=== PATIENT | female | born 1950 | race Caucasian/White ===

== ENCOUNTER → 2018-06-11 12:23 | Outpatient (CLI) | payer MEDICARE, OTHER, SELFPAY ==
[2018-06-11 11:09] VITALS: BMI 29.2
--- NOTE | 2018-06-11 12:46 | RAD_ITS ---
STUDY: X-RAY CHEST REASON FOR EXAM: Female, 68 years old. Shortness breath with cough and lightheadedness TECHNIQUE: PA and lateral views of the chest. COMPARISON: None. FINDINGS: There are interstitial fibrotic changes of the lungs. No airspace consolidation or pleural effusion. There is no demonstrated pleural abnormality. Normal size heart. Normal mediastinum and alison. Normal visualized pulmonary arteries. There is atherosclerotic calcification of the aortic arch with tortuosity. There is demineralization of the osseous structures. Normal visualized ribs, clavicles, and shoulders. There is no demonstrated abnormality of the visualized soft tissue structures of the upper abdomen. RAD/Chest PA and Lateral IMPRESSION: 1. No airspace consolidation or pleural effusion. Electronically Signed: Feliz Borges MD at 13:10 EST , Service support ,
== END ==
PROVIDERS: Family Provider Preventive Medicine Occupational Medicine; PCP Preventive Medicine Occupational Medicine; Visit Provider Physician Assistant Medical
DX: R06.02 Shortness of breath (principal); R05 Cough
CPT/HCPCS: 71046

== ENCOUNTER → 2021-02-25 | Outpatient (CLI) | payer MEDICARE, OTHER, SELFPAY ==
[2021-02-25 17:57] LABS: Bacteria 0 SEEN /hpf (None Seen); Mucous, Urine 0 SEEN /hpf (<or=2+); Red Blood Cells-Urine 0 SEEN /hpf (0-5)
[2021-02-25 18:03] LABS: Color, Urine Yellow (Yellow); Glucose, Dipstick Normal (Normal); Ketone-Dipstick 5 mg/dl (Negative); Leukocyte Esterase-Dipstick 25 /ul (Negative); Nitrite-Dipstick Negative (Negative); Occult Blood-Urine Negative /ul (Negative); Protein-Dipstick Negative (Negative); Specific Gravity, Urine 1.025 (1.002-1.030); Urine Bilirubin Dipstick Negative (Negative); Urine Clarity Clear (Clear); Urine Urobilinogen 1 mg/dl (Normal)
[2021-02-25 18:11] LABS: Squamous Epithelial Cells - UA 0-5 SEEN /hpf (5-10); White Blood Cells 0-5 SEEN /hpf (0-5)
== END | disposition home or self-care (01) ==
LOC: LABSPEC 16:44
PROVIDERS: PCP Preventive Medicine Occupational Medicine; Visit Provider Physician Assistant Surgical
DX: N39.0 Urinary tract infection, site not specified (principal)
CPT/HCPCS: 81001; 87086; 87088

== ENCOUNTER 2023-03-20 10:44 | Emergency (ER) | payer MEDICARE, OTHER, SELFPAY ==
[2023-03-20 10:45] VITALS: BP 222/103; PULSE 87; RESP 16; TEMP 36.3; O2SAT 98; BMI 30.9
--- NOTE | 2023-03-20 11:08 | VDLE_ITS ---
Reason For Study: Swelling BLE RIGHT LEFT GSV is normal. GSV is normal. CFV is compressible, spontaneous, phasic, CFV is compressible, spontaneous, phasic, competent and demonstrates normal competent, and demonstrates normal augmentation. augmentation. FV is compressible, spontaneous, phasic, FV is compressible, spontaneous, phasic, competent and demonstrates normal competent and demonstrates normal augmentation. augmentation. POP V is compressible, spontaneous, phasic, POP V is compressible, spontaneous, phasic, competent and demonstrates normal competent and demonstrates normal augmentation. augmentation. T/P Trunk is compressible. T/P Trunk is compressible. PTV is compressible. PTV is compressible. RT PerV is compressible. LT PerV is compressible. Difficult to visualize calf veins due to Patient unable to tolerate compressions at edema. distal thigh; relied on color doppler Procedure Difficult to visualize calf veins due to This is a venous duplex using B-mode, color edema. flow and spectral Doppler. Exam performed portable in ED. A preliminary report was called and/or faxed to Dr. Roque. VL/Venous Duplex US - Yovany Extrem Interpretation Summary Deep veins of the bilateral lower extremities are patent and compressible segme ntally. There is no evidence of bilateral lower extremity deep vein thrombosis. The bilateral great saphenous veins appear patent and compressible segmentally. Ordering Physician: María Roque Referring Physician: Edwin Vitale Performed By: Rody Jiang, FRANCESCA, RVT
--- NOTE | 2023-03-20 11:09 | EX.ED.DYSGE1 ---
HPI History of Present Illness Chief Complaint: Hypertension Detail of Chief Complaint: High blood pressure Informant: patient and spouse/S.O. Narrative Narrative: Patient presents the emergency department from [facility] for elevated blood pressure. Patient states that she went there because she has been having swelling and pain in both legs. Patient forgot to take one of her blood pressure medicines that she takes for the last several days. She was told she might be on the verge of a stroke and referred to the ER. Patient denies any chest pain or shortness of breath out of the ordinary. She denies recent travel or surgery. No history of PE or DVT. He has a mild headache. Patient not anticoagulated. [facility] Medical History Anemia Arthritis Diarrhea Fatigue Frequent headaches Hemorrhoids Hypertension Knee pain Shoulder pain stomach ulcers Home Medications celecoxib 200 mg capsule (Celebrex) 200 mg PO QDAY 08/08/17 [History Last Taken Unknown] conjugated estrogens 0.3 mg tablet (Premarin) PO 08/08/17 [History Last Taken Unknown] doxazosin 4 mg tablet 4 mg PO QDAY 08/08/17 [History Last Taken Unknown] lactobacillus combination no.8 3 billion cell capsule (Adult Probiotic) 3,000 mmu cells PO QDAY 08/08/17 [History Last Taken Unknown] omeprazole magnesium 2.5 mg oral suspension,delayed release (Prilosec) 10 mg PO QDAY 08/08/17 [History Last Taken Unknown] fluticasone propionate 50 mcg/actuation nasal spray,suspension (Flonase Allergy Relief) 2 spray intranasal DAILY #9.9 grams 01/09/18 [Rx Last Taken Unknown] phenazopyridine 200 mg tablet (Pyridium) 200 mg PO TID PRN urinary pain #10 tabs 07/26/22 [Rx Last Taken Unknown] furosemide 20 mg tablet (Lasix) 20 mg PO BID #10 tabs 03/20/23 [Rx Last Taken Unknown] Allergy/AdvReac Type Severity Reaction Status Date / Time Penicillins Allergy Intermediate Hives Verified 03/20/23 10:47 Sulfa (Sulfonamide Allergy Intermediate hives Verified 03/20/23 10:47 Antibiotics) adhesive tape Allergy Mild unknown Verified 03/20/23 10:47 Social History Smoking Status: Never smoker alcohol intake: never ROS ROS ED Review of Systems ROS Unobtainable: other Constitutional Constitutional ED: Reports lethargy; Denies chills, fever(s), sweats or weight loss Eyes Eyes: Denies blurry vision, change in vision or diplopia ENT ENT ED: Denies rhinorrhea or sore throat Cardiovascular Cardiovascular: Reports chest pain and racing heartbeat; Denies orthopnea Respiratory/Chest Respiratory/Chest: Denies cough, dyspnea, dyspnea on exertion, orthopnea or sputum Gastrointestinal Gastrointestinal: Denies abdominal pain, diarrhea, nausea or vomiting Genitourinary Genitourinary ED: Denies dysuria, hematuria or urinary frequency Musculoskeletal Musculoskeletal: Reports other Details: Bilateral leg pain and swelling ; Denies arthralgias, back pain, myalgias or neck pain Integumentary Denies abscess, Abrasions or rash Neurologic Neurologic: Denies headache(s) or weakness Psychiatric Psychiatric: Denies anxiety, depression or suicidal thoughts Endocrine Endocrinology: Denies polydipsia, polyphagia or polyuria Hematologic/Lymphatic Hematologic/Lymphatic: Denies easy bleeding, easy bruising or lymphadenopathy Allergic/Immunologic Allergic/Immunologic ED: Denies mouth swelling, tongue swelling or urticaria EXAM Physical Exam Const Vital Signs: 03/20/23 10:45 03/20/23 11:18 03/20/23 11:48 Temperature 97.4 F L Temperature Source Temporal Pulse Rate 87 Respiratory Rate 16 Respiratory Effort Normal Non-Labored Respiratory Pattern Normal Blood Pressure 222/103 H 237/81 H Blood Pressure Mean 142 133 Pulse Ox 98 Oxygen Delivery Method Room Air 03/20/23 12:18 03/20/23 13:10 03/20/23 13:39 Temperature Temperature Source Pulse Rate 81 Respiratory Rate 17 Respiratory Effort Respiratory Pattern Blood Pressure 191/85 H 182/67 H 170/77 H Blood Pressure Mean 120 105 108 Pulse Ox 98 Oxygen Delivery Method Room Air Positive well nourished and well developed General Appearance ED: well developed and NAD HEENT Reports TM's clear and moist mucous membranes normocephalic and atraumatic; Negative for trauma or tenderness Tympanic Membrane ED: Yes TM's clear Eyes PERRL and EOMs intact bilaterally General Eye ED: Negative for pale conjunctiva or scleral icterus Neck no lymphadenopathy, supple and no JVD General: Negative for tenderness Chest Wall inspection of chest normal and palpation of chest normal Chest: Negative for tenderness Resp normal respiratory effort and clear to auscultation bilaterally Effort and Inspection: Negative for respiratory distress or pain with movement Auscultation: Negative for rhonchi, wheezes or diminished lung sounds Cardio regular rate, regular rhythm, S1 normal heart sound, S2 normal heart sound and no murmurs Peripheral Pulses: pulses 2+ throughout GI normal to inspection, nondistended, normoactive bowel sounds, soft to palpation, non-tender, non-distended and no masses Back/Spine no CVA tenderness and no thoracic nor lumbar tenderness Extremity Extremity Narrative: Patient with +3 edema both lower extremities. No ropes or cords palpated. Neurovascular intact. General Extremety ED: Negative for edema General Extremity: Negative for edema Neuro oriented x3, CN's II-XII intact bilaterally, no sensory deficits noted and gait normal Sensorium / Orientation: awake, alert, oriented to person, oriented to place and oriented to time Motor Exam: strength 5/5 throughout and strength abnormal Psych mental status grossly normal Skin no rashes or lesions noted and no wounds MDM MDM MDM Narrative Medical decision making narrative: Patient presents with elevated blood pressure from urgent care. She was being seen for swelling in her legs. Patient has not been taking one of her blood pressure medications that she does not know the name of. IV line established. EKG obtained arrival showed sinus rhythm with a rate of 66 bpm with no acute ST segment changes noted. CBC with differential showed a white count of 4.9 with hemoglobin 8.5 and platelet count of 151. Chemistries unremarkable. BNP was slightly elevated at 101.3. Troponin normal at 7. Urinalysis without signs of infection. I did give patient hydralazine 5 mg and her blood pressure now 170s over 70s. I attempted to contact her primary care physician unsuccessfully to discuss further treatment. I recommended she go back on her second blood pressure medicine which she has at home she believes. I also will start her on Lasix for 5 days. And advised her to follow-up with her primary care physician within next 3 to 5 days. Also recommended that she monitor her blood pressure at home until she follows up with them and has a record of her blood pressures so that proper adjustments can be made. Patient also had venous Dopplers while here to rule out DVT and was negative for DVT. Lab Data Attestation: I reviewed the patient's lab results. Labs: Laboratory Results - last 24 hr 03/20/23 03/20/23 11:28 13:06 WBC 4.9 RBC 4.03 L Hgb 8.5 L Hct 29.4 L MCV 73.0 L MCH 21.1 L MCHC 28.9 L RDW Std Deviation 51.4 H RDW Coeff of Daphney 19.5 H Plt Count 151 MPV 11.2 Immature Gran % (Auto) 0.000 Neut % (Auto) 60.9 Lymph % (Auto) 30.8 [place] % (Auto) 6.9 Eos % (Auto) 0.8 Baso % (Auto) 0.6 Absolute Neuts (auto) 3.0 Absolute Lymphs (auto) 1.52 Nucleated RBC % 0 Sodium 141 Potassium 4.1 Chloride 110 H Carbon Dioxide 28.0 Anion Gap 3 L BUN 16 Creatinine 0.60 Estim Creat Clear Calc 40.21 Est GFR (MDRD) Af Amer 125 Est GFR (MDRD) Non-Af 103 BUN/Creatinine Ratio 26.5 H Glucose 95 Calcium 9.4 Troponin I High Sens 7 B-Natriuretic Peptide 101.3 H Urine Color Yellow Urine Clarity Sl. Cloudy Urine pH 6.5 Ur Specific [place] 1.010 Urine Protein Negative Urine Glucose (UA) Normal Urine Ketones 15 H Urine Occult Blood Negative Urine Nitrite Negative Urine Bilirubin Negative Urine Urobilinogen 1 H Ur Leukocyte Esterase 100 H Urine RBC 0 SEEN Urine WBC 10-25 SEEN Ur Squamous Epith Cells 0-5 SEEN Urine Bacteria 0 SEEN Urine Mucus 0 SEEN EKG Initial EKG: Attestation: I personally reviewed and interpreted this EKG as follows: Comments: Sinus rhythm with a rate of 66 bpm with no acute ST segment changes noted. Discharge Plan Triage Chief Complaint: Hypertension ED Provider: María Roque Dx/Rx/DC Orders Clinical Impression: Leg edema, Hypertension Instructions: ED Peripheral Edema, Bilateral, ED Hypertension, Established Prescriptions: New furosemide [Lasix] 20 mg tablet 20 mg PO BID Qty: 10 0RF No Action celecoxib [Celebrex] 200 mg capsule 200 mg PO QDAY omeprazole magnesium [Prilosec] 2.5 mg susp,delayed release for recon 10 mg PO QDAY lactobacillus combination no.8 [Adult Probiotic] 3 billion cell capsule 3,000 mmu cells PO QDAY doxazosin 4 mg tablet 4 mg PO QDAY conjugated estrogens [Premarin] 0.3 mg tablet PO fluticasone propionate [Flonase Allergy Relief] 50 mcg/actuation spray,suspension 2 spray INTRANASAL DAILY Qty: 9.9 0RF Rx Instructions: administer into each nostril phenazopyridine [Pyridium] 200 mg tablet 200 mg PO TID PRN (Reason: urinary pain) Qty: 10 0RF Primary Care Provider: Edwin Vitale Referrals: Edwin Vitale DO [Primary Care Provider] - 3-5 Days Disposition Disposition: Home, Self Care
--- NOTE | 2023-03-20 11:11 | EKG12_ITS ---
Test Reason : HTN Blood Pressure : / mmHG Vent. Rate : 066 BPM Atrial Rate : 066 BPM P-R Int : 222 ms QRS Dur : 090 ms QT Int : 410 ms P-R-T Axes : 052 -18 006 degrees QTc Int : 429 ms Sinus rhythm with 1st degree A-V block RSR' or QR pattern in V1 suggests right ventricular conduction delay Inferior infarct , age undetermined Abnormal ECG Confirmed by UMANG WEN, CHANEL ([id number]), supervising editor trailer SMITA JACKSON ([id number]) on 03/22/2023 9:46:08 AM Referred By: María Roque Confirmed By:CHANEL HECK MD
[2023-03-20 11:48] VITALS: BP 237/81
[2023-03-20 11:49] LABS: Absolute Lymphocyte Count 1.52 X10^3/uL (0.83-4.51); Basophil# 0.03 X10^3/uL; Basophil% 0.6 % (0-1); Eosinophil# 0.04 X10^3/uL; Eosinophils% 0.8 % (0-5); Hematocrit 29.4 % (37-47); Hemoglobin 8.5 g/dL (12.0-15.0); Lymphocyte # 1.52 X10^3/ul (0.83-4.51); Lymphocyte % 30.8 % (19-41); Mean Corp Hgb Conc 28.9 g/dL (32-36); Mean Corpuscular Hgb 21.1 pg (27.0-32.0); Mean Platelet Vol. 11.2 fl (6.2-12.0); Monocyte# 0.34 X10^3/uL; Monocyte% 6.9 % (0-10); NRBC Flagged by Analyzer 0 % (0-5); Neutrophil % 60.9 % (47-70); Platelet Count 151 K/mm3 (150-450); RBC Distribution Width CV 19.5 % (11.6-14.6); RBC Distribution Width SD 51.4 fl (35.1-43.9); Red Blood Count 4.03 M/mm3 (4.2-5.4); White Blood Count 4.9 K/mm3 (4.4-11.0)
[2023-03-20] MEDS: hydrALAZINE 20 MG/ML Vial 10 MG IV (11:52)
[2023-03-20 12:14] LABS: BNP,B-Type NATRIURETIC PEPTIDE 101.3 pg/mL (0-100)
[2023-03-20 12:18] VITALS: BP 191/85
[2023-03-20 12:50] LABS: Anion Gap 3 (5-15); BUN 16 mg/dL (7-18); BUN/Creat Ratio 26.5 RATIO (10-20); Calcium,Total 9.4 mg/dL (8.5-10.1); Chloride 110 mmol/L (98-107); EST Glomerular Filtration Rate 103 mL/min (>60); Est Glom Filt Rate - Afr Amer 125 mL/min (>60); Estimated Creatinine Clearance 40.21 ml/min; Glucose 95 mg/dL (74-106); Potassium 4.1 mmol/L (3.5-5.1); Sodium Level 141 mmol/L (136-145); Troponin-I HS 7 pg/mL (3.0-54.0)
[2023-03-20 13:10] VITALS: BP 182/67
[2023-03-20 13:29] LABS: Bacteria 0 SEEN /hpf (None Seen); Mucous, Urine 0 SEEN /hpf (<or=2+); Red Blood Cells-Urine 0 SEEN /hpf (0-5)
[2023-03-20 13:32] LABS: Color, Urine Yellow (Yellow); Glucose, Dipstick Normal (Normal); Ketone-Dipstick 15 mg/dl (Negative); Leukocyte Esterase-Dipstick 100 /ul (Negative); Nitrite-Dipstick Negative (Negative); Occult Blood-Urine Negative /ul (Negative); Protein-Dipstick Negative (Negative); Urine Bilirubin Dipstick Negative (Negative); Urine Clarity Sl. Cloudy (Clear); Urine Urobilinogen 1 mg/dl (Normal); Urine pH 6.5 (5.0 - 8.0)
[2023-03-20 13:39] VITALS: BP 170/77; PULSE 81; RESP 17; O2SAT 98
[2023-03-20 13:48] LABS: Squamous Epithelial Cells - UA 0-5 SEEN /hpf (5-10); White Blood Cells 10-25 SEEN /hpf (0-5)
[2023-03-20] MEDS: Furosemide 40 MG/4 ML Vial IV (14:09)
== END 2023-03-20 14:16 | disposition home or self-care (01) ==
PROVIDERS: Emergency Provider Emergency Medicine; PCP Preventive Medicine Occupational Medicine; Referring Provider Emergency Medicine; Visit Provider Emergency Medicine
DX: R60.0 Localized edema (principal); I10 Essential (primary) hypertension
CPT/HCPCS: 80048; 81001; 83880; 84484; 85025; 93005; 93970; 96374; 96375; 99284; A4216; J1940

== ENCOUNTER → 2023-04-14 | Outpatient (CLI) | payer MEDICARE, OTHER, SELFPAY ==
--- NOTE | 2023-04-14 11:05 | RAD_ITS ---
INDICATION: cough -- PATIENT IS IN ROOM 1 FOR WHEN THEY RETURN EXAMINATION/TECHNIQUE: X-RAY - XR Chest 2 Views COMPARISON: Prior study dated: 06/11/2018. FINDINGS: LINES/DEVICES: None. LUNGS: Mild stranding/scarring in the left lower lung. No focal infiltrate is seen. No evidence of pleural effusions. MEDIASTINUM AND CARDIOVASCULAR STRUCTURES: The cardiac silhouette is within normal limits. Atherosclerotic calcifications and tortuosity of the thoracic aorta. BONES AND SOFT TISSUES: Mild degenerative changes of the thoracic spine. RAD/Chest PA and Lateral IMPRESSION: No radiographic evidence of acute cardiopulmonary disease. Electronically Signed: Parveen Louise MD at 11:22 [facility] ,
== END | disposition home or self-care (01) ==
LOC: MTRAD 11:02
PROVIDERS: PCP Preventive Medicine Occupational Medicine; Referring Provider Physician Assistant Surgical; Visit Provider Physician Assistant Surgical
DX: R05.9 Cough, unspecified (principal)
CPT/HCPCS: 71046

== ENCOUNTER 2025-04-12 13:46 | Inpatient (IN) | payer MEDICARE, OTHER, SELFPAY ==
[2025-04-12] VITALS (45 sets, daily range): BP systolic 107–239; BP diastolic 56–119; PULSE 53–190; RESP 13–27; TEMP 36.4–36.6; O2SAT 96–100; BMI 31.8
--- NOTE | 2025-04-12 14:34 | ED.VIS.STROK ---
HPI History of Present Illness Chief Complaint: Dizziness Detail of Chief Complaint: Dizziness and acute bilateral headache Informant: patient and family Onset/Context/Timing Onset: Today and Hours Context: Sudden Onset Timing: Continuous Quality and Location: Positive for - (Dizziness which patient defined as floaters) Onset: 30 minutes prior to arrival Current Severity: Moderate Maximum Severity: Severe Worsened by: Nothing Relieved by: Nothing Associated Symptoms Associated Symptoms: Positive for Headache and Nausea; Negative for Vomiting or Chest Pain Narrative Narrative: Patient is a 75-year-old woman. She is not assertive with her answers. She will respond I believe so. After speaking with daughters who arrived after she was seen in triage they have noticed that she is not definitive with answering questions for approximately 3+ months. Daughter informing that she had just finished eating when she developed acute bilateral headache and dizziness . She was asked specifically if dizziness meant she was spinning, the room was spinning or she was lightheaded. Her response was I see black dots that are dancing in my vision. She denies loss of vision partial or complete, blurred vision or difficulty seeing objects or reading. She denies trouble with speech or swallowing. She denies chest pain, pressure, tightness or heaviness. She denies pain in her back. She does have a history of hypertension. She does not know what her baseline blood pressure is. She does endorse nausea without vomiting. She denies abdominal pain. She denies dysuria, frequency, urgency or hematuria. She denies numbness or tingling in her arms or legs. She denies trouble with her balance or walking. Prior similar symptoms: No Recent Illness/Hospitalization: No PFSH [facility] Medical History (Updated 04/12/25 @ 16:[address] Clemencia Yun MD) GERD (gastroesophageal reflux disease) History of gastric ulcer Frequent headaches Anemia Hemorrhoids Arthritis Hypertension Home Medications ?Medication ?Instructions ?Recorded ?Last Taken ?Type doxazosin 4 mg tablet 4 mg PO QDAY 08/08/17 Unknown History lactobacillus combination no.8 3 3,000 mmu cells PO QDAY 08/08/17 Unknown History billion cell capsule (Adult Probiotic) fluticasone propionate 50 2 spray intranasal DAILY #9.9 grams 01/09/18 Unknown Rx mcg/actuation nasal spray,suspension (Flonase Allergy Relief) atenolol 25 mg tablet 25 mg PO DAILY 04/12/25 Unknown History clobetasol 0.05 % topical cream 1 applic topical BID PRN yeast 04/12/25 Unknown History infection conjugated estrogens 0.625 mg 0.625 mg PO DAILY 04/12/25 Unknown History tablet (Premarin) ferrous gluconate 240 mg (27 mg 240 mg PO BID 04/12/25 Unknown History iron) tablet furosemide 20 mg tablet (Lasix) 20 mg PO DAILY 04/12/25 Unknown History omeprazole 20 mg capsule,delayed 20 mg PO DAILY 04/12/25 Unknown History release Allergy/AdvReac Type Severity Reaction Status Date / Time Penicillins Allergy Intermediate Hives Verified 04/12/25 13:49 Sulfa (Sulfonamide Allergy Intermediate hives Verified 04/12/25 13:49 Antibiotics) adhesive tape Allergy Mild unknown Verified 04/12/25 13:49 Family History no significant family his Social History (Updated 04/12/25 @ 16:[address] Clemencia Yun MD) household members: spouse Smoking Status: Former smoker alcohol intake: never substance use type: does not use ROS ROS ED Constitutional Constitutional ED: Denies chills, fever(s), subjective, sweats or weakness Eyes Eyes: Reports other Details: Per HPI narrative ; Denies blurry vision, change in vision or diplopia ENT ENT ED: Denies ear pain, rhinorrhea or sore throat Cardiovascular Cardiovascular: Denies chest pain, palpitations, paroxysmal nocturnal dyspnea or racing heartbeat Respiratory/Chest Respiratory/Chest: Denies cough, dyspnea, dyspnea on exertion or paroxysmal nocturnal dyspnea Gastrointestinal Gastrointestinal: Reports nausea; Denies abdominal pain, diarrhea, melena or vomiting Genitourinary Genitourinary ED: Denies dysuria, hematuria or urinary frequency Musculoskeletal Musculoskeletal: Reports neck pain; Denies arthralgias, back pain or myalgias Integumentary Denies abscess, Abrasions or rash Neurologic Neurologic: Reports headache(s); Denies paresthesias or weakness Psychiatric Psychiatric: Denies anxiety or depression Endocrine Endocrinology: Denies polydipsia, polyphagia or polyuria Hematologic/Lymphatic Hematologic/Lymphatic: Denies easy bleeding or easy bruising EXAM Physical Exam Const Vital Signs: 04/12/25 13:48 04/12/25 14:00 04/12/25 14:12 Temperature 98 F Temperature Source Temporal Pulse Rate 125 H 64 Respiratory Rate 16 18 Blood Pressure 189/94 H 239/99 H Blood Pressure Mean 125 145 Pulse Ox 99 98 97 Oxygen Delivery Method Room Air Room Air Room Air 04/12/25 14:13 04/12/25 14:15 04/12/25 14:15 Temperature Temperature Source Pulse Rate 118 H 119 H 120 H Respiratory Rate 19 H 17 23 H Blood Pressure 171/99 H 171/99 H Blood Pressure Mean 123 117 Pulse Ox 97 96 97 Oxygen Delivery Method Room Air 04/12/25 14:20 04/12/25 14:25 04/12/25 14:30 Temperature Temperature Source Pulse Rate 70 77 70 Respiratory Rate 22 H 18 16 Blood Pressure 202/72 H 209/113 H 187/109 H Blood Pressure Mean 106 132 135 Pulse Ox 99 98 98 Oxygen Delivery Method Room Air 04/12/25 14:30 04/12/25 14:35 04/12/25 14:40 Temperature Temperature Source Pulse Rate 125 H 53 L 59 L Respiratory Rate 18 18 20 H Blood Pressure 187/109 H 191/77 H 203/77 H Blood Pressure Mean 133 109 114 Pulse Ox 97 97 98 Oxygen Delivery Method 04/12/25 14:45 04/12/25 14:50 04/12/25 14:55 Temperature Temperature Source Pulse Rate 71 70 Respiratory Rate 13 16 Blood Pressure 170/116 H 195/72 H 158/96 H Blood Pressure Mean 132 106 111 Pulse Ox 98 97 Oxygen Delivery Method 04/12/25 15:00 04/12/25 15:00 04/12/25 15:05 Temperature Temperature Source Pulse Rate 155 H 190 H Respiratory Rate 24 H 23 H Blood Pressure 107/77 107/77 120/69 Blood Pressure Mean 88 88 83 Pulse Ox 99 Oxygen Delivery Method 04/12/25 15:10 04/12/25 15:15 04/12/25 15:20 Temperature Temperature Source Pulse Rate 87 84 70 Respiratory Rate 18 27 H 13 Blood Pressure 126/86 H 185/92 H 187/92 H Blood Pressure Mean 100 113 117 Pulse Ox 99 100 100 Oxygen Delivery Method 04/12/25 15:25 04/12/25 15:30 04/12/25 15:31 Temperature Temperature Source Pulse Rate 71 68 Respiratory Rate 22 H 16 Blood Pressure 192/94 H 190/87 H Blood Pressure Mean 116 111 Pulse Ox 96 100 Oxygen Delivery Method 04/12/25 15:35 04/12/25 15:40 04/12/25 15:45 Temperature Temperature Source Pulse Rate 75 76 115 H Respiratory Rate 18 19 H 16 Blood Pressure 197/99 H 204/90 H 176/107 H Blood Pressure Mean 125 121 129 Pulse Ox 99 99 98 Oxygen Delivery Method 04/12/25 15:50 04/12/25 15:55 04/12/25 16:00 Temperature Temperature Source Pulse Rate 115 H 77 77 Respiratory Rate 17 21 H 14 Blood Pressure 194/108 H 192/87 H 193/91 H Blood Pressure Mean 131 117 120 Pulse Ox 100 99 Oxygen Delivery Method 04/12/25 16:05 04/12/25 16:10 Temperature Temperature Source Pulse Rate 78 80 Respiratory Rate 20 H 15 Blood Pressure 200/79 H 185/81 H Blood Pressure Mean 112 109 Pulse Ox 99 99 Oxygen Delivery Method Positive well nourished and well developed General Appearance ED: well developed and NAD HEENT Reports moist mucous membranes atraumatic Eyes PERRL and EOMs intact bilaterally Eyes Narrative: There is no nystagmus. There is no visual field cut. There is no photophobia. There is no APD. She has miosis and unable to see fundi. Will not dilate until after CAT scan has been performed. General Eye ED: Negative for pale conjunctiva or scleral icterus Neck no lymphadenopathy, supple and no JVD Neck Narrative: There is no meningeal findings. Chest Wall inspection of chest normal and palpation of chest normal Resp normal respiratory effort and clear to auscultation bilaterally Cardio Rate: bradycardia Rhythm: regular rhythm Heart Sounds: S1 normal and S2 normal GI normal to inspection, nondistended, normoactive bowel sounds, soft to palpation, non-tender, non-distended and no masses Back/Spine no CVA tenderness Extremity normal to inspection Extremity Narrative: Minimal discoloration due to venous stasis dermatitis. General Extremety ED: Yes edema General Extremity: edema Neuro oriented x3, CN's II-XII intact bilaterally and no sensory deficits noted Neuro Narrative: There is no clonus Babinski sign noted right or left. Mariajose Coma Scale: document GCS findings Spontaneous Obeys Commands Oriented 15 Sensorium / Orientation: alert Speech: speech normal Motor Exam: strength 5/5 throughout Psych mental status grossly normal Skin no wounds Lesions: no lesions Rashes: no rashes MDM MDM MDM Narrative Medical decision making narrative: With abrupt onset of headache need to evaluate for tension headache versus vascular headache versus subarachnoid hemorrhage versus hypertensive bleed versus giant cell arteritis since she has pain over the temporal area bilaterally. This would be unusual, however. Stroke order set was initiated. I was unaware that the stroke order set for hemorrhage did not include a CAT scan so there was a delay in ordering the CAT scan. Patient was bradycardic with a blood pressure of 205 systolic. Apresoline was ordered. Patient received the Apresoline. She was then sent to radiology suite for CAT scan. iv technician called because of a heart rate of 190. Patient was brought back because of significant drop in her pressure. She was noted to have a narrow complex tachycardia. Regular and consistent with PSVT on the monitor. EKG was obtained and confirms paroxysmal supraventricular tachycardic. She has ST segment abnormality in aVR, V1 with elevation and depression in 1, 2, V2, V3 4, 5 and 6. There was no EKG obtained prior to this. Patient was treated with 6 mg of adenosine. Her rhythm broke and what appeared to be a sinus rhythm. EKG was obtained and reveals a rate of 84 in my opinion sinus. Computer is reading as atrial fibrillation. There is premature complex noted as it was a ventricular premature beat nonapparent beat. QRS duration is 84 ms. QT duration 3 to 34 ms. Morrison is normal. Because of the computer reading A-fib I obtained a rhythm strip and in my opinion patient is in a sinus rhythm at this point with a rate that is varying. Nursing staff informing that her pressure is elevated again. I informed them to give the 5 mg of metoprolol. Her heart rates in the 70 to 80s at this point. She is now having a regular rhythm will obtain EKG to determine if there is any ischemic changes that is present especially since her rate is now normal. 30 EKG reveals normal sinus rhythm rate of 73. There is no ischemic changes. There is no ST elevation in aVR or V1. The inverted T waves are noted in lead II, 3 and the 2 through V6 are probably rate dependent. She was symptomatic when she was in PSVT. Need to consider coronary artery disease especially in a patient of 75 years of age. For this reason serial troponins were ordered. History & Record Review Additional record(s) reviewed:: Prior outpatient record (Seen March 20 for acute pharyngitis, note authored by Kwaku Mak. Seen February at urgent care and note authored by Shankar Huynh for sinusitis. Seen May 2024 for otitis media) and Prior labs (ER visit March 20, 2023 for hypertension. Note authored by Dr. Greenfield. She was seen in the urgent care prior to ER visit. She was discharged from the ER.) Lab Data Attestation: I reviewed the patient's lab results. Lab results narrative: CBC is unremarkable. Lactate is normal at 1.9. Comprehensive metabolic panel is remarkable for slightly elevated chloride at 107 and glucose of 127. CO2 and anion gap are normal. Hepatic profile is normal. First troponin is slightly elevated. Labs: Laboratory Results - last 24 hr 04/12/25 04/12/25 14:02 15:16 WBC 6.6 RBC 4.37 Hgb 13.5 Hct 42.0 MCV 96.1 MCH 30.9 MCHC 32.1 RDW Std Deviation 48.8 H RDW Coeff of Daphney 13.6 Plt Count 144 L MPV 12.4 H Immature Gran % (Auto) 0.300 Neut % (Auto) 71.4 H Lymph % (Auto) 20.8 [place] % (Auto) 6.0 Eos % (Auto) 1.2 Baso % (Auto) 0.3 Absolute Neuts (auto) 4.7 Absolute Lymphs (auto) 1.38 Nucleated RBC % 0 ESR 1 PT 13.3 INR 1.0 APTT 26.1 Sodium 145 Potassium 3.9 Chloride 107 H Carbon Dioxide 24.7 Anion Gap 13 BUN 15 Creatinine 0.70 Estim Creat Clear Calc 59.54 Est GFR (MDRD) Non-Af 89 BUN/Creatinine Ratio 20.9 H Glucose 127 H Lactic Acid 1.9 Calcium 10.5 Total Bilirubin 0.50 AST 16 ALT 10 Alkaline Phosphatase 81 Troponin T High Sens 20 H Total Protein 6.3 Albumin 4.0 Globulin 2.3 Albumin/Globulin Ratio 1.8 Radiography Diagnostic Testing: Clinical Impression(s) from Imaging Studies Brain CT 04/12/25 15:31 IMPRESSION: No acute intracranial abnormalities. Reading Location: [facility] Management Discussion w/another healthcare provider: Hospitalist (Spoke to the hospitalist, Dr. Clemencia Yun, who will admit patient and consult cardiology.) Treatment and Re-Evaluation Narrative: Patient up initially had some complaints of numbness on the right side. When she complained of numbness she was noted to have a low blood pressure according to the granddaughter who is in the medical field. When she arrived here her pressure was elevated and she no longer had the numbness in her arm. My initial concern was because of abrupt headache a subarachnoid hemorrhage. Since the headache started less than 6 hours prior to presentation and she has a normal CAT scan subarachnoid hemorrhage has been ruled out. While she was in the emergency prior she has had multiple occasions where she has had a narrow complex tachycardia up to 200. She has dropped her pressure during these episodes. I presume when she was hypotensive she had a rapid heart rate since every time she has a rapid heart rate here she drops her pressure. She did receive metoprolol which has somewhat controlled her heart rate to the 110-120 area. Her pressure is elevated again. Since she is tachycardic with elevated blood pressure 10 mg of labetalol was ordered IV push. Will janki hospitalist for admission. Critical Care Time Critical Care Time: Yes Critical care time (excluding procedures): 30-74 minutes (34), Including time spent: (History, physical, documentation, review of prior records, discussion with granddaughter and daughter. Independent interpretation of laboratory results and EKG), Discussing w/Patient &/or Family/Exercise Equipment Specialist, Discussing w/Consultants and Arranging Admission or Transfer Discharge Plan Dx/Rx/DC Orders Clinical Impression: Symptomatic tachycardia, Paroxysmal supraventricular tachycardia, Accelerated hypertension, Dependent lymphedema Disposition Disposition: Acute Care Hospital [facility] NIHSS NIHSS 1a. Level of Consciousness: 0 - Alert; keenly responsive 1b. LOC Questions: 0 - Answers BOTH questions correctly 1c. LOC Commands: 0 - Performs BOTH tasks correctly 2. Best Gaze: 0 - Normal 3. Visual: 0 - No visual loss 4. Facial Palsy: 0 - Normal symmetrical movements 5a. Left Arm: 0 - No drift; arm holds 90 (or 45) degrees for full 10 seconds 5b. Right Arm: 0 - No drift; arm holds 90 (or 45) degrees for full 10 seconds 6a. Left Le - No drift; leg holds 30-degree position for full 5 seconds 6b. Right Le - No drift; leg holds 30-degree position for full 5 seconds 7. Limb Ataxia: 0 - Absent 8. Sensory: 0 - Normal; no sensory loss 9. Best Language: 0 - No aphasia; normal 10. Dysarthria: 0 - Normal 11. Extinction and Inattention: 0 - No abnormality Total: 0 Stroke Questions Stroke Team Activated: No Reviewed Inclusion/Exclusion criteria: Yes
--- OUTSIDE RECORDS SUMMARY | 2025-04-12 14:37 | XMS RPT_ITS | CCD ---
Author Organization [facility] Care Team Providers Care Utilization Review Coordinator Name Role Phone Pcp, No Primary Care Provider Unavailabl e MAKSIM VITALE DO Primary Care Physician Dr. Maksim Vitale Primary Care Provider Dr. Maksim Vitale Referring Provider [phone] LOC Freed Attending Provider Dr. Jo Ann Leroy Attending Provider [phone] María Roque Referring Provider [phone] MAKSIM VITALE DO Attending Unavailable MAKSIM VITALE DO Primary Care Unavailable MAKSIM VITALE DO Attending Unavailable MAKSIM VITALE DO Primary Care Unavailable MAKSIM VITALE DO Attending Unavailable MAKSIM VITALE DO Primary Care Unavailable Jas Freed Attending Unavailable Maksim Vitale Referring Unavailable Maksim Vitale Primary Care Unavailable Brittney Cross Attending Unavailable Maksim Vitale Referring Unavailable Maksim Vitale Primary Care Unavailable CHANDLER LOFTON Primary Care Physician MAKSIM VITALE DO Attending Unavailable MAKSIM VITALE DO Primary Care Unavailable CHANDLER LOFTON Primary Care LISA Tyler MD Attending Unavailable MAKSIM VITALE DO Primary Care Unavailable LISA ENGEL MD Attending Unavailable Allergies Allergy Classification Reported Allergen(s) Allergy Type Date of Onset Reaction(s) Facility (4 sources) Acetaminophen / oxyCODONE; Translations: [acetaminophen-ox ycodone] Drug Allergy Hallucinations [facility] (4 sources) Adhesive Tape Allergy to substance [facility] (3 sources) Penicillin; Translations: [penicillins] Drug Allergy [facility] (1 source) Sulfonamides (Antibiotic); Translations: [sulfa drugs] Drug allergy [facility] (2 sources) Adhesive Tape; Translations: [adhesive tape] Allergy to substance 3 unknown [facility] (1 source) Penicillins Allergy to substance 3 [facility] (1 source) Sulfonamides (Antibiotic) Allergy to substance 3 [facility] (3 sources) Sulfonamide; Translations: [sulfa drugs] Drug allergy [facility] (1 source) Penicillins Drug allergy (disorder) 5 [facility] (1 source) Sulfonamides (Antibiotic) Drug allergy (disorder) 5 [facility] (1 source) Penicillin; Translations: [penicillins] Drug Allergy [facility] Medications Current Medications Medication Drug Class(es) Dates Sig (Normalized) Sig (Original) atenolol 25 mg oral tablet (5 sources) beta-Adrenergic Cindi Start: 11-24-2024 atenolol 25 mg oral tablet Dose : 25 mg = 1 tab(s), Oral, qDay, IN LIEU OF PCP, # 30 tab(s), 0 Refill(s), Pharmacy: [facility]/pharmacy #[id number], HTN (hypertension), 153, cm, 08/24/24 11:25:00 EDT, Height, kg, 08/24/24 11:25:00 EDT, Dosing Weight Start Date: 11/24/24 Status: Ordered Medication Dispense Status: Completed Quantity: 30.0 Unit: tab(s) Total Allowed Fills: 1 Fills Dispensed: 0 Indications: Essential (primary) hypertension; Start: 12-16-2023 atenolol 25 mg oral tablet Dose : 25 mg = 1 tab(s), Oral, qDay, # 90 tab(s), 3 Refill(s), Pharmacy: [facility]/pharmacy #[id number], HTN (hypertension), 150.5, cm, 12/16/23 13:27:00 EDT, Height, kg, 12/16/23 13:27:00 EDT, Dosing Weight Start Date: 12/16/23 Status: Ordered Start: 12-04-2023 atenolol 50 mg oral tablet Dose : 50 mg = 1 tab(s), Oral, qDay, # 90 tab(s), 3 Refill(s), [facility]: [facility] #[id number], 156, cm, 10/19/22 15:33:00 EDT, Height, kg, 10/19/22 15:33:00 EDT, Dosing Weight Start Date: 03/22/23 Status: Ordered Start: 10-19-2022 atenolol 50 mg oral tablet Dose : 50 mg = 1 tab(s), Oral, qDay, # 90 tab(s), 3 Refill(s), [facility]: [facility] #[id number], 156, cm, 10/19/22 15:33:00 EDT, Height, kg, 10/19/22 15:33:00 EDT, Dosing Weight Start Date: 10/19/22 Status: Ordered Start: 08-08-2017 End: 07-26-2022 take 50 mg by mouth once daily Atenolol Discontinued 50 MG PO daily August 07, 2017 11:00pm July 26, 2022 10:30am celecoxib 200 mg oral capsule (1 source) Nonsteroidal Anti-inflammatory Drug Start: 08-08-2017 take 1 capsule by mouth once daily Celecoxib (Celebrex) 200 mg capsule Active 200 MG PO daily August 07, 2017 11:00pm doxazosin 4 mg oral tablet (5 sources) alpha-Adrenergic Cindi Start: 12-16-2023 End: 12-10-2024 doxazosin 4 mg oral tablet Dose : 4 mg = 1 tab(s), Oral, qDay, IN LIEU OF PCP, # 30 tab(s), 0 Refill(s), Pharmacy: [facility]/pharmacy #[id number], 153, cm, 08/24/24 11:25:00 EDT, Height, kg, 08/24/24 11:25:00 EDT, Dosing Weight Start Date: 11/24/24 Status: Ordered Medication Dispense Status: Completed Quantity: 30.0 Unit: tab(s) Total Allowed Fills: 1 Fills Dispensed: 0 Start: 08-08-2017 doxazosin 4 mg oral tablet Dose : 4 mg = 1 tab(s), Oral, qDay, # 90 tab(s), 3 Refill(s), Pharmacy: [facility] #[id number], 156, cm, 10/19/22 15:33:00 EDT, Height, kg, 10/19/22 15:33:00 EDT, Dosing Weight Start Date: 10/19/22 Status: Ordered estrogens, conjugated (mcc) 0.625 mg oral tablet (5 sources) Estrogen Start: 11-24-2024 Premarin 0.625 mg oral tablet Dose : 0.625 mg = 1 tab(s), Oral, qDay, IN LIEU OF PCP, # 30 tab(s), 0 Refill(s), Pharmacy: [facility]/pharmacy #[id number], 153, cm, 08/24/24 11:25:00 EDT, Height, kg, 08/24/24 11:25:00 EDT, Dosing Weight Start Date: 11/24/24 Status: Ordered Medication Dispense Status: Completed Quantity: 30.0 Unit: tab(s) Total Allowed Fills: 1 Fills Dispensed: 0 Start: 12-16-2023 Premarin 0.625 mg oral tablet Dose : 0.625 mg = 1 tab(s), Oral, qDay, # 90 tab(s), 3 Refill(s), Pharmacy: [facility]/pharmacy #[id number], 150.5, cm, 12/16/23 13:27:00 EDT, Height, kg, 12/16/23 13:27:00 EDT, Dosing Weight Start Date: 12/16/23 Status: Ordered Start: 10-19-2022 Premarin 0.625 mg oral tablet Dose : 0.625 mg = 1 tab(s), Oral, qDay, # 90 tab(s), 3 Refill(s), Pharmacy: [facility] #[id number], 156, cm, 10/19/22 15:33:00 EDT, Height, kg, 10/19/22 15:33:00 EDT, Dosing Weight Start Date: 10/19/22 Status: Ordered Start: 08-08-2017 Conjugated Est rogens (Premarin) 0.3 mg tablet Active PO August 07, 2017 11:00pm ferrous gluconate 240 mg oral tablet (2 sources) Start: 12-16-2023 End: 12-10-2024 ferrous gluconate 240 mg (27 mg elemental iron) oral tablet Dose : 240 mg = 1 tab(s), Oral, BID, Take with food. IN LIEU OF PCP, # 60 tab(s), 0 Refill(s), Pharmacy: [facility]/pharmacy #[id number], Iron deficiency anemia, 153, cm, 08/24/24 11:25:00 EDT, Height, kg, 08/24/24 11:25:00 EDT, Dosing Weight Start Date: 11/24/24 Status: Ordered Medication Dispense Status: Completed Quantity: 60.0 Unit: tab(s) Total Allowed Fills: 1 Fills Dispensed: 0 Indications: Other iron deficiency anemias; fluconazole 100 mg oral tablet (2 sources) Azole Antifungal Start: 08-21-2024 fluconazole 1 00 mg oral tablet Dose : 100 mg = 1 tab(s), Oral, qDay, # 90 tab(s), 0 Refill(s), Pharmacy: [facility]/pharmacy #[id number], 153.4, cm, 07/10/24 13:02:00 EDT, Height, 83.4, kg, 07/10/24 13:02:00 EDT, Dosing Weight Start Date: 08/21/24 Status: Ordered Medication Dispense Status: Completed Quantity: 90.0 Unit: tab(s) Total Allowed Fills: 1 Fills Dispensed: 0 Start: 12-16-2023 fluconazole 10 0 mg oral tablet See Instructions, take 2 tablets by mouth on day 1 then 1 tablet daily ON DAYS 2 THROUGH 10, # 33 tab(s), 2 Refill(s), [id number], 150.5, cm, 12/16/23 13:27:00 EDT, Height, 81.2, kg, 12/16/23 13:27:00 EDT, Dosing Weight Start Date: 12/16/23 Status: Ordered fluticasone propionate 0.05 mg/actuat metered dose nasal spray (2 sources) Corticosteroid Start: 01-09-2018 take 1 spray(s) nasal route once daily Fluticasone Propionate (Flonase Allergy Relief) 50 mcg/actuation spray,suspension Active 2 SPRAY INTRANASAL DAILY 9.9 January 08, 2018 11:00pm administer into each nostril Start: 08-08-2017 End: 08-15-2017 take 1 spray(s) nasal route once daily Fluticasone Propionate (Flonase Allergy Relief) 50 mcg/actuation spray,suspension Discontinued 2 SPRAY INTRANASAL daily 9.9 August 07, 2017 11:00pm August 15, 2017 9:24am administer into each nostril furosemide 20 mg oral tablet (4 sources) Loop Diuretic Start: 12-16-2023 End: 12-10-2024 furosemide 20 mg oral tablet Dose : 20 mg = 1 tab(s), Oral, qDay, PRN Swelling, IN LIEU OF PCP, # 30 tab(s), 0 Refill(s), Pharmacy: [facility]/pharmacy #[id number], Edema leg, 153, cm, 08/24/24 11:25:00 EDT, Height, kg, 08/24/24 11:25:00 EDT, Dosing Weight Start Date: 11/24/24 Status: Ordered Medication Dispense Status: Completed Quantity: 30.0 Unit: tab(s) Total Allowed Fills: 1 Fills Dispensed: 0 Indications: Localized edema; Start: 03-20-2023 furosemide 20 mg oral tablet Dose : 20 mg = 1 tab(s), Oral, qDay, PRN Swelling, # 30 tab(s), 2 Refill(s), Pharmacy: [facility] #[id number], Localized swelling of left lower leg, 155, cm, 04/15/23 15:18:00 EST, Height, kg, 04/15/23 15:18:00 EST, Dosing Weight Start Date: 04/15/23 Status: Ordered ipratropium bromide 0.021 mg/actuat metered dose nasal spray (1 source) Anticholinergic Start: 08-21-2024 End: 02-17-2025 ipratropium 21 mcg/inh (0.03%) nasal spray 42 mcg Dose = 2 spray(s), Nasal, TID, PRN as needed for allergy symptoms, # 3 EA, 1 Refill(s), Pharmacy: [facility]/pharmacy #[id number], 153.4, cm, 07/10/24 13:02:00 EDT, Height, kg, 07/10/24 13:02:00 EDT, Dosing Weight Start Date: 08/21/24 Stop Date: 02/17/25 Status: Ordered Medication Dispense Status: Completed Quantity: 3.0 Unit: EA Total Allowed Fills: 2 Fills Dispensed: 0 Lactobacillus Combination No.8 (Adult Probiotic) 3 billion cell capsule (1 source) Start: 08-08-2017 take 3 capsules by mouth once daily Lactobacillus Combination No.8 (Adult Probiotic) 3 billion cell capsule Active 3000 MMU CELLS PO daily August 07, 2017 11:00pm omeprazole 20 mg delayed release oral capsule (5 sources) Proton Pump Inhibitor Start: 11-24-2024 omeprazole 20 mg oral delayed release capsule Dose : 20 mg = 1 cap(s), Oral, qDay, IN LIEU OF PCP, # 30 cap(s), 0 Refill(s), Pharmacy: [facility]/pharmacy #[id number], GERD without esophagitis, 153, cm, 08/24/24 11:25:00 EDT, Height, kg, 08/24/24 11:25:00 EDT, Dosing Weight Start Date: 11/24/24 Status: Ordered Medication Dispense Status: Completed Quantity: 30.0 Unit: cap(s) Total Allowed Fills: 1 Fills Dispensed: 0 Indications: Gastro-esophageal reflux disease without esophagitis; Start: 10-19-2022 omeprazole 20 mg oral delayed release capsule Dose : 20 mg = 1 cap(s), Oral, qDay, # 90 cap(s), 3 Refill(s), Pharmacy: [facility] #[id number], 156, cm, 10/19/22 15:33:00 EDT, Height Start Date: 10/19/22 Status: Ordered Start: 08-08-2017 take 10 mg by mouth once daily Omeprazole Magnesium (Prilosec) 2.5 mg susp,delayed release for recon Active 10 MG PO daily August 07, 2017 11:00pm phenazopyridine hydrochloride 200 mg oral tablet (2 sources) Start: 07-26-2022 take 1 tablet by mouth three times daily Phenazopyridine (Pyridium) 200 mg tablet Active 200 MG PO THREE TIMES A DAY July 25, 2022 11:00pm Start: 02-25-2021 End: 07-26-2022 take 1 tablet by mouth three times daily at mealtime Phenazopyridine (Pyridium) 100 mg tablet Discontinued 100 MG PO THREE TIMES A DAY February 25, 2021 12:00am July 26, 2022 10:30am administer with a full glass of water after each meal Helios (4 sources) Start: 06-06-2016 take 1 capsule by mouth once daily Helios Dose = 1 cap(s), Oral, qDay Start Date: 06/06/16 Status: Ordered Medication Dispense Status: Completed Total Allowed Fills: 1 Fills Dispensed: 0 Start: 06-06-2016 take 1 capsule by mo ut once daily [facility] Dose = 1 cap(s), Oral, qDay Start Date: 06/06/16 Status: Ordered vitamin B12 (4 sources) Vitamin B12 Start: 06-06-2016 take 1 dose under the tongue once daily Vitamin B12 Dose : 3,000 mcg =, Sublingual, qDay Start Date: 06/06/16 Status: Ordered Medication Dispense Status: Completed Total Allowed Fills: 1 Fills Dispensed: 0 Start: 06-06-2016 take 1 dose under th e tongue once daily Vitamin B12 Dose : 3,000 mcg =, Sublingual, qDay Start Date: 06/06/16 Status: Ordered Vitamin D with Minerals oral tablet (4 sources) Start: 06-06-2016 take 1 tablet by mouth once daily Vitamin D with Minerals oral tablet Dose = 1 tab(s), Oral, qDay Start Date: 06/06/16 Status: Ordered Medication Dispense Status: Completed Total Allowed Fills: 1 Fills Dispensed: 0 Start: 06-06-2016 take 1 tablet by mouth once da talia Vitamin D with Minerals oral tablet Dose = 1 tab(s), Oral, qDay Start Date: 06/06/16 Status: Ordered Completed/Discontinued Medications Medication Drug Class(es) Dates Sig (Normalized) Sig (Original) ALPRAZolam 0.5 mg oral tablet (2 sources) Benzodiazepine Start: 06-22-2024 End: 07-07-2024 ALPRAZolam 0.5 mg oral tablet Dose : 0.5 mg = 1 tab(s), Oral, BID, PRN as needed for anxiety, # 30 tab(s), 0 Refill(s), Pharmacy: [facility]/pharmacy #[id number], Anxiety, 153.4, cm, 06/22/24 13:05:00 EST, Height, 82.3, kg, 06/22/24 13:05:00 EST, Dosing Weight Start Date: 06/22/24 Stop Date: 07/07/24 Status: Ordered Medication Dispense Status: Completed Quantity: 30.0 Unit: tab(s) Total Allowed Fills: 1 Fills Dispensed: 0 Indications: Anxiety disorder, unspecified; Start: 12-16-2023 End: 12-31-2023 ALPRAZolam 0.5 mg oral table t Dose : 0.5 mg = 1 tab(s), Oral, BID, PRN as needed for anxiety, # 30 tab(s), 0 Refill(s), Pharmacy: [facility]/pharmacy #[id number], Anxiety, 150.5, cm, 12/16/23 13:27:00 EDT, Height, 81.2, kg, 12/16/23 13:27:00 EDT, Dosing Weight Start Date: 12/16/23 Stop Date: 12/31/23 Status: Ordered azithromycin 250 mg oral tablet (3 sources) Macrolide Antimicrobial Start: 01-09-2018 End: 02-25-2021 Azithromycin Discontinued 0 PO .COMPLEX January 23, 2018 11:00pm February 25, 2021 11:36am take 500 mg today (day 1), then 250 mg for 4 days (days 2-5) PO Start: 08-08-2017 End: 08-15-2017 take 2-5 tablets by mouth once daily Azithromycin (Zithromax Z-Ming) 250 mg tablet Discontinued 0 PO .COMPLEX 6 August 07, 2017 11:00pm August 15, 2017 9:24am take 500 mg today (day 1), then 250 mg for 4 days (days 2-5) PO Clobetasol (1 source) Corticosteroid Start: 12-16-2023 End: 02-10-2024 Clobetasol (Eqv-Temovate) 0.05% topical cream Dose = 1 mimi, Topical, BID, PRN Rash, X 14 day(s), # 45 gram(s), 3 Refill(s), Pharmacy: [facility]/pharmacy #[id number], 150.5, cm, 12/16/23 13:27:00 EDT, Height, kg, 12/16/23 13:27:00 EDT, Dosing Weight Start Date: 12/16/23 Stop Date: 02/10/24 Status: Ordered doxycycline hyclate 100 mg oral capsule (5 sources) Tetracycline-class Drug Start: 04-14-2023 End: 04-25-2023 doxycycline hyclate 100 mg oral capsule Dose : 100 mg = 1 cap(s), Oral, BID, # 20 cap(s), 0 Refill(s), 77.8 Start Date: 04/15/23 Stop Date: 04/25/23 Status: Ordered Start: 07-26-2022 End: 08-05-2022 take 100 mg by mouth twice daily Doxycycline Hyclate Discontinued 100 MG PO TWICE A DAY 05 02July 25, 2022 11:00pm August 04, 2022 11:05pm Start: 02-25-2021 End: 03-07-2021 take 100 mg by mouth twice daily Doxycycline Hyclate Discontinued 100 MG PO TWICE A DAY 05 02February 25, 2021 12:00am March 07, 2021 12:01am Start: 08-15-2017 End: 08-25-2017 take 100 mg by mouth every twelve hours Doxycycline Monohydrate Discontinued 100 MG PO Q12H 05 02August 14, 2017 11:00pm August 24, 2017 11:05pm losartan potassium 50 mg oral tablet (1 source) Angiotensin 2 Receptor Cindi Start: 08-08-2017 End: 07-26-2022 take 50 mg by mouth once daily Losartan Discontinued 50 MG PO daily August 07, 2017 11:00pm July 26, 2022 10:30am methylPREDNISolone 4 mg oral tablet (1 source) Corticosteroid Start: 01-24-2018 End: 01-29-2018 take 1 tablet by mouth once Methylprednisolone (Medrol (Ming)) 4 mg tablets,dose pack Discontinued 4 MG PO per package directions 06 09January 23, 2018 11:00pm January 28, 2018 11:11pm mupirocin 20 mg/ml topical cream (1 source) RNA Synthetase Inhibitor Antibacterial Start: 08-21-2024 End: 09-10-2024 mupirocin 2% topical cream Apply 1 mimi, Topical, TID, APPLY TOPICALLY TWICE A DAY, # 30 gram(s), 1 Refill(s), Pharmacy: [facility]/pharmacy #[id number], Cream, 153.4, cm, 07/10/24 13:02:00 EDT, Height, 83.4, kg, 07/10/24 13:02:00 EDT, Dosing Weight Start Date: 08/21/24 Stop Date: 09/10/24 Status: Ordered Medication Dispense Status: Completed Quantity: 30.0 Unit: g Total Allowed Fills: 2 Fills Dispensed: 0 predniSONE 20 mg oral tablet (1 source) Start: 08-08-2017 End: 08-15-2017 Prednisone Discontinued 20 MG PO .COMPLEX 11 August 07, 2017 11:00pm August 15, 2017 9:24am take 2 pills for the next 4 days then one pill for 3 days; administer with food or milk Problems Active Problems Problem Classification Problem Date Documented Da te Episodic/Chronic Acute bronchitis (2 sources) Acute bronchitis; Translations: [Acute bronchitis, unspecified] 04-14-2023 Episodic Allergic reactions (4 sources) Chronic eczema 08-24-2022 Episodic Anxiety disorders (4 sources) Anxiety disorder 07-02-2020 Chronic Coagulation and hemorrhagic disorders (1 source) Thrombocytopenic disorder 07-11-2024 Chronic Deficiency and other anemia (2 sources) Anemia; Translations: [Anemia, unspecified] Episodic Deficiency and other anemia (2 sources) Iron deficiency anemia 05-12-2023 Episodic Esophageal disorders (4 sources) Gastroesophageal reflux disease without esophagitis 10-19-2022 Chronic Essential hypertension (6 sources) Hypertensive disorder; Translations: [Essential (primary) hypertension] 11-08-2015 Chronic Hypertension with complications and secondary hypertension (2 sources) Hypertensive urgency ; Translations: [Hypertensive urgency] 03-20-2023 Chronic Menopausal disorders (4 sources) Menopausal symptom 08-02-2019 Chronic Mycoses (6 sources) Chronic atrophic candidiasis; Translations: [Candidiasis] 05-09-2019 Episodic Nonmalignant breast conditions (4 sources) Fibrocystic disease of breast 05-09-2019 Chronic Nutritional deficiencies (4 sources) Vitamin D deficiency 05-09-2019 Chronic Nutritional deficiencies (4 sources) Cobalamin deficiency 05-09-2019 Episodic Other eye disorders (4 sources) Tear film insufficiency 07-02-2020 Episodic Other gastrointestinal disorders (2 sources) Drug-induced constipation 06-10-2023 Episodic Other upper respiratory disease (1 source) Seasonal allergy 08-24-2024 Chronic Other upper respiratory infections (2 sources) Acute sinusitis; Translations: [Acute sinusitis, unspecified] 01-24-2018 Episodic Otitis media and related conditions (1 source) Otitis media 08-24-2024 Episodic Residual codes; unclassified (4 sources) Edema of lower extremity; Translations: [Localized edema] 03-28-2023 Episodic Residual codes; unclassified (1 source) Localized edema; Translations: [Localized edema] Episodic Spondylosis; intervertebral disc disorders; other back problems (4 sources) Degeneration of lumbar intervertebral disc 01-01-2020 Chronic Urinary tract infections (1 source) Urinary tract infectious disease; Translations: [Urinary tract infection, site not specified] 02-25-2021 Episodic Past or Other Problems Problem Classification Problem Date Documented Da te Episodic/Chronic Unclassified (1 source) stomach ulcers 11-13-2021 Results Test Name Value Interpretation Reference Range Facility Urgent Care Visit Reporton 0 08-11-2024 Urgent Care Visit Report [facility] [address], [address] [place] [address] OFFICE VISIT Date of Service: 08/11/24 MR#: [id number] Acct: [id number] Name: IVAN MARTINES Rep #: [id number] : 1950 Provider: LOC Abel Age/Sex: 74/F [place] [facility] Status: Signed Intake Vital Signs 06/03/24 09:39 08/11/24 08:49 Height 5 ft 3 in BP 166/78 H Blood Pressure Location Lt brachial Position Sitting Respiration 17 Pulse 80 Pulse Source NIBP Temp 97.9 F Temp Source Oral Pulse Oximetry (%) 97 Oxygen Delivery Method room air Intake Visit Reasons: R EAR ACHE Chief Complaint: bilat ears Jailkeeper Required: No Is patient in pain?: Yes Allergies Penicillins Allergy (Intermediate, Verified 08/11/24 08:50) Hives Sulfa (Sulfonamide Antibiotics) Allergy (Intermediate, Verified 08/11/24 08:50) hives adhesive tape Allergy (Mild, Verified 08/11/24 08:50) unknown Is last menstrual period known: No Post menopausal: Yes Patient : No Have you fallen in the past year?: No Nurse's Note: bilateral ears plugged, right ear pain x 2 weeks. seen here for same in May, given Azithromycin x 3 tabs. pt states s/s did not go away and are worse now. denies fever, cough, congestion PFSH Medical History Anemia Arthritis Diarrhea Fatigue Frequent headaches Hemorrhoids Hypertension Knee pain Shoulder pain stomach ulcers Social History Smoking Status: Never smoker alcohol intake: never HPI HPI Chief Complaint: bilat ears Details: IVAN MARTINES, is a 74 F who presents to the office today for complaint of congestion to both ears. Patient states that her right ear is more painful and believes that she has small bumps in her right ear canal. She denies otorrhea however has had some hearing loss stating that it feels like she is underwater. She has had no fever, chills or sweats. No other associated symptoms or alleviating/aggrava ting factors. ROS Const Constitutional: Positive for other (ROS negative x6 except what was placed in HPI) Exam Const General: cooperative and well developed HENMT Head: normal to inspection and atraumatic Ears: hearing grossly normal bilaterally and TM abnormal bulging bilaterally and with fluid behind the TM bilaterally Nose: nasal discharge clear Face and sinus: normal facial exam Mouth: oral mucosae normal Resp Effort Inspection: normal respiratory effort Cardio Rate: regular rate Neuro General: patient alert Psych Appearance: grossly normal Mental Status: mental status grossly normal Coding Level of Care Code Off vis,est,level 3 Diagnoses Dysfunction of both eustachian tubes H69.93 Acute otitis media, unspecified otitis media type H66.90 Otitis media type: unspecified Chronicity: acute Assessment and Plan Assessment and Plan (1) Dysfunction of both eustachian tubes: Status: Acute (2) Otitis media: Status: Acute Qualifiers: Otitis media type: unspecified Chronicity: acute Qualified Code(s): H66.90 - Otitis media, unspecified, unspecified ear Medications: New ipratropium bromide administer into each nostril 2 sprays intranasal BID-TID PRN 30 mL 0RF postnasal drainage cetirizine (Zyrtec) 10 mg PO QDAY PRN 30 tabs 3RF allergy symptoms cephalexin 500 mg PO Q12H 10 days 20 caps 0RF mupirocin calcium 2% 1 applic topical BID 15 grams 0RF Plan Atrovent, Zyrtec, Keflex and mupirocin as prescribed today. Encouraged to get plenty of rest, drink lots of clear liquids, and use Tylenol or Ibuprofen (unless contraindicated) for fever and comfort. Patient also educated on other symptomatic management techniques. To be seen in 7-10 days if no improvement; sooner if worsening of symptoms. Patient advised of potential red flags and when appropriate to report to the ED. Patient verbalized understanding and agreement with all the above. Clinical Quality Measures Falls Risk Screening/Assistive Devices Have you fallen in the past year?: No 08/11/24 1144 Date Jas Lennoner Signature: Date (if applicable) CC: Normal [facility] .Auto Diffon 07-10-2024 Basophil, Absolute 0.0 10 3/mcL Normal 0.0-0.2 [facility] Comment on above: Performed By: #### A HELADIO, VIDH, ADIFF, CMP, CBC, GFR, FERR, FE #### [address] [address] #### B12 #### [address] [address] Basophils/100 WBC (Bld) 0.3 % Normal 0.0-2.5 [facility] Comment on above: Performed By: #### A HELADIO, VIDH, ADIFF, CMP, CBC, GFR, FERR, FE #### [address] [address] #### B12 #### [address] [address] Eosinophil, Absolute 0.1 10 3/mcL Normal 0.0-0.7 [facility] Comment on above: Performed By: #### A HELADIO, VIDH, ADIFF, CMP, CBC, GFR, FERR, FE #### [address] [address] #### B12 #### [address] [address] Eosinophils/100 WBC (Bld) 1.1 % Normal 0.0-7.0 [facility] Comment on above: Performed By: #### A HELADIO, VIDH, ADIFF, CMP, CBC, GFR, FERR, FE #### [place] [address] #### B12 #### [address] [address] Lymphocyte, Absolute 2.0 10 3/mcL Normal 0.9-4.3 [facility] Comment on above: Performed By: #### A HELADIO, VIDH, ADIFF, CMP, CBC, GFR, FERR, FE #### [place] [address] #### B12 #### [address] [address] Lymphocytes/100 WBC (Bld) 37.1 % Normal 20.0-40.0 [facility] Comment on above: Performed By: #### A HELADIO, VIDH, ADIFF, CMP, CBC, GFR, FERR, FE #### [place] [address] #### B12 #### [address] [address] Monocyte, Absolute 0.3 10 3/mcL Normal 0.1-1.4 [facility] Comment on above: Performed By: #### A HELADIO, VIDH, ADIFF, CMP, CBC, GFR, FERR, FE #### [place] [address] #### B12 #### [address] [address] Monocytes/100 WBC (Bld) 5.6 % Normal 2.0-13.0 [facility] Comment on above: Performed By: #### A HELADIO, VIDH, ADIFF, CMP, CBC, GFR, FERR, FE #### [place] [address] #### B12 #### [address] [address] Neutrophils/100 WBC (Bld) 55.9 % Normal 50.0-75.0 [facility] Comment on above: Performed By: #### A HELADIO, VIDH, ADIFF, CMP, CBC, GFR, FERR, FE #### [address] [address] #### B12 #### [address] [address] .GFRon 07-10-2024 Estimated Glomerular Filtration Rate 87 ml/min/1.73sqm Normal [facility] Comment on above: Result Comment: Stages of Chronic Kidney Disease (CKD) Stage Description eGFR(ml/min/1.73 sq.m.) CKD 1 Normal kidney function or >=90 normal kindney function with possible kidney damage (ex. Proteinuria) CKD 2 Kidney damage with mild loss 60-89 of kidney function CKD 3a Mild to moderate loss of kidney 45-59 function CKD 3b Moderate to severe loss of 30-44 of kindey function CKD 4 Severe loss of kidney function 15-29 CKD 5 Kidney failure <15 Note: (go live 2024) the eGFR calculation was updated to the 2020 CKD-EPI creatinine equation without a race factor to calculate the eGFR results. Performed By: #### A HELADIO, VIDH, ADIFF, CMP, CBC, GFR, FERR, FE #### [place] [id number] #### B12 #### [address] [address] .NEUABSon 07-10-2024 Neutrophil, Absolute 2.9 10 3/mcL Normal 2.3-8.1 [facility] Comment on above: Performed By: #### A HELADIO, VIDH, ADIFF, CMP, CBC, GFR, FERR, FE #### [address] [address] #### B12 #### [address] [address] B12on 07-10-2024 Cobalamin (Vitamin B12) [Mass/Vol] 1645 pg/mL High 211-911 [facility] Comment on above: Performed By: #### A HELADIO, VIDH, ADIFF, CMP, CBC, GFR, FERR, FE #### [place] [id number] #### B12 #### [address] [address] CBCon 07-10-2024 Erythrocyte distribution width (RBC) [Ratio] 14.6 % Normal 11.5-15.5 [facility] Comment on above: Performed By: #### A HELADIO, VIDH, ADIFF, CMP, CBC, GFR, FERR, FE #### [place] [address] #### B12 #### [place] [address] Hematocrit (Bld) [Volume fraction] 40.6 % Normal 34.0-46.0 [facility] Comment on above: Performed By: #### A HELADIO, VIDH, ADIFF, CMP, CBC, GFR, FERR, FE #### [place] [address] #### B12 #### [place] [address] Hgb 13.4 G/dL Normal 12.0-16.0 [facility] Comment on above: Performed By: #### A HELADIO, VIDH, ADIFF, CMP, CBC, GFR, FERR, FE #### [place] [address] #### B12 #### [place] [address] MCH (RBC) [Entitic mass] 30.8 pg Normal 27.0-33.0 [facility] Comment on above: Performed By: #### A HELADIO, VIDH, ADIFF, CMP, CBC, GFR, FERR, FE #### [place] [address] #### B12 #### [place] [address] MCHC 33.0 G/dL Normal 32.0-36.0 [facility] Comment on above: Performed By: #### A HELADIO, VIDH, ADIFF, CMP, CBC, GFR, FERR, FE #### [place] [address] #### B12 #### [place] [address] MCV (RBC) [Entitic vol] 93.3 fL Normal 80.0-99.0 [facility] Comment on above: Performed By: #### A HELADIO, VIDH, ADIFF, CMP, CBC, GFR, FERR, FE #### [place] [address] #### B12 #### [place] [address] Platelet 144 10 3/mcL Low 150-450 [facility] Comment on above: Performed By: #### A HELADIO, VIDH, ADIFF, CMP, CBC, GFR, FERR, FE #### [place] [address] #### B12 #### [place] [address] Platelet mean volume (Bld) [Entitic vol] 10.2 fL Normal 6.6-10.5 [facility] Comment on above: Performed By: #### A HELADIO, VIDH, ADIFF, CMP, CBC, GFR, FERR, FE #### [place] [address] #### B12 #### [place] [address] RBC 4.35 10 6/mcL Normal 4.10-5.30 [facility] Comment on above: Performed By: #### A HELADIO, VIDH, ADIFF, CMP, CBC, GFR, FERR, FE #### [place] [address] #### B12 #### [place] [address] WBC 5.3 10 3/mcL Normal 4.5-10.8 [facility] Comment on above: Performed By: #### A HELADIO, VIDH, ADIFF, CMP, CBC, GFR, FERR, FE #### [place] [address] #### B12 #### [address] [address] CMPon 07-10-2024 Albumin Level 3.3 G/dL Low 3.4-4.8 [facility] Comment on above: Performed By: #### A HELADIO, VIDH, ADIFF, CMP, CBC, GFR, FERR, FE #### [address] [address] #### B12 #### [place] [address] Albumin/Globulin [Mass ratio] 1.2 {ratio} Normal 1.1-2.5 [facility] Comment on above: Performed By: #### A HELADIO, VIDH, ADIFF, CMP, CBC, GFR, FERR, FE #### [address] [address] #### B12 #### [place] [address] ALP [Catalytic activity/Vol] 93 U/L Normal 40-135 [facility] Comment on above: Performed By: #### A HELADIO, VIDH, ADIFF, CMP, CBC, GFR, FERR, FE #### [place] [address] #### B12 #### [address] [address] ALT [Catalytic activity/Vol] 18 U/L Normal 14-59 [facility] Comment on above: Performed By: #### A HELADIO, VIDH, ADIFF, CMP, CBC, GFR, FERR, FE #### [address] [address] #### B12 #### [place] [id number] AST [Catalytic activity/Vol] 17 U/L Normal 10-40 [facility] Comment on above: Performed By: #### A HELADIO, VIDH, ADIFF, CMP, CBC, GFR, FERR, FE #### [place] [address] #### B12 #### [address] [address] Bili Total 0.6 mg/dL Normal 0.2-1.0 [facility] Comment on above: Result Comment: Use of this assay is not recommended for patients undergoing treatment with eltrombopag due to the potential for falsely elevated results. Performed By: #### A HELADIO, VIDH, ADIFF, CMP, CBC, GFR, FERR, FE #### [place] [address] #### B12 #### [address] [address] BUN/Creatinine Ratio 18 ratio Normal 7-27 [facility] Comment on above: Performed By: #### A HELADIO, VIDH, ADIFF, CMP, CBC, GFR, FERR, FE #### [place] [address] #### B12 #### [address] [address] Calcium [Mass/Vol] 9.9 mg/dL Normal 8.4-10.2 [facility] Comment on above: Performed By: #### A HELADIO, VIDH, ADIFF, CMP, CBC, GFR, FERR, FE #### [place] [address] #### B12 #### [address] [address] Chloride [Moles/Vol] 108 mmol/L High 98-107 [facility] Comment on above: Performed By: #### A HELADIO, VIDH, ADIFF, CMP, CBC, GFR, FERR, FE #### [place] [address] #### B12 #### [address] [address] CO2 [Moles/Vol] 27 mmol/L Normal 23-31 [facility] Comment on above: Performed By: #### A HELADIO, VIDH, ADIFF, CMP, CBC, GFR, FERR, FE #### [place] [address] #### B12 #### [place] [address] Creatinine [Mass/Vol] 0.72 mg/dL Normal 0.55-1.02 [facility] Comment on above: Result Comment: Test ing performed on Siemens Dimension EXL analyzer using a modified kinetic Ino technique. Performed By: #### A HELADIO, VIDH, ADIFF, CMP, CBC, GFR, FERR, FE #### [place] [address] #### B12 #### [place] [address] Electrolyte Balance 8.0 mEq/L Normal 4.0-15.0 [facility] Comment on above: Performed By: #### A HELADIO, VIDH, ADIFF, CMP, CBC, GFR, FERR, FE #### [place] [address] #### B12 #### [place] [address] Globulin 2.7 G/dL Normal 1.5-3.8 [facility] Comment on above: Performed By: #### A HELADIO, VIDH, ADIFF, CMP, CBC, GFR, FERR, FE #### [place] [address] #### B12 #### [place] [address] Glucose [Mass/Vol] 176 mg/dL High 83-110 [facility] Comment on above: Performed By: #### A HELADIO, VIDH, ADIFF, CMP, CBC, GFR, FERR, FE #### [place] [address] #### B12 #### [place] [address] Potassium [Moles/Vol] 4.4 mmol/L Normal 3.5-5.1 [facility] Comment on above: Performed By: #### A HELADIO, VIDH, ADIFF, CMP, CBC, GFR, FERR, FE #### [place] [address] #### B12 #### [address] [address] Sodium [Moles/Vol] 143 mmol/L Normal 136-145 [facility] Comment on above: Performed By: #### A HELADIO, VIDH, ADIFF, CMP, CBC, GFR, FERR, FE #### [place] [address] #### B12 #### [place] [address] Total Protein 6.0 G/dL Low 6.4-8.2 [facility] Comment on above: Performed By: #### A HELADIO, VIDH, ADIFF, CMP, CBC, GFR, FERR, FE #### [place] [address] #### B12 #### [place] [address] Urea nitrogen [Mass/Vol] 13 mg/dL Normal 7-18 [facility] Comment on above: Performed By: #### A HELADIO, VIDH, ADIFF, CMP, CBC, GFR, FERR, FE #### [place] [address] #### B12 #### [place] [address] FEon 07-10-2024 Iron [Mass/Vol] 70 ug/dL Normal 50-170 [facility] Comment on above: Performed By: #### A HELADIO, VIDH, ADIFF, CMP, CBC, GFR, FERR, FE #### [place] [address] #### B12 #### [place] [address] Travis 07-10-2024 Ferritin [Mass/Vol] 52.0 ng/mL Normal 8.0-252.0 [facility] Comment on above: Performed By: #### A HELADIO, VIDH, ADIFF, CMP, CBC, GFR, FERR, FE #### [place] [address] #### B12 #### [address] [address] VIDHon 07-10-2024 Vit. D 25-Hydroxy 69.5 ng/mL Normal [facility] Comment on above: Result Comment: Inte rpretive Values Based on Total 25(OH) Vitamin D: Deficient <20 ng/mL Insufficient 20 - <30 ng/mL Sufficient 30-100 ng/mL Performed By: #### A HELADIO, VIDH, ADIFF, CMP, CBC, GFR, FERR, FE #### [facility] [address] [place], [place] [address] #### B12 #### [address] [address] Urgent Care Visit Reporton 0 06-03-2024 Urgent Care Visit Report [facility] [address], [address] [place] [address] OFFICE VISIT Date of Service: 06/03/24 MR#: [id number] Acct: [id number] Name: IVAN MARTINES Rep #: [id number] : 1950 Provider: JAMES Cross Age/Sex: 74/F Location: [facility] Status: Signed Intake Vital Signs 03/20/23 10:45 06/03/24 09:39 06/03/24 09:55 Height 5 ft 3 in 5 ft 3 in BP 128/76 H Blood Pressure Location Lt brachial Position Sitting Respiration 12 Pulse 71 Pulse Source NIBP Temp 97.4 F L Temp Source Oral Pulse Oximetry (%) 94 Oxygen Delivery Method room air Intake Visit Reasons: BUMPS INSIDE EAR/DIZZY Allergies Penicillins Allergy (Intermediate, Verified 06/03/24 10:02) Hives Sulfa (Sulfonamide Antibiotics) Allergy (Intermediate, Verified 06/03/24 10:02) hives adhesive tape Allergy (Mild, Verified 06/03/24 10:02) unknown Medications ???Medication ???Instructions ???Recorded ???Confirmed ???Type celecoxib 200 mg capsule (Celebrex) 200 mg PO QDAY 08/08/1703/20/ 3 History conjugated estrogens 0.3 mg tablet PO 08/08/17 03/20/23 History (Premarin) doxazosin 4 mg tablet 4 mg PO QDAY 08/08/17 03/20/23 His tory lactobacillus combination no.8 3 3,000 mmu cells PO QDAY 08/08/17 1 05/21/22 History billion cell capsule (Adult Probiotic) omeprazole magnesium 2.5 mg oral 10 mg PO QDAY 08/08/17 03/20/23 Hi story suspension,delayed release (Prilosec) fluticasone propionate 50 2 spray intranasal DAILY #9.9 gram s 01/09/18 03/20/23 Rx mcg/actuation nasal spray,suspension (Flonase Allergy Relief) furosemide 20 mg tablet (Lasix) 20 mg PO BID #10 tabs 03/20/23 Rx azithromycin 500 mg tablet 500 mg PO QDAY 3 days #3 tabs 05/2006/03/24 Rx Have you fallen in the past year?: No PFSH Medical History Anemia Arthritis Diarrhea Fatigue Frequent headaches Hemorrhoids Hypertension Knee pain Shoulder pain stomach ulcers Social History Smoking Status: Never smoker alcohol intake: never HPI HPI Details: IVAN MARTINES, is a 74 F who presents to the office today for bumps in right ear and dizziness for 2 weeks. -present for 2 wks or long -states there are 3 pimple like lesions in her ear -no drainage -right ear- no ear pain -no recent air travel or swimming, no fever or chills -feels a little dizzy- comes and goes- chronic problem but more so now with the ear sx- denies she is spinning or room spining- feels off balance -not enough fluids -no recent uri- states 2wks ago was fighting something off -denies cp, palpitation or sob -denies any loss or change in hearing ROS Const Constitutional: Positive for other (ROS negative x6 except what was placed in HPI) Exam Const General: cooperative, comfortable and no acute distress Orientation: alert, awake and oriented x3 HENMT Head: normal to inspection and normocephalic Ears: hearing grossly normal bilaterally, external ears normal, TM normal on the left and TM abnormal bulging on the right Nose: external nose normal, nares normal, nasal mucous membranes and turbinates normal and other (+ congestion and rhinorr) Face and sinus: normal facial exam, sinuses nontender and face symmetric Mouth: oral mucosae normal, lip normal, tongue normal, oropharynx normal and moist mucous membranes Throat: posterior oropharynx normal, tonsils normal and uvula midline Other: -right at the entrance to the internal canal two small flesh colored pin point bumps- no redness, swelling or drainage Neck Neck: normal visual inspection, full ROM and no lymphadenopathy Resp Effort Inspection: normal respiratory effort, able to speak in complete sentences and symmetric chest movement Auscultation: Bilateral: Clear to Auscultation, Left: Clear to Auscultation and Right: Clear to Auscultation Cardio Rate: regular rate Rhythm: regular rhythm Heart Sounds: S1 normal and S2 normal GI Auscultation: normal bowel sounds Palpation: soft Skin General: no rashes or lesions noted and turgor normal Neuro General: patient alert, patient awake and patient oriented x3 Cognition: normal cognition Speech: speech normal Psych Appearance: grossly normal Mental Status: mental status grossly normal Attitude: cooperative Thought Process: normal Thought Content: normal Coding Level of Care Code Off vis,est,level 3 Diagnoses Acute otitis media, unspecified otitis media type H66.90 Otitis media type: unspecified Chronicity: acute Assessment and Plan Assessment and Plan (1) Otitis media: Status: Acute Qualifiers: Otitis media type: unspecified Chronicity: acute Qualified Code(s): H66.90 - Otitis m (more content not included)... Normal [facility] .Auto Diffon 12-18-2023 Basophil, Absolute 0.0 10 3/mcL Normal 0.0-0.2 [facility] ([place]) Comment on above: Performed By: #### C FRANK ELAM, ANEU, FERR, FE #### [place] [id number] [place], [place] [address] Basophils/100 WBC (Bld) 0.4 % Normal 0.0-2.5 [facility] ([place]) Comment on above: Performed By: #### C FRANK ELAM, ANEU, FERR, FE #### [place] [id number] [place], [place] [address] Eosinophil, Absolute 0.1 10 3/mcL Normal 0.0-0.4 [facility] ([place]) Comment on above: Performed By: #### C BC, ADIFF, ANEU, FERR, FE #### [address] [address] Eosinophils/100 WBC (Bld) 1.4 % Normal 0.0-7.0 [facility] ([place]) Comment on above: Performed By: #### C BC, ADIFF, ANEU, FERR, FE #### [address] [address] Lymphocyte, Absolute 2.2 10 3/mcL Normal 0.8-3.9 [facility] ([place]) Comment on above: Performed By: #### C BC, ADIFF, ANEU, FERR, FE #### [address] [address] Lymphocytes/100 WBC (Bld) 34.2 % Normal 10.0-50.0 [facility] ([place]) Comment on above: Performed By: #### C BC, ADIFF, ANEU, FERR, FE #### [address] [address] Monocyte, Absolute 0.4 10 3/mcL Normal 0.2-1.0 [facility] ([place] Comment on above: Performed By: #### C BC, ADIFF, ANEU, FERR, FE #### [address] [address] Monocytes/100 WBC (Bld) 6.8 % Normal 1.7-13.0 [facility] ([place]) Comment on above: Performed By: #### C BC, ADIFF, ANEU, FERR, FE #### [address] [address] Neutrophils/100 WBC (Bld) 57.2 % Normal 37.0-80.0 [facility] ([place]) Comment on above: Performed By: #### C BC, ADIFF, ANEU, FERR, FE #### [address] [address] .NEUABSon 12-18-2023 Neutrophil, Absolute 3.7 10 3/mcL Normal 2.9-6.2 [facility] ([place]) Comment on above: Performed By: #### C BC ADIFF, ANEU, FERR, FE #### [address] [address] CBCon 12-18-2023 Erythrocyte distribution width (RBC) [Ratio] 14.7 % High 11.5-14.5 [facility] ([place]) Comment on above: Performed By: #### C BC, ADIFF, ANEU, FERR, FE #### [place] [address] Hematocrit (Bld) [Volume fraction] 40.9 % Normal 37.0-47.0 [facility] ([place]) Comment on above: Performed By: #### C BC ADIFF, ANEU, FERR, FE #### [place] [address] Hgb 13.5 G/dL Normal 12.0-16.0 [facility] ([place]) Comment on above: Performed By: #### C BC ADIFF, ANEU, FERR, FE #### [place] [address] MCH (RBC) [Entitic mass] 31.0 pg Normal 27.0-31.2 [facility] ([place]) Comment on above: Performed By: #### C BC, ADIFF, ANEU, FERR, FE #### [place] [address] MCHC 33.0 G/dL Normal 33.0-37.0 [facility] ([place]) Comment on above: Performed By: #### C BC, ADIFF, ANEU, FERR, FE #### [place] [id number] MCV (RBC) [Entitic vol] 94.1 fL High 80.0-94.0 [facility] ([place]) Comment on above: Performed By: #### C BC, ADIFF, ANEU, FERR, FE #### [place] [address] Platelet 137 10 3/mcL Normal 130-400 [facility] ([place]) Comment on above: Performed By: #### C BC, ADIFF, ANEU, FERR, FE #### [place] [address] Platelet mean volume (Bld) [Entitic vol] 9.8 fL Normal 7.4-10.4 [facility] ([place]) Comment on above: Performed By: #### C BC, ADIFF, ANEU, FERR, FE #### [place] [address] RBC 4.34 10 6/mcL Normal 4.20-5.40 [facility] ([place]) Comment on above: Performed By: #### C BC, ADIFF, ANEU, FERR, FE #### [place] [address] WBC 6.5 10 3/mcL Normal 4.6-10.8 [facility] ([place]) Comment on above: Performed By: #### C BC, ADIFF, ANEU, FERR, FE #### [place] [address] FEon 12-18-2023 Iron [Mass/Vol] 93 ug/dL Normal 50-170 [facility] ([place]) Comment on above: Performed By: #### C BC, ADIFF, ANEU, FERR, FE #### [place] [address] Travis 12-18-2023 Ferritin [Mass/Vol] 25.0 ng/mL Normal 8.0-252.0 [facility] ([place]) Comment on above: Performed By: #### C BC, ADIFF, ANEU, FERR, FE #### [place] [address] LABORATORYOrdered By: SYSTEM SYSTEM on 12-18-2023 Basophil, Absolute 0.0 103/mcL Normal 0.0 - 0.2 10^3/mcL AO Workflow SS Basophils/100 WBC (Bld) 0.4 % Normal 0.0 - 2.5 % AO Workflow SS Eosinophil, Absolute 0.1 103/mcL Normal 0.0 - 0 .4 10^3/mcL AO Workflow SS Eosinophils/100 WBC (Bld) 1.4 % Normal 0.0 - 7.0 % AO Workflow SS Erythrocyte distribution width (RBC) [Ratio] 14.7 % High 11.5 - 14.5 % AO Workflow SS Ferritin [Mass/Vol] 25.0 ng/mL Normal 8.0 - 25 2.0 ng/mL AO ADM SS Hematocrit (Bld) [Volume fraction] 40.9 % Normal 37.0 - 47.0 % AO Workflow SS Hemoglobin (Bld) [Mass/Vol] 13.5 G/dL Normal 12.0 - 16.0 G/dL AO Workflow SS Iron [Mass/Vol] 93 ug/dL Normal 50 - 170 mcg/dL AO ADM SS Lymphocyte, Absolute 2.2 103/mcL Normal 0.8 - 3 .9 10^3/mcL AO Workflow SS Lymphocytes/100 WBC (Bld) 34.2 % Normal 10.0 - 50.0 % AO Workflow SS MCH (RBC) [Entitic mass] 31.0 pg Normal 27. 0 - 31.2 pg AO Workflow SS MCHC 33.0 G/dL Normal 33.0 - 37.0 G/dL AO Workflow SS MCV (RBC) [Entitic vol] 94.1 fL High 80.0 - 94.0 fL AO Workflow SS Monocyte, Absolute 0.4 103/mcL Normal 0.2 - 1.0 10^3/mcL AO Workflow SS Monocytes/100 WBC (Bld) 6.8 % Normal 1.7 - 13.0 % AO Workflow SS Neutrophil, Absolute 3.7 103/mcL Normal 2.9 - 6 .2 10^3/mcL AO Workflow SS Neutrophils/100 WBC (Bld) 57.2 % Normal 37.0 - 80.0 % AO Workflow SS Platelet mean volume (Bld) [Entitic vol] 9.8 fL Normal 7.4 - 10.4 fL AO Workflow SS Platelets (Bld) [#/Vol] 137 103/mcL Normal 130 - 400 10^3/mcL AO Workflow SS RBC (Bld) [#/Vol] 4.34 106/mcL Normal 4.20 - 5.4 0 10^6/mcL AO Workflow SS WBC (Bld) [#/Vol] 6.5 103/mcL Normal 4.6 - 10.8 10^3/mcL AO Workflow SS .Auto Diffon 06-10-2023 Basophil, Absolute 0.0 10 3/mcL Normal 0.0-0.2 [facility] ([place]) Comment on above: Performed By: #### F ERR, FE, MORPH, CBC, ADIFF, ANEU #### [address] [address] Basophils/100 WBC (Bld) 0.6 % Normal 0.0-2.5 [facility] ([place]) Comment on above: Performed By: #### F ERR, FE, MORPH, CBC, ADIFF, ANEU #### [address] [address] Eosinophil, Absolute 0.0 10 3/mcL Normal 0.0-0.4 [facility] ([place]) Comment on above: Performed By: #### F ERR, FE, MORPH, CBC, ADIFF, ANEU #### [address] [address] Eosinophils/100 WBC (Bld) 0.7 % Normal 0.0-7.0 [facility] ([place]) Comment on above: Performed By: #### F ERR, FE, MORPH, CBC, ADIFF, ANEU #### [address] [address] Lymphocyte, Absolute 1.7 10 3/mcL Normal 0.8-3.9 [facility] ([place]) Comment on above: Performed By: #### F ERR, FE, MORPH, CBC, ADIFF, ANEU #### [address] [address] Lymphocytes/100 WBC (Bld) 32.3 % Normal 10.0-50.0 [facility] ([place]) Comment on above: Performed By: #### F ERR, FE, MORPH, CBC, ADIFF, ANEU #### [address] [address] Monocyte, Absolute 0.4 10 3/mcL Normal 0.2-1.0 [facility] ([place]) Comment on above: Performed By: #### F ERR, FE, MORPH, CBC, ADIFF, ANEU #### [address] [address] Monocytes/100 WBC (Bld) 7.3 % Normal 1.7-13.0 [facility] ([place]) Comment on above: Performed By: #### F ERR, FE, MORPH, CBC, ADIFF, ANEU #### [address] [address] Neutrophils/100 WBC (Bld) 59.1 % Normal 37.0-80.0 [facility] ([place]) Comment on above: Performed By: #### F ERR, FE, MORPH, CBC, ADIFF, ANEU #### [address] [address] .Morphon 06-10-2023 Anisocytosis Ql (Bld) 1+ Normal [facility] ([place]) Comment on above: Performed By: #### F ERR, FE, MORPH, CBC, ADIFF, ANEU #### [place] [address] Platelet Estimate Normal Normal [facility] ([place]) Comment on above: Performed By: #### F ERR, FE, MORPH, CBC, ADIFF, ANEU #### [address] [address] Rouleaux 1+ Normal [facility] ([place]) Comment on above: Performed By: #### F ERR, FE, MORPH, CBC, ADIFF, ANEU #### [place] [address] .NEUABSon 06-10-2023 Neutrophil, Absolute 3.2 10 3/mcL Normal 2.9-6.2 [facility] ([place]) Comment on above: Performed By: #### C BC, ADIFF, ANEU, FERR, FE #### [place] [address] CBCon 06-10-2023 Erythrocyte distribution width (RBC) [Ratio] 25.0 % High 11.5-14.5 [facility] ([place]) Comment on above: Performed By: #### F ERR, FE, MORPH, CBC, ADIFF, ANEU #### [address] [address] Hematocrit (Bld) [Volume fraction] 32.0 % Low 37.0-47.0 [facility] ([place]) Comment on above: Performed By: #### F ERR, FE, MORPH, CBC, ADIFF, ANEU #### [address] [address] Hgb 10.1 G/dL Low 12.0-16.0 [facility] ([place]) Comment on above: Performed By: #### F ERR, FE, MORPH, CBC, ADIFF, ANEU #### [address] [address] MCH (RBC) [Entitic mass] 23.8 pg Low 27.0-31.2 [facility] ([place]) Comment on above: Performed By: #### F ERR, FE, MORPH, CBC, ADIFF, ANEU #### [place] [address] MCHC 31.6 G/dL Low 33.0-37.0 [facility] ([place]) Comment on above: Performed By: #### F ERR, FE, MORPH, CBC, ADIFF, ANEU #### [place] [address] MCV (RBC) [Entitic vol] 75.5 fL Low 80.0-94.0 [facility] ([place]) Comment on above: Performed By: #### F ERR, FE, MORPH, CBC, ADIFF, ANEU #### [address] [address] Platelet 175 10 3/mcL Normal 130-400 Formerly [facility] ([place]) Comment on above: Performed By: #### F ERR, FE, MORPH, CBC, ADIFF, ANEU #### [address] [address] Platelet mean volume (Bld) [Entitic vol] 10.0 fL Normal 7.4-10.4 [facility] ([place]) Comment on above: Performed By: #### F ERR, FE, MORPH, CBC, ADIFF, ANEU #### [address] [address] RBC 4.24 10 6/mcL Normal 4.20-5.40 [facility] ([place]) Comment on above: Performed By: #### F ERR, FE, MORPH, CBC, ADIFF, ANEU #### [address] [address] WBC 5.3 10 3/mcL Normal 4.6-10.8 [facility] ([place] Comment on above: Performed By: #### F ERR, FE, MORPH, CBC, ADIFF, ANEU #### [address] [address] FEon 06-10-2023 Iron [Mass/Vol] 26 ug/dL Low 50-170 [facility] ([place]) Comment on above: Performed By: #### F ERR, FE, MORPH, CBC, ADIFF, ANEU #### [address] [address] Travis 06-10-2023 Ferritin [Mass/Vol] 9.0 ng/mL Normal 8.0-252.0 [facility] ([place]) Comment on above: Performed By: #### F ERR, FE, MORPH, CBC, ADIFF, ANEU #### [address] [address] .Auto Diffon 05-10-2023 Basophil, Absolute 0.0 10 3/mcL Normal 0.0-0.2 [facility]ly [facility], later [facility] ([place] Comment on above: Performed By: #### C BC, ADIFF, ANEU, FERR, FE #### [address] [address] Basophils/100 WBC (Bld) 0.8 % Normal 0.0-2.5 [facility] ([place]) Comment on above: Performed By: #### C BC, ADIFF, ANEU, FERR, FE #### [address] [address] Eosinophil, Absolute 0.1 10 3/mcL Normal 0.0-0.4 [facility]ly [facility] ([place]) Comment on above: Performed By: #### C BC, ADIFF, ANEU, FERR, FE #### [address] [address] Eosinophils/100 WBC (Bld) 1.3 % Normal 0.0-7.0 [facility] ([place] Comment on above: Performed By: #### C BC, ADIFF, ANEU, FERR, FE #### [address] [address] Lymphocyte, Absolute 2.3 10 3/mcL Normal 0.8-3.9 [facility] ([place] Comment on above: Performed By: #### C BC, ADIFF, ANEU, FERR, FE #### [address] [address] Lymphocytes/100 WBC (Bld) 38.7 % Normal 10.0-50.0 [facility] ([place] Comment on above: Performed By: #### C BC, ADIFF, ANEU, FERR, FE #### [address] [address] Monocyte, Absolute 0.4 10 3/mcL Normal 0.2-1.0 [facility] ([place] Comment on above: Performed By: #### C BC, ADIFF, ANEU, FERR, FE #### [address] [address] Monocytes/100 WBC (Bld) 6.6 % Normal 1.7-13.0 [facility] ([place]) Comment on above: Performed By: #### C BC, ADIFF, ANEU, FERR, FE #### [address] [address] Neutrophils/100 WBC (Bld) 52.6 % Normal 37.0-80.0 [facility] ([place]) Comment on above: Performed By: #### C BC, ADIFF, ANEU, FERR, FE #### [address] [address] .GFRon 05-10-2023 GFR 97 ml/min/1.73sqm Normal [facility] ([place]) Comment on above: Result Comment: GFR Population mean for , Non- Americans Ages 20-29 = 116 mL/min/1.73 sq.m. Ages 30-39 = 107 mL/min/1.73 sq.m. Ages 40-49 = 99 mL/min/1.73 sq.m. Ages 50-59 = 93 mL/min/1.73 sq.m. Ages 60-69 = 85 mL/min/1.73 sq.m. Ages 70+ = 75 mL/min/1.73 sq.m. Chronic Kidney Disease: Less than 60 mL/min/1.73 square meters End Stage Renal Disease: Less than 15 mL/min/1.73 square meters Performed By: #### C FRANK ELAM ANEU, FERR, FE #### [address] [address] GFR Non- 80 ml/min/1.73sqm Normal [facility] ([place]) Comment on above: Result Comment: GFR Population mean for , Non- Americans Ages 20-29 = 116 mL/min/1.73 sq.m. Ages 30-39 = 107 mL/min/1.73 sq.m. Ages 40-49 = 99 mL/min/1.73 sq.m. Ages 50-59 = 93 mL/min/1.73 sq.m. Ages 60-69 = 85 mL/min/1.73 sq.m. Ages 70+ = 75 mL/min/1.73 sq.m. Chronic Kidney Disease: Less than 60 mL/min/1.73 square meters End Stage Renal Disease: Less than 15 mL/min/1.73 square meters Performed By: #### C FRANK ELAM ANEU, FERR, FE #### [address] [address] .Morphon 05-10-2023 Platelet Estimate Normal Normal [facility] ([place]) Comment on above: Performed By: #### C FRANK ELAM ANEU, FERR, FE #### [address] [address] .NEUABSon 05-10-2023 Neutrophil, Absolute 3.1 10 3/mcL Normal 2.9-6.2 [facility] ([place]) Comment on above: Performed By: #### C BC, ADIFF, ANEU, FERR, FE #### [address] [address] BMPon 05-10-2023 BUN/Creatinine Ratio 14 ratio Normal 7-27 [facility] ([place] Comment on above: Performed By: #### C BC, ADIFF, ANEU, FERR, FE #### [place] [address] Calcium [Mass/Vol] 10.3 mg/dL High 8.4-10.2 [facility] ([place]) Comment on above: Performed By: #### C BC, ADIFF, ANEU, FERR, FE #### [place] [address] Chloride [Moles/Vol] 109 mmol/L High 98-107 [facility] ([place] Comment on above: Performed By: #### C BC, ADIFF, ANEU, FERR, FE #### [place] [address] CO2 [Moles/Vol] 27 mmol/L Normal 23-31 [facility] ([place]) Comment on above: Performed By: #### C BC, ADIFF, ANEU, FERR, FE #### [place] [address] Creatinine [Mass/Vol] 0.71 mg/dL Normal 0.55-1.02 [facility] ([place]) Comment on above: Performed By: #### C BC, ADIFF, ANEU, FERR, FE #### [place] [id number] Electrolyte Balance 9.0 mEq/L Normal 4.0-15.0 [facility] ([place]) Comment on above: Performed By: #### C BC, ADIFF, ANEU, FERR, FE #### [place] [address] Glucose [Mass/Vol] 107 mg/dL Normal 83-110 [facility] ([place]) Comment on above: Performed By: #### C BC, ADIFF, ANEU, FERR, FE #### [address] [address] Potassium [Moles/Vol] 4.5 mmol/L Normal 3.5-5.1 [facility] ([place]) Comment on above: Performed By: #### C BC, ADIFF, ANEU, FERR, FE #### [address] [address] Sodium [Moles/Vol] 145 mmol/L Normal 136-145 [facility] ([place]) Comment on above: Performed By: #### C BC, ADIFF, ANEU, FERR, FE #### [place] [address] Urea nitrogen [Mass/Vol] 10 mg/dL Normal 7-18 [facility] ([place]) Comment on above: Performed By: #### C BC, ADIFF, ANEU, FERR, FE #### [address] [address] CBCon 05-10-2023 Erythrocyte distribution width (RBC) [Ratio] 20.1 % High 11.5-14.5 [facility] ([place]) Comment on above: Performed By: #### C BC, ADIFF, ANEU, FERR, FE #### [place] [address] Hematocrit (Bld) [Volume fraction] 28.2 % Low 37.0-47.0 [facility] ([place]) Comment on above: Performed By: #### C BC, ADIFF, ANEU, FERR, FE #### [place] [address] Hgb 8.8 G/dL Low 12.0-16.0 [facility] ([place]) Comment on above: Performed By: #### C BC, ADIFF, ANEU, FERR, FE #### [place] [address] MCH (RBC) [Entitic mass] 21.7 pg Low 27.0-31.2 [facility] ([place]) Comment on above: Performed By: #### C BC, ADIFF, ANEU, FERR, FE #### [address] [address] MCHC 31.0 G/dL Low 33.0-37.0 [facility] ([place]) Comment on above: Performed By: #### C BC, ADIFF, ANEU, FERR, FE #### [address] [address] MCV (RBC) [Entitic vol] 69.9 fL Low 80.0-94.0 [facility] ([place]) Comment on above: Performed By: #### C BC, ADIFF, ANEU, FERR, FE #### [address] [address] Platelet 183 10 3/mcL Normal 130-400 [facility] ([place]) Comment on above: Performed By: #### C BC, ADIFF, ANEU, FERR, FE #### [address] [address] Platelet mean volume (Bld) [Entitic vol] 9.2 fL Normal 7.4-10.4 [facility] ([place]) Comment on above: Performed By: #### C BC, ADIFF, ANEU, FERR, FE #### [address] [address] RBC 4.04 10 6/mcL Low 4.20-5.40 [facility] ([place]) Comment on above: Performed By: #### C BC, ADIFF, ANEU, FERR, FE #### [address] [address] WBC 5.9 10 3/mcL Normal 4.6-10.8 [facility] ([place]) Comment on above: Performed By: #### C BC, ADIFF, ANEU, FERR, FE #### [address] [address] FEon 05-10-2023 Iron [Mass/Vol] 14 ug/dL Low 50-170 [facility] ([place]) Comment on above: Performed By: #### C BC, ADIFF, ANEU, FERR, FE #### [address] [address] Travis 05-10-2023 Ferritin [Mass/Vol] 6.0 ng/mL Low 8.0-252.0 [facility] ([place]) Comment on above: Performed By: #### C FRANK ELAM ANEU, FERR, FE #### [place] [id number] LABORATORYOrdered By: SYSTEM SYSTEM on 05-10-2023 Immature reticulocytes/Total reticulocytes (Bld) 0.33 IRF Normal 0.20 - 0.46 IRF AO Workflow SS Reticulocytes, Auto 1.0 % Normal 0.2 - 2.3 % AO W orkflow SS Basophil, Absolute 0.0 103/mcL Normal 0.0 - 0.2 10^3/mcL AO Workflow SS Basophils/100 WBC (Bld) 0.8 % Normal 0.0 - 2.5 % AO Workflow SS Calcium [Mass/Vol] 10.3 mg/dL High 8.4 - 10. 2 mg/dL AO ADM SS Chloride [Moles/Vol] 109 mmol/L High 98 - 10 7 mmol/L AO ADM SS CO2 [Moles/Vol] 27 mmol/L Normal 23 - 31 mmol/L AO ADM SS Creatinine [Mass/Vol] 0.71 mg/dL Normal 0.55 - 1.02 mg/dL AO ADM SS Electrolyte Balance 9.0 mEq/L Normal 4.0 - 15 .0 mEq/L AO ADM SS Eosinophil, Absolute 0.1 103/mcL Normal 0.0 - 0 .4 10^3/mcL AO Workflow SS Eosinophils/100 WBC (Bld) 1.3 % Normal 0.0 - 7.0 % AO Workflow SS Erythrocyte distribution width (RBC) [Ratio] 20.1 % High 11.5 - 14.5 % AO Workflow SS Ferritin [Mass/Vol] 6.0 ng/mL Low 8.0 - 25 2.0 ng/mL AO ADM SS GFR/1.73 sq M.predicted among blacks MDRD (S/P/Bld) [Vol rate/Area] 97 ml/min/1.73sqm Invalid Interpretation Code AO Chemistry S Comment on above: Interpretive Data: GFR Population mean for , Non- Americans Ages 20-29 = 116 mL/min/1.73 sq.m. Ages 30-39 = 107 mL/min/1.73 sq.m. Ages 40-49 = 99 mL/min/1.73 sq.m. Ages 50-59 = 93 mL/min/1.73 sq.m. Ages 60-69 = 85 mL/min/1.73 sq.m. Ages 70+ = 75 mL/min/1.73 sq.m. Chronic Kidney Disease: Less than 60 mL/min/1.73 square meters End Stage Renal Disease: Less than 15 mL/min/1.73 square meters GFR/1.73 sq M.predicted among non-blacks MDRD (S/P/Bld) [Vol rate/Area] 80 ml/min/1.73sqm Invalid Interpretation Code AO Chemistry S Comment on above: Interpretive Data: GFR Population mean for , Non- Americans Ages 20-29 = 116 mL/min/1.73 sq.m. Ages 30-39 = 107 mL/min/1.73 sq.m. Ages 40-49 = 99 mL/min/1.73 sq.m. Ages 50-59 = 93 mL/min/1.73 sq.m. Ages 60-69 = 85 mL/min/1.73 sq.m. Ages 70+ = 75 mL/min/1.73 sq.m. Chronic Kidney Disease: Less than 60 mL/min/1.73 square meters End Stage Renal Disease: Less than 15 mL/min/1.73 square meters Glucose [Mass/Vol] 107 mg/dL Normal 83 - 110 mg/dL AO ADM SS Hematocrit (Bld) [Volume fraction] 28.2 % Low 37.0 - 47.0 % AO Workflow SS Hemoglobin (Bld) [Mass/Vol] 8.8 G/dL Low 12.0 - 16.0 G/dL AO Workflow SS Iron [Mass/Vol] 14 ug/dL Low 50 - 170 mcg/dL AO ADM SS Lymphocyte, Absolute 2.3 103/mcL Normal 0.8 - 3 .9 10^3/mcL AO Workflow SS Lymphocytes/100 WBC (Bld) 38.7 % Normal 10.0 - 50.0 % AO Workflow SS MCH (RBC) [Entitic mass] 21.7 pg Low 27. 0 - 31.2 pg AO Workflow SS MCHC 31.0 G/dL Low 33.0 - 37.0 G/dL AO Workflow SS MCV (RBC) [Entitic vol] 69.9 fL Low 80.0 - 94.0 fL AO Workflow SS Monocyte, Absolute 0.4 103/mcL Normal 0.2 - 1.0 10^3/mcL AO Workflow SS Monocytes/100 WBC (Bld) 6.6 % Normal 1.7 - 13.0 % AO Workflow SS Neutrophil, Absolute 3.1 103/mcL Normal 2.9 - 6 .2 10^3/mcL AO Workflow SS Neutrophils/100 WBC (Bld) 52.6 % Normal 37.0 - 80.0 % AO Workflow SS Platelet mean volume (Bld) [Entitic vol] 9.2 fL Normal 7.4 - 10.4 fL AO Workflow SS Platelets (Bld) [#/Vol] 183 103/mcL Normal 130 - 400 10^3/mcL AO Workflow SS Potassium [Moles/Vol] 4.5 mmol/L Normal 3.5 - 5.1 mmol/L AO ADM SS RBC (Bld) [#/Vol] 4.04 106/mcL Low 4.20 - 5.4 0 10^6/mcL AO Workflow SS Sodium [Moles/Vol] 145 mmol/L Normal 136 - 145 mmol/L AO ADM SS TSH Qn 2.13 m[IU]/L Normal 0.36 - 3.74 mcIU/mL AO ADM SS Urea nitrogen [Mass/Vol] 10 mg/dL Normal 7 - 18 mg/d L AO ADM SS Urea nitrogen/Creatinine [Mass ratio] 14 ratio Normal 7 - 27 ratio AO ADM SS WBC (Bld) [#/Vol] 5.9 103/mcL Normal 4.6 - 10.8 10^3/mcL AO Workflow SS LABORATORYOrdered By: Sobeida Barnett on 05-10-2023 Platelet Estimate Normal (05/10/23 4:02 PM) Normal AO Hematology S RETO (AO)on 05-10-2023 Immature Retic Fraction 0.33 IRF Normal 0.20-0.46 [facility] ([place]) Comment on above: Performed By: #### C FRANK ELAM ANEU, FERR, FE #### [place] [id number] [place], [place] [address] Reticulocytes, Auto 1.0 % Normal 0.2-2.3 [facility] ([place]) Comment on above: Performed By: #### C BC, ADIFF, ANEU, FERR, FE #### [facility] [address] [place], [place] [address] TSHon 05-10-2023 TSH Qn 2.13 m[IU]/L Normal 0.36-3.74 [facility] ([place]) Comment on above: Performed By: #### C MARAILUISA, FRANK, ANEU, FERR, FE #### [facility] [address] [place], [place] [address] Absolute lymphocyte countOrd ered By: María Roque on 03-20-2023 Lymphocytes Auto (Unsp spec) [#/Vol] 1.52 10*3/uL 0.83-4.51 [facility] Basophil percentageOrdered B y: María Roque on 03-20-2023 Basophil percentage 10-25 SEEN /hpf 0-5 [facility] Basophils/100 WBC (Bld) 0.6 % 0-[address] [facility] Chloride [Moles/Vol] 110 mmol/L 98-107 [facility] Eosinophils/100 WBC (Bld) 0.8 % 0-5 [facility] Glucose [Mass/Vol] 95 mg/dL 74-106 [facility] Neutrophils (Bld) [#/Vol] 3.0 10*3/uL 2.0-7.7 [facility] Neutrophils/100 WBC (Bld) 60.9 % 47-70 [facility] Potassium [Moles/Vol] 4.1 mmol/L 3.5-5.1 [facility] Comment on above: Moderate Hemolysis, Result may be falsely increased. Sodium [Moles/Vol] 141 mmol/L 136-145 [facility] WBC (Bld) [#/Vol] 4.9 10*3/uL 4.4-11.0 [facility] Bilirubin Test strip Ql (U)O rdered By: María Roque on 03-20-2023 Bilirubin Ql (U) Negative Negative [facility] Blood erythrocytes count (nu mber/volume)Ordered By: María Roque on 03-20-2023 RBC (Bld) [#/Vol] 4.03 10*6/uL 4.2-5.4 [facility] Blood hemoglobin measurement (mass/volume)Ordered By: María Roque on 03-20-2023 Hemoglobin (Bld) [Mass/Vol] 8.5 g/dL 12.0-15.0 [facility] Blood lymphocytes/100 leukoc ytesOrdered By: María Roque on 03-20-2023 Lymphocytes/100 WBC (Bld) 30.8 % 19-41 [facility] Blood monocytes/100 leukocyt esOrdered By: María Roque on 03-20-2023 Monocytes/100 WBC (Bld) 6.9 % 0-[address] [facility] Blood platelet mean volumeOr dered By: María Roque on 03-20-2023 Platelet mean volume (Bld) [Entitic vol] 11.2 fL 6.2-12.0 [facility] Determination of erythrocyte mean corpuscular volume (MCV)Ordered By: María Roque on 03-20-2023 MCV (RBC) [Entitic vol] 73.0 fL 81-[address] [facility] Hematocrit Auto (Bld) [Volum e fraction]Ordered By: María Roque on 03-20-2023 Hematocrit (Bld) [Volume fraction] 29.4 % 37-47 [facility] Ketones Test strip Ql (U)Ord ered By: María Roque on 03-20-2023 Ketones Ql (U) 15 mg/dl Negative [facility] Laboratory - Chemistry and C hemistry - challengeOrdered By: María Roque on 03-20-2023 CO2 [Moles/Vol] 28.0 mmol/L 21.0-32.0 [facility] Natriuretic peptide B (Bld) [Mass/Vol] 101.3 pg/mL 0-100 [facility] Urea nitrogen/Creatinine [Mass ratio] 26.5 mg/mg 10-20 [facility] Laboratory - Hematology and Cell countsOrdered By: María Roque on 03-20-2023 Erythrocyte distribution width (RBC) [Entitic vol] 51.4 fL 35.1-43.9 [facility] Erythrocyte distribution width (RBC) [Ratio] 19.5 % 11.6-14.6 [facility] Immature granulocytes/100 WBC (Bld) 0.000 % 0.0-0.9 [facility] Comment on above: IG% - Immature Granu locytes (promyelocytes, myelocytes and metamyelocytes) > 1% indicates that a LEFT SHIFT is Present. MCH (RBC) [Entitic mass] 21.1 pg 27.0-32.0 [facility] Nucleated RBC/100 WBC (Bld) [Ratio] 0 % 0-5 [facility] MCHC Auto (RBC) [Mass/Vol]Or dered By: María Roque on 03-20-2023 MCHC (RBC) [Mass/Vol] 28.9 g/dL 32-36 [facility] Mucus LM Ql (Urine sed)Order ed By: María Roque on 03-20-2023 Mucus Ql (Urine sed) 0 SEEN /hpf [facility] Nitrite Test strip Ql (U)Ord ered By: María Roque on 03-20-2023 Nitrite Ql (U) Negative Negative [facility] No Panel InformationOrdered By: María Roque on 03-20-2023 Estimated Creatinine Clearance Calc 40.21 ml/min [facility] Estimated GFR (MDRD) Amer 125 mL/min >60 [facility] Comment on above: GFR Calc Estimated GFR (MDRD) Non-Af Amer 103 mL/min >60 [facility] Comment on above: Non- GFR Calc Troponin I High Sensitivity 7 pg/mL 3.0-54.0 [facility] Comment on above: Please Note: New Liliane t Units and Gender Specific Reference Ranges. For more information see Policy Stat Procedure [place] High Sensitivity Troponin (TNIH) and attachments. Platelets bldOrdered By: Emma Roque on 03-20-2023 Platelets (Bld) [#/Vol] 151 10*3/uL 150-450 [facility] Protein Test strip Ql (U)Ord ered By: María Mya on 03-20-2023 Protein Ql (U) Negative Negative [facility] Serum or plasma calcium crystal urement (mass/volume)Ordered By: María Roque on 03-20-2023 Calcium [Mass/Vol] 9.4 mg/dL 8.5-10.1 [facility] Serum or plasma creatinine m easurement (mass/volume)Ordered By: María Roque on 03-20-2023 Creatinine [Mass/Vol] 0.60 mg/dL 0.55-1.02 [facility] Comment on above: The validity of the calculated GFR & GFRAA in patients over 70 years has not been determined. Clinical correlation is essential. Serum or plasma urea nitroge n measurement (mass/volume)Ordered By: María Roque on 03-20-2023 Urea nitrogen [Mass/Vol] 16 mg/dL 7-18 [facility] Squamous epithelial cells de tection in urine sediment by light microscopyOrdered By: María Roque on 03-20-2023 Epithelial cells.squamous LM Ql (Urine sed) 0-5 SEEN /hpf 5-10 [facility] Thin prep Papanicolaou smear with manual screeningOrdered By: María Roque on 03-20-2023 Thin prep Papanicolaou smear with manual screening 3 5-15 [facility] Urine blood detectionOrdered By: María Roque on 03-20-2023 RBC Ql (U) Negative Negative [facility] RBC Ql (U) 0 SEEN /hpf 0-5 [facility] Urine clarityOrdered By: Emma Roque on 03-20-2023 Clarity (U) Sl. Cloudy Clear [facility] Urine color determinationOrd ered By: María Roque on 03-20-2023 Color (U) Yellow Yellow [facility] Urine glucose detectionOrder ed By: Maraí Roque on 03-20-2023 Glucose Ql (U) Normal mg/dl Normal [facility] Urine leukocyte esterase det ection by dipstickOrdered By: María Roque on 03-20-2023 Leukocyte esterase Test strip Ql (U) 100 /ul Negative [facility] Urine pHOrdered By: María Un gur on 03-20-2023 pH (U) 6.5 [pH] 5.0 - 8.0 [facility] Urine sediment bacteria coun t by microscopy (number/high power field)Ordered By: María Roque on 03-20-2023 Bacteria LM.HPF (Urine sed) [#/Area] 0 /[HPF] None Seen [facility] Urine specific gravity measu rementOrdered By: María Roque on 03-20-2023 Specific gravity (U) [Rel density] 1.010 1.002-1.030 [facility] Urobilinogen Auto test strip Ql (U)Ordered By: María Roque on 03-20-2023 Urobilinogen Ql (U) 1 mg/dl Normal [facility] LABORATORYOrdered By: Jesus Anderson on 10-19-2022 Albumin DL <= 20 mg/L (U) [Mass/Vol] 1349 mcg/dL Invalid Interpretation Code AO ADM SS Albumin/Creatinine DL <= 20 mg/L (U) [Mass ratio] 9 mcg/mg Invalid Interpretation Code 0 - 30 mcg/mg AO ADM SS Creatinine (U) [Mass/Vol] 157.2 mg/dL Invalid Interpretation Code 28.0 - 117.0 mg/dL AO ADM SS LABORATORYOrdered By: [email or web address] on 10-19-2022 25-hydroxyvitamin D3 [Mass/Vol] 65.9 ng/mL Invalid Interpretation Code AO ADM SS Albumin BCP dye [Mass/Vol] 3.5 G/dL Invalid Interpretation Code 3.4 - 4.8 G/dL AO ADM SS Albumin/Globulin [Mass ratio] 1.3 {ratio} Invalid Interpretation Code 1.1 - 2.5 ratio AO ADM SS ALP [Catalytic activity/Vol] 99 U/L Invalid Interpretation Code 40 - 135 U/L AO ADM SS ALT With P-5'-P [Catalytic activity/Vol] 17 U/L Invalid Interpretation Code 14 - 59 U/L AO ADM SS AST With P-5'-P [Catalytic activity/Vol] 13 U/L Invalid Interpretation Code 10 - 40 U/L AO ADM SS Bilirubin [Mass/Vol] 0.8 mg/dL Invalid Interpretation Code 0.2 - 1.0 mg/dL AO ADM SS Calcium [Mass/Vol] 10.1 mg/dL Invalid Interpretation Code 8.4 - 10.2 mg/dL AO ADM SS Chloride [Moles/Vol] 106 mmol/L Invalid Interpretation Code 98 - 107 mmol/L AO ADM SS CO2 [Moles/Vol] 28 mmol/L Invalid Interpretation Code 23 - 31 mmol/L AO ADM SS Creatinine [Mass/Vol] 0.64 mg/dL Invalid Interpretation Code 0.55 - 1.02 mg/dL AO ADM SS Electrolyte Balance 8.0 mEq/L Invalid Interpretation Code 4.0 - 15.0 mEq/L AO ADM SS GFR/1.73 sq M.predicted among blacks MDRD (S/P/Bld) [Vol rate/Area] 110 ml/min/1.73sqm Invalid Interpretation Code AO Chemistry S GFR/1.73 sq M.predicted among non-blacks MDRD (S/P/Bld) [Vol rate/Area] 91 ml/min/1.73sqm Invalid Interpretation Code AO Chemistry S Globulin 2.6 G/dL Invalid Interpretation Code AO ADM SS Glucose [Mass/Vol] 99 mg/dL Invalid Interpretation Code 83 - 110 mg/dL AO ADM SS Potassium [Moles/Vol] 4.2 mmol/L Invalid Interpretation Code 3.5 - 5.1 mmol/L AO ADM SS Protein [Mass/Vol] 6.1 G/dL Invalid Interpretation Code 6.4 - 8.2 G/dL AO ADM SS Sodium [Moles/Vol] 142 mmol/L Invalid Interpretation Code 136 - 145 mmol/L AO ADM SS Urea nitrogen [Mass/Vol] 15 mg/dL Invalid Interpretation Code 7 - 18 mg/dL AO ADM SS Urea nitrogen/Creatinine [Mass ratio] 23 ratio Invalid Interpretation Code 7 - 27 ratio AO ADM SS Otheron 09-06-2008 CONVERTED CLINICAL HISTORY OPERATIVE PROCEDURE: Laparoscopic Tj-en-Y gastric bypass, intraop EGD CLINICAL INFORMATION: Morbid obesity [facility] CONVERTED ELECTRONIC SIGNATURE JO ANN BERRY M.D., PATHOLOGIST (Electronic signature on file) Final Signed Out: 09/06/2008 16:00 [facility] CONVERTED FINAL DIAGNOSIS FINAL DIAGNOSIS: GASTRIC AND BOWEL SEGMENTS, EXCISION - SEGMENTS OF UNREMARKABLE GASTRIC AND SMALL INTESTINAL TISSUES. SPECIMEN: GASTRIC [facility] CONVERTED GROSS DESCRIPTION GROSS DESCRIPTION: Gastric & bowel fragments Received in formalin labeled gastric and bowel fragments are multiple irregular fragments of gastric and intestinal tissues with stapled excision margins. The specimen in aggregate measures 6.5 x 4 x 2 cm. Sectioning reveals grossly unremarkable mucosa. Senior Staff Consultant sections of the tissue are submitted in three cassettes. EDS/gpl MICROSCOPIC DESCRIPTION: Slides reviewed. EDS/lrs [facility] CONVERTED ORDERING PROVIDER Ordering Provider: SYLVIA ROMERO [facility] Otheron 08-21-2008 CONVERTED CLINICAL HISTORY OPERATIVE PROCEDURE: Esophagogastroduode noscopy; colonoscopy CLINICAL INFORMATION: Screening; GERD [facility] CONVERTED ELECTRONIC SIGNATURE HALLIE CHURCH M.D. (Electronic signature on file) Final Signed Out: 08/21/2008 15:12 [facility] CONVERTED FINAL DIAGNOSIS FINAL DIAGNOSIS: A) GASTRIC BIOPSY (ANTRUM) - BENIGN GASTRIC MUCOSA WITH NO INFLAMMATORY PROCESS OR OTHER DIAGNOSTIC ABNORMALITY IDENTIFIED. B) BIOPSY OF GASTROESOPHAGEAL JUNCTION - CHRONICALLY INFLAMED SQUAMOUS AND GASTRIC-TYPE MUCOSA. COMMENT: No intestinal metaplasia is identified on the Alcian blue/PAS stain. SPECIMEN: (A) GASTRIC BIOPSY (B) G-E JUNCTION BIOPSY [facility] CONVERTED ORDERING PROVIDER Ordering Provider: SYLVIA ROMERO [facility] Vital Signs Date Time Vital Sign Value Performing Clinician Faci justin 04-14-2023 11:03-0500 Body temperature 97.7 [degF] Dr. Maksim Vitale Work Phone: [facility] 04-14-2023 11:03-0500 Diastolic blood pressure 82 mm[Hg] Dr. Maksim Vitale Work Phone: [facility] 04-14-2023 11:03-0500 Heart rate 58 /min Dr. Maksim Vitale Work Phone: [facility] 04-14-2023 11:03-0500 Respiratory rate 16 /min Dr. Maksim Vitale Work Phone: [facility] 04-14-2023 11:03-0500 SaO2% (BldA) [Mass fraction] 98 % Dr. Maksim Vitale Work Phone: [facility] 04-14-2023 11:03-0500 Systolic blood pressure 138 mm[Hg] Dr. Maksim Vitale Work Phone: [facility] 03-20-2023 13:39-0500 Diastolic blood pressure 77 mm[Hg] Dr. Maksim Vitale Work Phone: [facility] 03-20-2023 13:39-0500 Heart rate 81 /min Dr. Maksim Vitale Work Phone: [facility] 03-20-2023 13:39-0500 Respiratory rate 17 /min Dr. Maksim Vitale Work Phone: [facility] 03-20-2023 13:39-0500 SaO2% (BldA) [Mass fraction] 98 % Dr. Maksim Vitale Work Phone: [facility] 03-20-2023 13:39-0500 Systolic blood pressure 170 mm[Hg] Dr. Maksim Vitale Work Phone: [facility] 03-20-2023 10:45-0500 Body height 160.[address] Maksim Vitale Work Phone: [facility] 03-20-2023 10:45-0500 Body mass index (BMI) [Ratio] 30.9 kg/m2 Dr. Maksim Vitale Work Phone: [facility] 03-20-2023 10:45-0500 Body temperature 97.4 [degF] Dr. Maksim Vitale Work Phone: [facility] 03-20-2023 10:45-0500 Body weight 79.[address] Maksim Vitale Work Phone: [facility] 03-20-2023 10:33-0500 Diastolic blood pressure 96 mm[Hg] Dr. Maksim Vitale Work Phone: [facility] 03-20-2023 10:33-0500 Systolic blood pressure 222 mm[Hg] Dr. Maksim Vitale Work Phone: [facility] 03-20-2023 10:18-0500 Body mass index (BMI) [Ratio] 30.9 kg/m2 Dr. Maksim Vitale Work Phone: [facility] 03-20-2023 10:18-0500 Body temperature 97.7 [degF] Dr. Maksim Vitale Work Phone: [facility] 03-20-2023 10:18-0500 Body weight 79.[address] Maksim Vitale Work Phone: [facility] 03-20-2023 10:18-0500 Heart rate 77 /min Dr. Maksim Vitale Work Phone: [facility] 03-20-2023 10:18-0500 Respiratory rate 16 /min Dr. Maksim Vitale Work Phone: [facility] 03-20-2023 10:18-0500 SaO2% (BldA) [Mass fraction] 93 % Dr. Maksim Vitale Work Phone: [facility] 08-21-2008 15:120400 Body mass index (BMI) [Ratio] Sylvia Romero [facility] Encounters Encounter Date Encounter Type Care Provider Facility Start: 11-30-2024 End: 11-30-2024 ambulatory CHANDLER CADY SPEEDER WORKER-[employer]TER FILLER Facility:[facility] Start: 11-30-2024 End: 11-30-2024 Patient encounter procedure LISA ENGEL MD [facility] Start: 09-21-2024 ambulatory MAKSIM VITALE DO Facil ity:[facility] Start: 08-11-2024 End: 08-11-2024 ambulatory Jas MONTERROSO Facility:[facility] Start: 07-10-2024 End: 07-10-2024 ambulatory MAKSIM VITALE DO Facility:[facility] Start: 06-03-2024 End: 06-03-2024 ambulatory Brittney Cross Facility:[facility] Start: 12-18-2023 End: 12-18-2023 ambulatory MAKSIM VITALE DO Facility:[facility] Start: 12-18-2023 End: 12-18-2023 Patient encounter procedure MAKSIM VITALE DO [facility] Start: 06-10-2023 End: 06-10-2023 ambulatory MAKSIM VITALE DO Facility:[facility] Start: 05-10-2023 End: 05-10-2023 ambulatory MAKSIM VITALE DO Facility:[facility] Start: 05-10-2023 End: 05-10-2023 Patient encounter procedure MAKSIM VITALE DO [facility] Start: 04-14-2023 End: 04-14-[address] Maksim Vitale Work Phone: [facility] Work Phone: Start: 04-14-2023 End: 04-14-[address] Maksim Vitale Work Phone: [facility] Work Phone: Start: 03-20-2023 Non-patient / Non-visit Dr. Naida Vitale Work Phone: [facility] Start: 03-20-2023 End: 03-20-2023 Emergency department patient visit Dr. Maksim Vitale Work Phone: [facility] Work Phone: Start: 03-20-2023 End: 03-20-[address] Maksim Vitale Work Phone: [facility] Work Phone: Start: 10-19-2022 End: 10-19-2022 Patient encounter procedure MAKSIM VTIALE DO [facility] Start: 08-17-2008 End: 08-17-2008 Patient encounter procedure Sylvia Romero Work Phone: [facility] Start: 08-17-2008 Results Only Sylvia Armstrong Cesilia arriola Work Phone: [facility] Procedures Date Procedure Procedure Detail Performing Clinician Start: 04-14-2023 Plain chest X-ray Dr. Maksim Vitale Work Phone: Start: 09-05-2008 CONVERTED SURGICAL PATHOLOGY Sylvia Romero Work Phone: Start: 08-17-2008 CONVERTED SURGICAL PATHOLOGY Sylvia Romero Work Phone: Appendectomy MAKSIM VITALE DO Bypass of stomach MAKSIM GARCIA DO Excision of breast tissue MAKSIM VITALE DO H/O: surgery S/P gastric surgery MAKSIM SCHWARZ DO History of bilateral mastectomy History of bilateral mastectomy MAKSIM VITALE DO History of mastectomy S/P mastectomy CARLIEE RT JAVI DO History of total hysterectomy History of hysterectomy including cervix MAKSIM JAVI DO Hysterectomy MAKSIM VITALE DO Plan of Treatment Date Care Activity Detail Author Start: 03-20-2023 [facility] Start: 12-19-2019 Influenza vaccination INFLUENZA (#1) [facility] Start: 11-21-2018 DIABETES SCREEN DIABETES SCREEN [facility] Start: 2013 ADVANCE DIRECTIVE DISCUSSION ADVANCE DIRECTIVE DISCUSSION [facility] Start: 2013 BONE DENSITY BONE DENSITY [facility] Start: 2013 PNEUMOVAX AGE 65 AND OVER WITH 5YR LOOKBACK (#1) PNEUMOVAX AGE 65 AND OVER WITH 5YR LOOKBACK (#1) [facility] Start: 1998 SHINGRIX VACCINE (1 of 2) SHINGRIX VACCINE (1 of 2) [facility] Start: 1998 Tuberculosis screening COLOREC GAYATRI CANCER SCREENING,SEE MODIFIER [facility] Start: 1993 LIPID SCREEN LIPID SCREEN [facility] Start: 1988 Mammography MAMMOGRAM [facility] Start: 1967 Urine microalbumin profile DTAP,TDAP,TD (1 - Tdap) [facility] Start: 1966 HEPATITIS C SCREENING HEPATITIS C SC [facility] Patient Education ED Peripheral Edema, Bilateral ED Hypertension, Established [facility] Work Phone: Patient referral [facility] Work Phone: Immunizations Immunization Date Immunization Notes Care Provider Jennifer lima 03-21-2023 RSV vaccine preF3, recombinant MAKSIM VITALE DO [facility] 01-22-2023 SARS-CoV-2 (COVID-19 ) [id number] MAKSIM VITALE DO [facility] 01-11-2023 influenza virus vacc ine, unspecified formulation MAKSIM VITALE DO [facility] 02-12-2022 influenza virus vacc ine, unspecified formulation MAKSIM VITALE DO [facility] 01-20-2022 SARS-CoV-2 (CV19)mRNA-1273 bivalent vac MAKSIM SIEGELY DO [facility] 07-27-2021 SARS-CoV-2 (COVID-19 ) mRNA-1273 vaccine MAKSIM VITALE DO [facility] 02-08-2021 SARS-CoV-2 (COVID-19 ) mRNA-1273 vaccine MAKSIM VITALE DO [facility] Comment on above: Result Comment: 2023: [id number] 07-01-2020 SARS-CoV-2 (COVID-19 ) mRNA-1273 vaccine MAKSIM VITALE DO [facility] 06-04-2020 SARS-CoV-2 (COVID-19 ) mRNA-1273 vaccine MAKSIM VITALE DO [facility] 02-15-2020 zoster vaccine recombinant MAKSIM AQUINOSAY DO [facility] 11-05-2019 zoster vaccine recombinant MAKSIM VITALE DO [facility] 05-29-2019 pneumococcal polysaccharide vaccine, 23 valent MAKSIM AQUINOSAY DO [facility] 05-27-2018 tetanus toxoid, redu diana diphtheria toxoid, and acellular pertussis vaccine, adsorbed MAKSIM AQUINOSAY DO [facility] 05-27-2017 pneumococcal conjuga te vaccine, 13 valent MAKSIM JAVI DO [facility] Payers Date Payer Category Payer Private Health Insurance [id number] 2024 Medicare [id number] 2024 Self-pay [id number] 2023 Medicare [id number] 2023 Private Health Insurance [id number] 2019 Medicare [id number] 1948 Unknown [id number] 1948 Unknown [id number] 1948 Unknown [id number] 1948 Unknown [id number] 1948 Unknown [id number] 1948 Unknown [id number] Private Health Insurance [id number] Unknown [facility] [id number] Unknown [id number] Unknown [id number] Social History Date Type Detail [facility] Sex Assigned At Not on file [facility] Start: 05-09-2019 End: 07-10-2024 Tobacco smoking status Never smoked tobacco (finding) [facility] Start: 1950 Sex Assigned At Female [facility] Start: 04-14-2023 Tobacco smoking stat [facility] Unknown if ever smoked [facility] Sexual Orientation [facility] Start: 10-12-2018 Sex Female (finding) [facility] Mental Status Date Assessment Result Facility 03-20-2023 Cognitive function Level Of Cons ciousness Awake;Alert;Appropriate;Follow s Commands [facility] Work Phone: Evaluation + Plan note Note Date & Type Note Facility Evaluation + Plan note Future Appointments Appointment Date:04/15/2023 03:30:00 PM Scheduled Provider:MAKSIM VITALE DO Location:[facility] Appointment Type:PC OV Diagnostic Tests PendingVitamin B12 Level 10/19/22 [facility] Evaluation + Plan note Note Date & Type Note Facility Evaluation + Plan note Future Appointments Appointment Date:06/10/2023 11:00:00 AM Scheduled Provider:MAKSIM VITALE DO Location:[facility] Appointment Type:PC OV [facility] Evaluation + Plan note Note Date & Type Note Facility Evaluation + Plan note Future Appointments Appointment Date:06/22/2024 01:00:00 PM Scheduled Provider:MAKSIM VITALE DO Location:[facility] Appointment Type:PC OV [facility] Evaluation + Plan note Laboratory Note Date & Type Note Facility Evaluation + Plan note Future Appointments Appointment Date:01/08/2025 01:00:00 PM Scheduled Provider:CHANDLER LAZAR Location:[facility] Appointment Type:PC OV Follow Up Future Scheduled TestsFerritin 06/22/24Iron Level 06/22/24Complete Blood Count 06/22/24Albumin/Creatinine Ratio, Random Urine 06/22/24Albumin/Creatinine Ratio, Random Urine 07/10/24Complete Metabolic Panel 06/22/24 [facility] Evaluation note Note Date & Type Note Facility Evaluation note Diagnosis Onset Date Hypertensive urgency acute Acute bronchitis acute Sinusitis, acute acute [facility] Work Phone: Hospital course Narrative Note Date & Type Note Facility Hospital course Narrative No data available for this section [facility] Hospital Discharge instructions Note Date & Type Note Facility Hospital Discharge instructions No data available for this section [facility] Progress note Note Date & Type Note Facility Progress note No data available for this section [facility] Chief Complaint and Reason for Visit Chief Complaint SWOLLEN ANKLES HTN COUGH, CONGESTION, NAUSEA Cough Reason for Visit Hypertensive urgency Acute bronchitis Sinusitis, acute Advance Directives No Advanced Directives Records Found Advance Directive Response Recorded Date/ Time Living Will No March 20 11:22am Power of Research Physician No March 20, 2023 11:22am Summary Purpose Family History No Family History Records Found Additional Source Comments Source Comments (unrecognize d section and content) In the event this informatio n is protected by the Federal Confidentiality of Alcohol and Drug Abuse Patient Records regulations: The Federal rules restrict any use of the information to criminally investigate or prosecute any alcohol or drug abuse patient.[facility] Patient Care team informatio n (unrecognized section and content) Team Status: Active Member Role Status Dates Dr. Maksim Vitale DO Family Provider Active Dr. Maksim Vitale DO Primary Care Provider Active Team Status: Inactive Member Role Status Dates Dr. Maksim Vitale , DO Primary Care Provider, Referri ng Provider Active Jas Ky PA, PA Attending Provider Active Team Status: Active Member Role Status Dates Dr. Maksim Vitale , DO Primary Care Provider Active Dr. Jo Ann Leroy MD Attending Provider Active Dr. María Roque , DO Referring Provider Active Team Status: Inactive Member Role Status Dates Dr. Maksim Vitale , DO Primary Care Provider Active Dr. María Roque , DO Attending Provider, Referring Provider, Emergency Provider Active Team Status: Inactive Member Role Status Dates Dr. Maksim Vitale , DO Primary Care Provider Active LOC [place] Attending Provider, Referring Provi bob Active Goals (unrecognized section and content) Goals may be documented in a n alternate section INFORMATION SOURCE (unrecogn ized section and content) DATE CREATED AUTHOR 12/19/[address] [facility] ([place]) DATE CREATED AUTHOR AUTHOR'S ORGANIZ ATION 08/12/2024 [facility] DATE CREATED AUTHOR AUTHOR'S ORGANIZ ATION 12/02/2024 [facility] FOR RECORDS PERTAINING TO PATIENTS WHO ARE OR HAVE BEEN ENROLLED IN A CHEMICAL DEPENDENCY/SUBSTANCEABUSE PROGRAM, SOME INFORMATION MAY BE OMITTED. This clinical summary was aggregated from multiple sources. Caution should be exercised in using it in the provision of clinical care. This summary normalizes information from multiple sources, and as a consequence, information in this document may materially change the coding, format and clinical context of patient data. In addition, data may be omitted in some cases. CLINICAL DECISIONS SHOULD BE BASED ON THE PRIMARY CLINICAL RECORDS. [facility] [employer] [facility]. provides no warranty or guarantee of the accuracy or completeness of information in this document.
--- NOTE | 2025-04-12 14:57 | EKG12_ITS ---
Test Reason : HIGH HR Blood Pressure : */* mmHG Vent. Rate : 73 BPM Atrial Rate : 73 BPM P-R Int : 182 ms QRS Dur : 86 ms QT Int : 392 ms P-R-T Axes : 14 -10 9 degrees QTcB Int : 431 ms Normal sinus rhythm Normal ECG Confirmed by Raghavendra Pickard ([id number]), managing editor SHERWIN MOLINA ([id number]) on 04/13/2025 8:28:48 AM Referred By: Confirmed By: Raghavendra Pickard
[2025-04-12] MEDS: Adenosine 6 MG/2 ML Syringe IV (15:06)
[2025-04-12 15:20] LABS: Hematocrit 42.0 % (37-47); Hemoglobin 13.5 g/dL (12.0-15.0); Immature Granulocytes Count 0.020 X10^3/uL (0.0-0.0); Mean Corp Hgb Conc 32.1 g/dL (32-36); Mean Corpuscular Volume 96.1 fL (81-99); Mean Platelet Vol. 12.4 fl (6.2-12.0); NRBC Flagged by Analyzer 0 % (0-5); Platelet Count 144 K/mm3 (150-450); RBC Distribution Width CV 13.6 % (11.6-14.6); RBC Distribution Width SD 48.8 fl (35.1-43.9); Red Blood Count 4.37 M/mm3 (4.2-5.4); White Blood Count 6.6 K/mm3 (4.4-11.0)
[2025-04-12 15:23] LABS: Prothrombin Time (Protime)PT. 13.3 SECONDS (11.7-14.9)
[2025-04-12 15:24] LABS: Partial Thromboplast Time 26.1 Seconds (24.1-36.2)
--- NOTE | 2025-04-12 15:31 | CT_ITS ---
PROCEDURE: STROKE BRAIN/HEAD WITHOUT CONT 04/12/2025 REASON FOR EXAM: ACUTE HEADACHE EVALUATE SUBARACHNOID HEMORRHAGE TECHNIQUE: Procedure Code: CTBR.ST Modality: CT Procedure: STROKE BRAIN/HEAD WITHOUT CONT Coronal and Sagittal reconstruction series were provided. One or more dose reduction techniques were used (e.g., Automated exposure control, adjustment of the mA and/or kV according to patient size, use of iterative reconstruction technique. RADIATION DOSE SUMMARY: CTDlvol: 44.99 mGy DLP: 812.98 mGycm COMPARISON: None. FINDINGS: Brain: No acute territorial infarction. No acute intracranial hemorrhage. No mass-effect or midline shift. Diffuse white matter hypodensities which are nonspecific but likely due to chronic small-vessel ischemia. Parenchymal volume loss consistent with brain atrophy. No ventriculomegaly. The orbits are unremarkable. The craniocervical junction is unremarkable. CSF Spaces: Advanced generalized cerebral atrophy Sinuses/Mastoids: Clear. Bones: No acute bony abnormalities. CT/STROKE Brain/Head without Cont IMPRESSION: No acute intracranial abnormalities. Reading Location: [id number]
[2025-04-12 15:35] LABS: AST(SGOT) 16 U/L (<=31); Alanine Aminotransfer ALT/SGPT 10 U/L (<=34); Albumin, Serum 4.0 g/dL (3.4-4.8); Alkaline Phosphatase 81 U/L (35-104); Anion Gap 13 (7-18); BUN 15 mg/dL (4-19); BUN/Creat Ratio 20.9 RATIO (10-20); Calcium,Total 10.5 mg/dL (7.6-11.0); Carbon Dioxide 24.7 mmol/L (20.0-29.0); Chloride 107 mmol/L (96-106); Estimated Creatinine Clearance 59.54 ml/min (50-250); Globulin 2.3 g/dL (2.2-4.2); Glucose 127 mg/dL (70-99); Potassium 3.9 mmol/L (3.5-5.1); Troponin T High Sensitivity 20 ng/L (<=14)
--- NOTE | 2025-04-12 15:38 | EKG12_ITS ---
Test Reason : HIGH HR Blood Pressure : */* mmHG Vent. Rate : 84 BPM Atrial Rate : * BPM P-R Int : * ms QRS Dur : 84 ms QT Int : 334 ms P-R-T Axes : * -7 80 degrees QTcB Int : 394 ms Sinus rhythm with premature ventricular or aberrantly conducted complexes ST & T wave abnormality, consider lateral ischemia Abnormal ECG Confirmed by Raghavendra Pickard ([id number]), online editor SHERWIN MOLINA ([id number]) on 04/13/2025 8:29:13 AM Referred By: Confirmed By: Raghavendra Pickard
--- NOTE | 2025-04-12 15:39 | EKG12_ITS ---
Test Reason : HIGH HR Blood Pressure : */* mmHG Vent. Rate : 192 BPM Atrial Rate : * BPM P-R Int : * ms QRS Dur : 92 ms QT Int : 256 ms P-R-T Axes : * 10 219 degrees QTcB Int : 457 ms Critical Test Result: High HR Supraventricular tachycardia RSR' or QR pattern in V1 suggests right ventricular conduction delay Marked ST abnormality, possible inferior subendocardial injury Marked ST abnormality, possible anterolateral subendocardial injury Abnormal ECG Confirmed by Raghavendra Pickard ([id number]), assignment editor SHERWIN MOLINA ([id number]) on 04/13/2025 8:29:35 AM Referred By: Confirmed By: Raghavendra Pickard
--- NOTE | 2025-04-12 16:41 | PCM.HP.STD ---
HPI - General General Date of Admission: 04/12/25 Date of Service: 04/12/25 Chief Complaint: Dizziness, spots in her vision. HPI Narrative The patient is a 75 y/o F w/ PMHx: Obesity, Possible CKD stage I versus stage II, HTN, Chart history of chronic anemia, GERD w/ Hx Gastric ulcers, Chronic headaches who presents to [facility] ED on 04/12/2025 with history of onset on day of presentation dizziness as well as acute bilateral headache starting approximately 30 minutes prior to initial ED arrival described as moderate to severe with associated nausea with no emesis which reportedly started immediately following oral intake with patient reporting black dots dancing in her vision with no specific room spinning or lightheadedness but difficult to ascertain given poor ability to relay with no trouble with her speech or swallowing and no other neurological concerning findings prompting ED evaluation. She reports that in mid-March she did have URI type symptoms with headache, congestion, rhinorrhea, sore throat, body aches and was tested for strep throat at that time however it did end up being negative but in the interim she been placed on a 10-day course of antibiotic therapy which given timeline presuming likely treatment for possible strep throat but uncertain. She denies any continuation of the symptoms. Workup in the ED included T98, heart rate 125, BP 189/94, respiratory rate 16, 99% on room air with transient tachycardia noted in the ED with heart rate reportedly at 1 point up to 190, most recent repeat vitals heart rate 80, BP 185/81, respiratory rate 15, 99% room air, CBC with WBC 6.6, hemoglobin 13.5, platelets 144 with mildly increased neutrophils, unremarkable coags, CMP with chloride 107, BUN/creatinine 15/0.7, GFR 89, glucose 127, lactic acid 1.9, hepatic profile unremarkable, initial troponin 20 with repeat delta 2-hour 23, CT brain with no acute intracranial findings, telemetry in the ED with onset narrow complex tachycardia regular and consistent with PSVT with EKG with confirmation PSVT with ST segment abnormality aVR, V1 with elevation depression 1, 2, V2, V3, 4 5 and 6 treated with 6 mg of adenosine with conversion to sinus rhythm at that time with EKG confirmation although computer reportedly read as A-fib however rhythm strip obtained and felt that rhythm was consistent with sinus rhythm. In the ED additionally to be cautious NIH stroke assessment obtained and noted to be 0. In the ED patient ministered metoprolol 5 mg IV x 1, labetalol a total of 30 mg IV, hydralazine 10 mg IV, adenosine 6 mg IV. [facility] Medical History GERD (gastroesophageal reflux disease) History of gastric ulcer Frequent headaches Anemia Hemorrhoids Arthritis Hypertension Home Medications ?Medication ?Instructions ?Recorded ?Last Taken ?Type doxazosin 4 mg tablet 4 mg PO QDAY 08/08/17 Unknown History lactobacillus combination no.8 3 3,000 mmu cells PO QDAY 08/08/17 Unknown History billion cell capsule (Adult Probiotic) fluticasone propionate 50 2 spray intranasal DAILY #9.9 grams 01/09/18 Unknown Rx mcg/actuation nasal spray,suspension (Flonase Allergy Relief) atenolol 25 mg tablet 25 mg PO DAILY 04/12/25 Unknown History clobetasol 0.05 % topical cream 1 applic topical BID PRN yeast 04/12/25 Unknown History infection conjugated estrogens 0.625 mg 0.625 mg PO DAILY 04/12/25 Unknown History tablet (Premarin) ferrous gluconate 240 mg (27 mg 240 mg PO BID 04/12/25 Unknown History iron) tablet furosemide 20 mg tablet (Lasix) 20 mg PO DAILY 04/12/25 Unknown History omeprazole 20 mg capsule,delayed 20 mg PO DAILY 04/12/25 Unknown History release Allergy/AdvReac Type Severity Reaction Status Date / Time Penicillins Allergy Intermediate Hives Verified 04/12/25 13:49 Sulfa (Sulfonamide Allergy Intermediate hives Verified 04/12/25 13:49 Antibiotics) adhesive tape Allergy Mild unknown Verified 04/12/25 13:49 Family History (Updated 04/12/25 @ 17:[address] Clemencia Yun MD) Mother Diabetes Heart disease Hypertension Father Diabetes Prostate cancer Grandmother Breast cancer Both maternal and paternal grandmothers. Family History no significant family his Surgical History S/P bladder repair S/P appendectomy H/O gastric bypass S/P bilateral mastectomy S/P tonsillectomy and adenoidectomy S/P cataract extraction Social History household members: spouse Smoking Status: Former smoker alcohol intake: never substance use type: does not use ROS ROS Narrative Admission Review of Systems: CONSTITUTIONAL: No weight loss, fever, chills, + weakness or fatigue. HEENT: + Headache bilaterally, dizziness but poorly described, occasionally seeing dots in her vision. Eyes: No visual loss, blurred vision, double vision or yellow sclerae. Ears, Nose, Throat: No hearing loss, sneezing, congestion, runny nose or sore throat. SKIN: No rash or itching, lesions, wounds. CARDIOVASCULAR: + Chronic edema no chest pain, chest pressure or chest discomfort, palpitations, orthopnea, syncopal events. RESPIRATORY: No shortness of breath, cough or sputum, wheezing, hemoptysis. GASTROINTESTINAL: + anorexia, nausea. No vomiting or diarrhea, abdominal pain, melena, BRBPR. GENITOURINARY: No dysuria, frequency, urgency or retention. NEUROLOGICAL: + Headache, dizziness, dots in her vision. No syncope, paralysis, ataxia, numbness or tingling in the extremities, focal weakness, change in bowel or bladder control, seizure. MUSCULOSKELETAL: + muscle, back pain, joint pain or stiffness. HEMATOLOGIC: + Reported history of previous anemia, no current easy history of bleeding or bruising. LYMPHATICS: No enlarged nodes. No history of splenectomy. PSYCHIATRIC: No history of depression or anxiety. ENDOCRINOLOGIC: No reports of sweating, cold or heat intolerance. No polyuria or polydipsia. ALLERGIES: + History of hives, allergic rhinitis. Patient's Goals Of Care . What would you like to achieve or improve as a result of your hospital stay?: Resolution of dizziness/LH, normalization of heart rate. Vital Signs Vital Signs Vital Signs: 04/12/25 13:48 04/12/25 14:00 04/12/25 14:12 Temperature 98 F Temperature Source Temporal Pulse Rate 125 H 64 Respiratory Rate 16 18 Blood Pressure 189/94 H 239/99 H Blood Pressure Mean 125 145 Pulse Ox 99 98 97 Oxygen Delivery Method Room Air Room Air Room Air 04/12/25 14:13 04/12/25 14:15 04/12/25 14:15 Temperature Temperature Source Pulse Rate 118 H 119 H 120 H Respiratory Rate 19 H 17 23 H Blood Pressure 171/99 H 171/99 H Blood Pressure Mean 123 117 Pulse Ox 97 96 97 Oxygen Delivery Method Room Air 04/12/25 14:20 04/12/25 14:25 04/12/25 14:30 Temperature Temperature Source Pulse Rate 70 77 70 Respiratory Rate 22 H 18 16 Blood Pressure 202/72 H 209/113 H 187/109 H Blood Pressure Mean 106 132 135 Pulse Ox 99 98 98 Oxygen Delivery Method Room Air 04/12/25 14:30 04/12/25 14:35 04/12/25 14:40 Temperature Temperature Source Pulse Rate 125 H 53 L 59 L Respiratory Rate 18 18 20 H Blood Pressure 187/109 H 191/77 H 203/77 H Blood Pressure Mean 133 109 114 Pulse Ox 97 97 98 Oxygen Delivery Method 04/12/25 14:45 04/12/25 14:50 04/12/25 14:55 Temperature Temperature Source Pulse Rate 71 70 Respiratory Rate 13 16 Blood Pressure 170/116 H 195/72 H 158/96 H Blood Pressure Mean 132 106 111 Pulse Ox 98 97 Oxygen Delivery Method 04/12/25 15:00 04/12/25 15:00 04/12/25 15:05 Temperature Temperature Source Pulse Rate 155 H 190 H Respiratory Rate 24 H 23 H Blood Pressure 107/77 107/77 120/69 Blood Pressure Mean 88 88 83 Pulse Ox 99 Oxygen Delivery Method 04/12/25 15:10 04/12/25 15:15 04/12/25 15:20 Temperature Temperature Source Pulse Rate 87 84 70 Respiratory Rate 18 27 H 13 Blood Pressure 126/86 H 185/92 H 187/92 H Blood Pressure Mean 100 113 117 Pulse Ox 99 100 100 Oxygen Delivery Method 04/12/25 15:25 04/12/25 15:30 04/12/25 15:31 Temperature Temperature Source Pulse Rate 71 68 Respiratory Rate 22 H 16 Blood Pressure 192/94 H 190/87 H Blood Pressure Mean 116 111 Pulse Ox 96 100 Oxygen Delivery Method 04/12/25 15:35 04/12/25 15:40 04/12/25 15:45 Temperature Temperature Source Pulse Rate 75 76 115 H Respiratory Rate 18 19 H 16 Blood Pressure 197/99 H 204/90 H 176/107 H Blood Pressure Mean 125 121 129 Pulse Ox 99 99 98 Oxygen Delivery Method 04/12/25 15:50 04/12/25 15:55 04/12/25 16:00 Temperature Temperature Source Pulse Rate 115 H 77 77 Respiratory Rate 17 21 H 14 Blood Pressure 194/108 H 192/87 H 193/91 H Blood Pressure Mean 131 117 120 Pulse Ox 100 99 Oxygen Delivery Method 04/12/25 16:05 04/12/25 16:10 Temperature Temperature Source Pulse Rate 78 80 Respiratory Rate 20 H 15 Blood Pressure 200/79 H 185/81 H Blood Pressure Mean 112 109 Pulse Ox 99 99 Oxygen Delivery Method Weight Weight: 179 lb 10.828 oz Body Mass Index (BMI) 31.8 Physical Exam Narrative Physical Examination: General: Awake, alert, oriented x 3 and cooperative, laying in ED bed, no acute distress, denies any lightheadedness or dizziness, notes she needs to use the restroom and preferably would like to get up and use the toilet. Skin: Normal color, normal turgor, no icterus, no cyanosis except occasional stage ecchymoses, abrasion. HEENT: AT/NC, EOMI, PERRLA, MMM, no carotid bruits, no obvious marked elevated JVD. Lungs: Diminished, greater bases, poor effort, no evidence of any distress, no rales, ronchi or wheezing. Heart: Currently regular rate and rhythm; no gallop, rub audible. Of note however on monitor during evaluation patient did become mildly tachycardic but this quickly returned to an appropriate rate. Abdomen: Soft, obese, NTTP, ND, normal BS, no appreciated HSM. Extremities: No cyanosis, no clubbing, mild ankle to distal vyas chronic edema. Neurological: Patient awake, alert, oriented as noted, cognitive function intact; pupils equally reactive to light and accommodation, cranial nerves grossly normal, moving all 4 extremities, no focal deficits, strength moderately globally decreased secondary to acute presentation complaints. Psychiatric: Affect appears mildly fatigued otherwise normal, no acute evidence of depressive or anxiety feelings. Results Lab / Micro Data 04/12/25 14:02 04/12/25 14:02 Labs: Laboratory Results - last 24 hr 04/12/25 14:02: WBC 6.6, RBC 4.37, Hgb 13.5, Hct 42.0, MCV 96.1, MCH 30.9, MCHC 32.1, RDW Std Deviation 48.8 H, RDW Coeff of Daphney 13.6, Plt Count 144 L, MPV 12.4 H, Immature Gran % (Auto) 0.300, Neut % (Auto) 71.4 H, Lymph % (Auto) 20.8, [place] % (Auto) 6.0, Eos % (Auto) 1.2, Baso % (Auto) 0.3, Absolute Neuts (auto) 4.7, Absolute Lymphs (auto) 1.38, Nucleated RBC % 0, ESR 1, PT 13.3, INR 1.0, APTT 26.1, Sodium 145, Potassium 3.9, Chloride 107 H, Carbon Dioxide 24.7, Anion Gap 13, BUN 15, Creatinine 0.70, Estim Creat Clear Calc 59.54, Est GFR (MDRD) Non-Af 89, BUN/Creatinine Ratio 20.9 H, Glucose 127 H, Calcium 10.5, Total Bilirubin 0.50, AST 16, ALT 10, Alkaline Phosphatase 81, Troponin T High Sens 20 H, Total Protein 6.3, Albumin 4.0, Globulin 2.3, Albumin/Globulin Ratio 1.8 04/12/25 15:16: Lactic Acid 1.9 Imaging Radiology Impression Brain CT 04/12/25 15:31 IMPRESSION: No acute intracranial abnormalities. Reading Location: [facility] Assessment & Plan Assessment/Plan (1) Paroxysmal supraventricular tachycardia: PLAN: Plan The patient is a 75 y/o F w/ PMHx: Obesity, Possible CKD stage I versus stage II, HTN, Chart history of chronic anemia, GERD w/ Hx Gastric ulcers, Chronic headaches who presents to [facility] ED on 04/12/2025 with history of onset on day of presentation dizziness as well as acute bilateral headache starting approximately 30 minutes prior to initial ED arrival described as moderate to severe with associated nausea with no emesis which reportedly started immediately following oral intake with patient reporting black dots dancing in her vision with no specific room spinning or lightheadedness but difficult to ascertain given poor ability to relay with no trouble with her speech or swallowing and no other neurological concerning findings prompting ED evaluation. #1. Reported dizziness, bilateral headache with accelerated hypertension and PSVT (symptomatic) with elevated cardiac enzyme of unclear significance: Will admit to PCU, place on a monitored bed to assure no acute myocardial infarction with serial cardiac enzymes and EKGs. Magnesium level requested. TSH level requested. Echocardiogram requested. Will continue on moderate dose beta-roxanne therapy with dose now with plan for additional medication as needed to maintain appropriate BP control although this will need to be done in a stepwise fashion with current goal 160-180 systolic thus will defer aggressive addition of regimen given this is currently with a BP is at. FLP in a.m. ASA. Cardiology consulted. To be cautious will obtain full respiratory viral panel given recent illness history and current presentation. If beta-roxanne therapy is not effective certainly low threshold to trial Cardizem and if necessary a drip may be initiated. If blood pressure decreases then low threshold to attempt utilization of amiodarone if needed instead. #2. Hyperglycemia, mild with no diabetic history: Admission glucose 127, no diabetic history, HgbA1c requested to be cautious. #3. Acute thrombocytopenia, possibly reactive: Admission platelets 144, previous to this only 1 lab value additionally noted to be normal range, will continue to trend CBC to further elucidate chronicity. #4. Chronic Kidney Disease Stage II versus stage I per GFR trend, uncertain as not a significant mount of labs available for trending: Admission BUN/Cr 15/0.70, GFR 89, baseline renal function 0.6-0.7, repeat BMP in AM. #5. Obesity: Weight loss and lifestyle changes encouraged. #6. Former tobacco use: Encourage continued tobacco cessation. #7. DVT prophylaxis: Lovenox. #8. CODE status: Patient HCPOA and living will are not in place but she notes her who is present would be her medical decision-maker if necessary. Discussed CODE status at length including difference between FULL code, DNR-CCA and DNR-CC status. Following discussions about the differences in these status, requested Full Code status. Charges/Coding Visit Charges Inpatient E&M: 20126 Init Hosp L3
[2025-04-12 16:42] LABS: Troponin T High Sens 2 HR 23 ng/L (<=14)
--- OUTSIDE RECORDS SUMMARY | 2025-04-12 17:32 | XMS RPT_ITS | CCD ---
Author Organization [facility] Care Team Providers Care Dental Therapist Name Role Phone Pcp, No Primary Care Provider Unavailabl e MAKSIM VITALE DO Primary Care Physician Dr. Maksim Vitale Primary Care Provider Dr. Maksim Vitale Referring Provider [phone] LOC Freed Attending Provider Dr. Jo Ann Leroy Attending Provider [phone] María Roque Referring Provider MAKSIM VITALE DO Attending Unavailable MAKSIM VITALE [...] oxyCODONE; Translations: [acetaminophen-ox ycodone] Drug Allergy Hallucinations [facility] (4 sources) Adhesive Tape Allergy to substance [facility] (3 sources) Penicillin; Translations: [penicillins] Drug Allergy [facility] (1 source) Sulfonamides (Antibiotic); Translations: [sulfa drugs] Drug allergy [facility] (2 sources) Adhesive Tape; Translations: [adhesive tape] Allergy to substance 3 unknown [facility] (1 source) Penicillins Allergy to substance 3 [facility] (1 source) Sulfonamides (Antibiotic) Allergy to substance 3 [facility] (3 sources) Sulfonamide; Translations: [sulfa drugs] Drug allergy [facility] (1 source) Penicillins Drug allergy (disorder) 5 [facility] (1 source) Sulfonamides (Antibiotic) Drug allergy (disorder) 5 [facility] (1 source) Penicillin; Translations: [penicillins] Drug Allergy [facility] Medications Current Medications Medication Drug Class(es) Dates Sig (Normalized) Sig (Original) atenolol 25 mg oral tablet (5 sources) beta-Adrenergic Cindi Start: 11-24-2024 atenolol 25 mg oral tablet Dose : 25 mg = 1 tab(s), Oral, qDay, IN LIEU OF PCP, # 30 tab(s), 0 Refill(s), Pharmacy: [facility]/pharmacy #[id number], HTN (hypertension), 153, cm, 08/24/24 11:25:00 EDT, Height, kg, 08/24/24 11:25:00 EDT, Dosing Weight Start Date: 11/24/24 Status: Ordered Medication Dispense Status: Completed Quantity: 30.0 Unit: tab(s) Total Allowed Fills: 1 Fills Dispensed: 0 Indications: Essential (primary) hypertension; Start: 12-16-2023 atenolol 25 mg oral tablet Dose : 25 mg = 1 tab(s), Oral, qDay, # 90 tab(s), 3 Refill(s), Pharmacy: [facility]/pharmacy #[id number], HTN (hypertension), 150.5, cm, 12/16/23 13:27:00 EDT, Height, kg, 12/16/23 13:27:00 EDT, Dosing Weight Start Date: 12/16/23 Status: Ordered Start: 12-04-2023 atenolol 50 mg oral tablet Dose : 50 mg = 1 tab(s), Oral, qDay, # 90 tab(s), 3 Refill(s), [facility]: [facility] #[id number], 156, cm, 10/19/22 15:33:00 EDT, Height, kg, 10/19/22 15:33:00 EDT, Dosing Weight Start Date: 03/22/23 Status: Ordered Start: 10-19-2022 atenolol 50 mg oral tablet Dose : 50 mg = 1 tab(s), Oral, qDay, # 90 tab(s), 3 Refill(s), [facility]: [facility] #[id number], 156, cm, 10/19/22 15:33:00 EDT, Height, kg, [...] PCP, # 30 tab(s), 0 Refill(s), Pharmacy: [facility]/pharmacy #[id number], 153, cm, 08/24/24 11:25:00 EDT, Height, kg, 08/24/24 11:25:00 EDT, Dosing Weight Start Date: 11/24/24 Status: Ordered Medication Dispense Status: Completed Quantity: 30.0 Unit: tab(s) Total Allowed Fills: 1 Fills Dispensed: 0 Start: 08-08-2017 doxazosin 4 mg oral tablet Dose : 4 mg = 1 tab(s), Oral, qDay, # 90 tab(s), 3 Refill(s), Pharmacy: [facility] #[id number], 156, cm, 10/19/22 15:33:00 EDT, Height, kg, 10/19/22 15:33:00 EDT, Dosing Weight Start Date: 10/19/22 Status: Ordered estrogens, conjugated (skilled nursing) 0.625 mg oral tablet (5 sources) Estrogen Start: 11-24-2024 Premarin 0.625 mg oral tablet Dose : 0.625 mg = 1 tab(s), Oral, qDay, IN LIEU OF PCP, # 30 tab(s), 0 Refill(s), Pharmacy: [facility]/pharmacy #[id number], 153, cm, 08/24/24 11:25:00 EDT, Height, kg, 08/24/24 11:25:00 EDT, Dosing Weight Start Date: 11/24/24 Status: Ordered Medication Dispense Status: Completed Quantity: 30.0 Unit: tab(s) Total Allowed Fills: 1 Fills Dispensed: 0 Start: 12-16-2023 Premarin 0.625 mg oral tablet Dose : 0.625 mg = 1 tab(s), Oral, qDay, # 90 tab(s), 3 Refill(s), Pharmacy: [facility]/pharmacy #[id number], 150.5, cm, 12/16/23 13:27:00 EDT, Height, kg, 12/16/23 13:27:00 EDT, Dosing Weight Start Date: 12/16/23 Status: Ordered Start: 10-19-2022 Premarin 0.625 mg oral tablet Dose : 0.625 mg = 1 tab(s), Oral, qDay, # 90 tab(s), 3 Refill(s), [facility] #[id number], 156, cm, 10/19/22 15:33:00 EDT, Height, kg, [...] PCP, # 60 tab(s), 0 Refill(s), Pharmacy: [facility]/pharmacy #[id number], Iron deficiency anemia, 153, cm, 08/24/24 [...] qDay, # 90 tab(s), 0 Refill(s), Pharmacy: [facility]/pharmacy #[id number], 153.4, cm, 07/10/24 13:02:00 EDT, Height, [...] 10, # 33 tab(s), 2 Refill(s), [id number], 150.5, cm, 12/16/23 13:27:00 EDT, [...] PCP, # 30 tab(s), 0 Refill(s), Pharmacy: [facility]/pharmacy #[id number], Edema leg, 153, cm, 08/24/24 11:25:00 EDT, Height, kg, 08/24/24 11:25:00 EDT, Dosing Weight Start Date: 11/24/24 Status: Ordered Medication Dispense Status: Completed Quantity: 30.0 Unit: tab(s) Total Allowed Fills: 1 Fills Dispensed: 0 Indications: Localized edema; Start: 03-20-2023 furosemide 20 mg oral tablet Dose : 20 mg = 1 tab(s), Oral, qDay, PRN Swelling, # 30 tab(s), 2 Refill(s), [facility] #[id number], Localized swelling of left lower leg, 155, [...] symptoms, # 3 EA, 1 Refill(s), Pharmacy: [facility]/pharmacy #[id number], 153.4, cm, 07/10/24 13:02:00 EDT, Height, [...] PCP, # 30 cap(s), 0 Refill(s), Pharmacy: [facility]/pharmacy #[id number], GERD without esophagitis, 153, cm, 08/24/24 [...] qDay, # 90 cap(s), 3 Refill(s), Pharmacy: [facility] #[id number], 156, cm, 10/19/22 15:33:00 EDT, Height Start [...] full glass of water after each meal [facility] (4 sources) Start: 06-06-2016 take 1 capsule by mouth once daily [facility] Dose = 1 cap(s), Oral, qDay Start Date: 06/06/16 Status: Ordered Medication Dispense Status: Completed Total Allowed Fills: 1 Fills Dispensed: 0 Start: 06-06-2016 take 1 capsule by mo ut once daily [facility] Dose = 1 cap(s), Oral, qDay [...] anxiety, # 30 tab(s), 0 Refill(s), Pharmacy: [facility]/pharmacy #[id number], Anxiety, 153.4, cm, 06/22/24 13:05:00 EST, Height, [...] anxiety, # 30 tab(s), 0 Refill(s), Pharmacy: [facility]/pharmacy #[id number], Anxiety, 150.5, cm, 12/16/23 13:27:00 EDT, [...] day(s), # 45 gram(s), 3 Refill(s), Pharmacy: [facility]/pharmacy #[id number], 150.5, cm, 12/16/23 13:27:00 EDT, Height, [...] DAY, # 30 gram(s), 1 Refill(s), Pharmacy: [facility]/pharmacy #[id number], Cream, 153.4, cm, 07/10/24 13:02:00 EDT, Height, [...] Reporton 0 08-11-2024 Urgent Care Visit Report [facility] [address], [address] [place] [address] OFFICE VISIT Date of Service: 08/11/24 MR#: [id number] Acct: [id number] Name: IVAN MARTINES Rep #: [id number] : 1950 Provider: LOC Abel Age/Sex: 74/F Location[place] [facility] Status: Signed Intake Vital Signs 06/03/24 09:39 08/11/24 08:49 Height 5 ft 3 in BP 166/78 H Blood Pressure Location Lt brachial Position Sitting Respiration 17 Pulse 80 Pulse Source NIBP Temp 97.9 F Temp Source Oral Pulse Oximetry (%) 97 Oxygen Delivery Method room air Intake Visit Reasons: R EAR ACHE Chief Complaint: bilat ears [employer] Required: No Is patient in pain?: Yes [...] Lennoner Signature: Date (if applicable) CC: Normal [facility] .Auto Diffon 07-10-2024 Basophil, Absolute 0.0 10 3/mcL Normal 0.0-0.2 [facility] Comment on above: Performed By: #### A HELADIO, VIDH, ADIFF, CMP, CBC, GFR, FERR, FE #### [address] [address] #### B12 #### [address] [address] Basophils/100 WBC (Bld) 0.3 % Normal 0.0-2.5 [facility] Comment on above: Performed By: #### A HELADIO, VIDH, ADIFF, CMP, CBC, GFR, FERR, FE #### [address] [address] #### B12 #### [address] [address] Eosinophil, Absolute 0.1 10 3/mcL Normal 0.0-0.7 [facility] Comment on above: Performed By: #### A HELADIO, VIDH, ADIFF, CMP, CBC, GFR, FERR, FE #### [address] [address] #### B12 #### [address] [address] Eosinophils/100 WBC (Bld) 1.1 % Normal 0.0-7.0 [facility] Comment on above: Performed By: #### A HELADIO, VIDH, ADIFF, CMP, CBC, GFR, FERR, FE #### [place] [address] #### B12 #### [address] [address] Lymphocyte, Absolute 2.0 10 3/mcL Normal 0.9-4.3 [facility] Comment on above: Performed By: #### A HELADIO, VIDH, ADIFF, CMP, CBC, GFR, FERR, FE #### [place] [address] #### B12 #### [address] [address] Lymphocytes/100 WBC (Bld) 37.1 % Normal 20.0-40.0 [facility] Comment on above: Performed By: #### A HELADIO, VIDH, ADIFF, CMP, CBC, GFR, FERR, FE #### [place] [address] #### B12 #### [address] [address] Monocyte, Absolute 0.3 10 3/mcL Normal 0.1-1.4 [facility] Comment on above: Performed By: #### A HELADIO, VIDH, ADIFF, CMP, CBC, GFR, FERR, FE #### [place] [address] #### B12 #### [address] [address] Monocytes/100 WBC (Bld) 5.6 % Normal 2.0-13.0 [facility] Comment on above: Performed By: #### A HELADIO, VIDH, ADIFF, CMP, CBC, GFR, FERR, FE #### [place] [address] #### B12 #### [address] [address] Neutrophils/100 WBC (Bld) 55.9 % Normal 50.0-75.0 [facility] Comment on above: Performed By: #### A HELADIO, VIDH, ADIFF, CMP, CBC, GFR, FERR, FE #### [address] [address] #### B12 #### [address] [address] .GFRon 07-10-2024 Estimated Glomerular Filtration Rate 87 ml/min/1.73sqm Normal [facility] Comment on above: Result Comment: Stages of [...] ADIFF, CMP, CBC, GFR, FERR, FE #### [place] [id number] #### B12 #### [address] [address] .NEUABSon 07-10-2024 Neutrophil, Absolute 2.9 10 3/mcL Normal 2.3-8.1 [facility] Comment on above: Performed By: #### A HELADIO, VIDH, ADIFF, CMP, CBC, GFR, FERR, FE #### [address] [address] #### B12 #### [address] [address] B12on 07-10-2024 Cobalamin (Vitamin B12) [Mass/Vol] 1645 pg/mL High 211-911 [facility] Comment on above: Performed By: #### A HELADIO, VIDH, ADIFF, CMP, CBC, GFR, FERR, FE #### [place] [id number] #### B12 #### [address] [address] CBCon 07-10-2024 Erythrocyte distribution width (RBC) [Ratio] 14.6 % Normal 11.5-15.5 [facility] Comment on above: Performed By: #### A HELADIO, VIDH, ADIFF, CMP, CBC, GFR, FERR, FE #### [place] [address] #### B12 #### [place] [address] Hematocrit (Bld) [Volume fraction] 40.6 % Normal 34.0-46.0 [facility] Comment on above: Performed By: #### A HELADIO, VIDH, ADIFF, CMP, CBC, GFR, FERR, FE #### [place] [address] #### B12 #### [place] [address] Hgb 13.4 G/dL Normal 12.0-16.0 [facility] Comment on above: Performed By: #### A HELADIO, VIDH, ADIFF, CMP, CBC, GFR, FERR, FE #### [place] [address] #### B12 #### [place] [address] MCH (RBC) [Entitic mass] 30.8 pg Normal 27.0-33.0 [facility] Comment on above: Performed By: #### A HELADIO, VIDH, ADIFF, CMP, CBC, GFR, FERR, FE #### [place] [address] #### B12 #### [place] [address] MCHC 33.0 G/dL Normal 32.0-36.0 [facility] Comment on above: Performed By: #### A HELADIO, VIDH, ADIFF, CMP, CBC, GFR, FERR, FE #### [place] [address] #### B12 #### [place] [address] MCV (RBC) [Entitic vol] 93.3 fL Normal 80.0-99.0 [facility] Comment on above: Performed By: #### A HELADIO, VIDH, ADIFF, CMP, CBC, GFR, FERR, FE #### [place] [address] #### B12 #### [place] [address] Platelet 144 10 3/mcL Low 150-450 [facility] Comment on above: Performed By: #### A HELADIO, VIDH, ADIFF, CMP, CBC, GFR, FERR, FE #### [place] [address] #### B12 #### [place] [address] Platelet mean volume (Bld) [Entitic vol] 10.2 fL Normal 6.6-10.5 [facility] Comment on above: Performed By: #### A HELADIO, VIDH, ADIFF, CMP, CBC, GFR, FERR, FE #### [place] [address] #### B12 #### [place] [address] RBC 4.35 10 6/mcL Normal 4.10-5.30 [facility] Comment on above: Performed By: #### A HELADIO, VIDH, ADIFF, CMP, CBC, GFR, FERR, FE #### [place] [address] #### B12 #### [place] [address] WBC 5.3 10 3/mcL Normal 4.5-10.8 [facility] Comment on above: Performed By: #### A HELADIO, VIDH, ADIFF, CMP, CBC, GFR, FERR, FE #### [place] [address] #### B12 #### [address] [address] CMPon 07-10-2024 Albumin Level 3.3 G/dL Low 3.4-4.8 [facility] Comment on above: Performed By: #### A HELADIO, VIDH, ADIFF, CMP, CBC, GFR, FERR, FE #### [address] [address] #### B12 #### [place] [address] Albumin/Globulin [Mass ratio] 1.2 {ratio} Normal 1.1-2.5 [facility] Comment on above: Performed By: #### A HELADIO, VIDH, ADIFF, CMP, CBC, GFR, FERR, FE #### [address] [address] #### B12 #### [place] [address] ALP [Catalytic activity/Vol] 93 U/L Normal 40-135 [facility] Comment on above: Performed By: #### A HELADIO, VIDH, ADIFF, CMP, CBC, GFR, FERR, FE #### [place] [address] #### B12 #### [address] [address] ALT [Catalytic activity/Vol] 18 U/L Normal 14-59 [facility] Comment on above: Performed By: #### A HELADIO, VIDH, ADIFF, CMP, CBC, GFR, FERR, FE #### [address] [address] #### B12 #### [place] [id number] AST [Catalytic activity/Vol] 17 U/L Normal 10-40 [facility] Comment on above: Performed By: #### A HELADIO, VIDH, ADIFF, CMP, CBC, GFR, FERR, FE #### [place] [address] #### B12 #### [address] [address] Bili Total 0.6 mg/dL Normal 0.2-1.0 [facility] Comment on above: Result Comment: Use of this assay is not recommended for patients undergoing treatment with eltrombopag due to the potential for falsely elevated results. Performed By: #### A HELADIO, VIDH, ADIFF, CMP, CBC, GFR, FERR, FE #### [place] [address] #### B12 #### [address] [address] BUN/Creatinine Ratio 18 ratio Normal 7-27 [facility] Comment on above: Performed By: #### A HELADIO, VIDH, ADIFF, CMP, CBC, GFR, FERR, FE #### [place] [address] #### B12 #### [address] [address] Calcium [Mass/Vol] 9.9 mg/dL Normal 8.4-10.2 [facility] Comment on above: Performed By: #### A HELADIO, VIDH, ADIFF, CMP, CBC, GFR, FERR, FE #### [place] [address] #### B12 #### [address] [address] Chloride [Moles/Vol] 108 mmol/L High 98-107 [facility] Comment on above: Performed By: #### A HELADIO, VIDH, ADIFF, CMP, CBC, GFR, FERR, FE #### [place] [address] #### B12 #### [address] [address] CO2 [Moles/Vol] 27 mmol/L Normal 23-31 [facility] Comment on above: Performed By: #### A HELADIO, VIDH, ADIFF, CMP, CBC, GFR, FERR, FE #### [place] [address] #### B12 #### [place] [address] Creatinine [Mass/Vol] 0.72 mg/dL Normal 0.55-1.02 [facility] Comment on above: Result Comment: Test ing performed on Siemens Dimension EXL analyzer using a modified kinetic Ino technique. Performed By: #### A HELADIO, VIDH, ADIFF, CMP, CBC, GFR, FERR, FE #### [place] [address] #### B12 #### [place] [address] Electrolyte Balance 8.0 mEq/L Normal 4.0-15.0 [facility] Comment on above: Performed By: #### A HELADIO, VIDH, ADIFF, CMP, CBC, GFR, FERR, FE #### [place] [address] #### B12 #### [place] [address] Globulin 2.7 G/dL Normal 1.5-3.8 [facility] Comment on above: Performed By: #### A HELADIO, VIDH, ADIFF, CMP, CBC, GFR, FERR, FE #### [place] [address] #### B12 #### [place] [address] Glucose [Mass/Vol] 176 mg/dL High 83-110 [facility] Comment on above: Performed By: #### A HELADIO, VIDH, ADIFF, CMP, CBC, GFR, FERR, FE #### [place] [address] #### B12 #### [place] [address] Potassium [Moles/Vol] 4.4 mmol/L Normal 3.5-5.1 [facility] Comment on above: Performed By: #### A HELADIO, VIDH, ADIFF, CMP, CBC, GFR, FERR, FE #### [place] [address] #### B12 #### [address] [address] Sodium [Moles/Vol] 143 mmol/L Normal 136-145 [facility] Comment on above: Performed By: #### A HELADIO, VIDH, ADIFF, CMP, CBC, GFR, FERR, FE #### [place] [address] #### B12 #### [place] [address] Total Protein 6.0 G/dL Low 6.4-8.2 [facility] Comment on above: Performed By: #### A HELADIO, VIDH, ADIFF, CMP, CBC, GFR, FERR, FE #### [place] [address] #### B12 #### [place] [address] Urea nitrogen [Mass/Vol] 13 mg/dL Normal 7-18 [facility] Comment on above: Performed By: #### A HELADIO, VIDH, ADIFF, CMP, CBC, GFR, FERR, FE #### [place] [address] #### B12 #### [place] [address] FEon 07-10-2024 Iron [Mass/Vol] 70 ug/dL Normal 50-170 [facility] Comment on above: Performed By: #### A HELADIO, VIDH, ADIFF, CMP, CBC, GFR, FERR, FE #### [place] [address] #### B12 #### [place] [address] Travis 07-10-2024 Ferritin [Mass/Vol] 52.0 ng/mL Normal 8.0-252.0 [facility] Comment on above: Performed By: #### A HELADIO, VIDH, ADIFF, CMP, CBC, GFR, FERR, FE #### [place] [address] #### B12 #### [address] [address] VIDHon 07-10-2024 Vit. D 25-Hydroxy 69.5 ng/mL Normal [facility] Comment on above: Result Comment: Inte rpretive Values Based on Total 25(OH) Vitamin D: Deficient <20 ng/mL Insufficient 20 - <30 ng/mL Sufficient 30-100 ng/mL Performed By: #### A HELADIO, VIDH, ADIFF, CMP, CBC, GFR, FERR, FE #### [facility] [address] [place], [place] [address] #### B12 #### [address] [address] Urgent Care Visit Reporton 0 06-03-2024 Urgent Care Visit Report [facility] [address], [address] [place] [address] OFFICE VISIT Date of Service: 06/03/24 MR#: [id number] Acct: [id number] Name: IVAN MARTINES Rep #: [id number] : 1950 Provider: JAMES Cross Age/Sex: 74/F Location[place] [facility] Status: Signed Intake Vital Signs 03/20/23 10:45 [...] Otitis m (more content not included)... Normal [facility] .Auto Diffon 12-18-2023 Basophil, Absolute 0.0 10 3/mcL Normal 0.0-0.2 [facility] ([place]) Comment on above: Performed By: #### C FRANK ELAM, ANEU, FERR, FE #### [place] [address] [place], [place] [address] Basophils/100 WBC (Bld) 0.4 % Normal 0.0-2.5 [facility] ([place]) Comment on above: Performed By: #### C FRANK ELAM, ANEU, FERR, FE #### [place] [address] [place], [place] [address] Eosinophil, Absolute 0.1 10 3/mcL Normal 0.0-0.4 [facility] ([place]) Comment on above: Performed By: #### C BC, ADIFF, ANEU, FERR, FE #### [address] [address] Eosinophils/100 WBC (Bld) 1.4 % Normal 0.0-7.0 [facility] ([place]) Comment on above: Performed By: #### C BC, ADIFF, ANEU, FERR, FE #### [address] [address] Lymphocyte, Absolute 2.2 10 3/mcL Normal 0.8-3.9 [facility] ([place]) Comment on above: Performed By: #### C BC, ADIFF, ANEU, FERR, FE #### [address] [address] Lymphocytes/100 WBC (Bld) 34.2 % Normal 10.0-50.0 [facility] ([place]) Comment on above: Performed By: #### C BC, ADIFF, ANEU, FERR, FE #### [address] [address] Monocyte, Absolute 0.4 10 3/mcL Normal 0.2-1.0 [facility] ([place]) Comment on above: Performed By: #### C BC, ADIFF, ANEU, FERR, FE #### [address] [address] Monocytes/100 WBC (Bld) 6.8 % Normal 1.7-13.0 [facility] ([place]) Comment on above: Performed By: #### C BC, ADIFF, ANEU, FERR, FE #### [address] [address] Neutrophils/100 WBC (Bld) 57.2 % Normal 37.0-80.0 [facility] ([place]) Comment on above: Performed By: #### C BC, ADIFF, ANEU, FERR, FE #### [address] [address] .NEUABSon 12-18-2023 Neutrophil, Absolute 3.7 10 3/mcL Normal 2.9-6.2 [facility] ([place]) Comment on above: Performed By: #### C BC ADIFF, ANEU, FERR, FE #### [address] [address] CBCon 12-18-2023 Erythrocyte distribution width (RBC) [Ratio] 14.7 % High 11.5-14.5 [facility] ([place]) Comment on above: Performed By: #### C BC, ADIFF, ANEU, FERR, FE #### [place] [address] Hematocrit (Bld) [Volume fraction] 40.9 % Normal 37.0-47.0 [facility] ([place]) Comment on above: Performed By: #### C BC ADIFF, ANEU, FERR, FE #### [place] [address] Hgb 13.5 G/dL Normal 12.0-16.0 [facility] ([place]) Comment on above: Performed By: #### C BC ADIFF, ANEU, FERR, FE #### [place] [address] MCH (RBC) [Entitic mass] 31.0 pg Normal 27.0-31.2 [facility] ([place]) Comment on above: Performed By: #### C BC, ADIFF, ANEU, FERR, FE #### [place] [address] MCHC 33.0 G/dL Normal 33.0-37.0 [facility] ([place]) Comment on above: Performed By: #### C BC, ADIFF, ANEU, FERR, FE #### [place] [id number] MCV (RBC) [Entitic vol] 94.1 fL High 80.0-94.0 [facility] ([place]) Comment on above: Performed By: #### C BC, ADIFF, ANEU, FERR, FE #### [place] [address] Platelet 137 10 3/mcL Normal 130-400 [facility] ([place]) Comment on above: Performed By: #### C BC, ADIFF, ANEU, FERR, FE #### [place] [address] Platelet mean volume (Bld) [Entitic vol] 9.8 fL Normal 7.4-10.4 [facility] ([place]) Comment on above: Performed By: #### C BC, ADIFF, ANEU, FERR, FE #### [place] [address] RBC 4.34 10 6/mcL Normal 4.20-5.40 [facility] ([place]) Comment on above: Performed By: #### C BC, ADIFF, ANEU, FERR, FE #### [place] [address] WBC 6.5 10 3/mcL Normal 4.6-10.8 [facility] ([place]) Comment on above: Performed By: #### C BC, ADIFF, ANEU, FERR, FE #### [place] [address] FEon 12-18-2023 Iron [Mass/Vol] 93 ug/dL Normal 50-170 [facility] ([place]) Comment on above: Performed By: #### C BC, ADIFF, ANEU, FERR, FE #### [place] [address] Travis 12-18-2023 Ferritin [Mass/Vol] 25.0 ng/mL Normal 8.0-252.0 [facility] ([place]) Comment on above: Performed By: #### C BC, ADIFF, ANEU, FERR, FE #### [place] [address] LABORATORYOrdered By: SYSTEM SYSTEM on 12-18-2023 Basophil, [...] Basophil, Absolute 0.0 10 3/mcL Normal 0.0-0.2 [facility] ([place]) Comment on above: Performed By: #### F ERR, FE, MORPH, CBC, ADIFF, ANEU #### [address] [address] Basophils/100 WBC (Bld) 0.6 % Normal 0.0-2.5 [facility] ([place]) Comment on above: Performed By: #### F ERR, FE, MORPH, CBC, ADIFF, ANEU #### [address] [address] Eosinophil, Absolute 0.0 10 3/mcL Normal 0.0-0.4 [facility] ([place]) Comment on above: Performed By: #### F ERR, FE, MORPH, CBC, ADIFF, ANEU #### [address] [address] Eosinophils/100 WBC (Bld) 0.7 % Normal 0.0-7.0 [facility] ([place]) Comment on above: Performed By: #### F ERR, FE, MORPH, CBC, ADIFF, ANEU #### [address] [address] Lymphocyte, Absolute 1.7 10 3/mcL Normal 0.8-3.9 [facility] ([place]) Comment on above: Performed By: #### F ERR, FE, MORPH, CBC, ADIFF, ANEU #### [address] [address] Lymphocytes/100 WBC (Bld) 32.3 % Normal 10.0-50.0 [facility] ([place]) Comment on above: Performed By: #### F ERR, FE, MORPH, CBC, ADIFF, ANEU #### [address] [address] Monocyte, Absolute 0.4 10 3/mcL Normal 0.2-1.0 [facility] ([place]) Comment on above: Performed By: #### F ERR, FE, MORPH, CBC, ADIFF, ANEU #### [address] [address] Monocytes/100 WBC (Bld) 7.3 % Normal 1.7-13.0 [facility] ([place]) Comment on above: Performed By: #### F ERR, FE, MORPH, CBC, ADIFF, ANEU #### [address] [address] Neutrophils/100 WBC (Bld) 59.1 % Normal 37.0-80.0 [facility] ([place]) Comment on above: Performed By: #### F ERR, FE, MORPH, CBC, ADIFF, ANEU #### [address] [address] .[place] 06-10-2023 Anisocytosis Ql (Bld) 1+ Normal On license of [facility] ([place]) Comment on above: Performed By: #### F ERR, FE, MORPH, CBC, ADIFF, ANEU #### [place] [address] Platelet Estimate Normal Normal [facility] ([place]) Comment on above: Performed By: #### F ERR, FE, MORPH, CBC, ADIFF, ANEU #### [address] [address] Rouleaux 1+ Normal [facility] ([place]) Comment on above: Performed By: #### F ERR, FE, MORPH, CBC, ADIFF, ANEU #### [place] [address] .NEUABSon 06-10-2023 Neutrophil, Absolute 3.2 10 3/mcL Normal 2.9-6.2 [facility] ([place]) Comment on above: Performed By: #### C BC, ADIFF, ANEU, FERR, FE #### [place] [address] CBCon 06-10-2023 Erythrocyte distribution width (RBC) [Ratio] 25.0 % High 11.5-14.5 [facility] ([place]) Comment on above: Performed By: #### F ERR, FE, MORPH, CBC, ADIFF, ANEU #### [address] [address] Hematocrit (Bld) [Volume fraction] 32.0 % Low 37.0-47.0 [facility] ([place]) Comment on above: Performed By: #### F ERR, FE, MORPH, CBC, ADIFF, ANEU #### [address] [address] Hgb 10.1 G/dL Low 12.0-16.0 [facility] ([place]) Comment on above: Performed By: #### F ERR, FE, MORPH, CBC, ADIFF, ANEU #### [address] [address] MCH (RBC) [Entitic mass] 23.8 pg Low 27.0-31.2 [facility] ([place]) Comment on above: Performed By: #### F ERR, FE, MORPH, CBC, ADIFF, ANEU #### [place] [address] MCHC 31.6 G/dL Low 33.0-37.0 [facility] ([place]) Comment on above: Performed By: #### F ERR, FE, MORPH, CBC, ADIFF, ANEU #### [place] [address] MCV (RBC) [Entitic vol] 75.5 fL Low 80.0-94.0 [facility] ([place]) Comment on above: Performed By: #### F ERR, FE, MORPH, CBC, ADIFF, ANEU #### [address] [address] Platelet 175 10 3/mcL Normal 130-400 [facility] ([place]) Comment on above: Performed By: #### F ERR, FE, MORPH, CBC, ADIFF, ANEU #### [address] [address] Platelet mean volume (Bld) [Entitic vol] 10.0 fL Normal 7.4-10.4 [facility] ([place]) Comment on above: Performed By: #### F ERR, FE, MORPH, CBC, ADIFF, ANEU #### [address] [address] RBC 4.24 10 6/mcL Normal 4.20-5.40 [facility] ([place]) Comment on above: Performed By: #### F ERR, FE, MORPH, CBC, ADIFF, ANEU #### [address] [address] WBC 5.3 10 3/mcL Normal 4.6-10.8 [facility] ([place]) Comment on above: Performed By: #### F ERR, FE, MORPH, CBC, ADIFF, ANEU #### [address] [address] FEon 06-10-2023 Iron [Mass/Vol] 26 ug/dL Low 50-170 [facility] ([place]) Comment on above: Performed By: #### F ERR, FE, MORPH, CBC, ADIFF, ANEU #### [address] [address] Travis 06-10-2023 Ferritin [Mass/Vol] 9.0 ng/mL Normal 8.0-252.0 [facility] ([place]) Comment on above: Performed By: #### F ERR, FE, MORPH, CBC, ADIFF, ANEU #### [address] [address] .Auto Diffon 05-10-2023 Basophil, Absolute 0.0 10 3/mcL Normal 0.0-0.2 [facility] ([place]) Comment on above: Performed By: #### C BC, ADIFF, ANEU, FERR, FE #### [address] [address] Basophils/100 WBC (Bld) 0.8 % Normal 0.0-2.5 [facility] ([place]) Comment on above: Performed By: #### C BC, ADIFF, ANEU, FERR, FE #### [address] [address] Eosinophil, Absolute 0.1 10 3/mcL Normal 0.0-0.4 [facility] ([place]) Comment on above: Performed By: #### C BC, ADIFF, ANEU, FERR, FE #### [address] [address] Eosinophils/100 WBC (Bld) 1.3 % Normal 0.0-7.0 [facility] ([place]) Comment on above: Performed By: #### C BC, ADIFF, ANEU, FERR, FE #### [address] [address] Lymphocyte, Absolute 2.3 10 3/mcL Normal 0.8-3.9 [facility] ([place]) Comment on above: Performed By: #### C BC, ADIFF, ANEU, FERR, FE #### [address] [address] Lymphocytes/100 WBC (Bld) 38.7 % Normal 10.0-50.0 [facility] ([place]) Comment on above: Performed By: #### C BC, ADIFF, ANEU, FERR, FE #### [address] [address] Monocyte, Absolute 0.4 10 3/mcL Normal 0.2-1.0 [facility] ([place]) Comment on above: Performed By: #### C BC, ADIFF, ANEU, FERR, FE #### [address] [address] Monocytes/100 WBC (Bld) 6.6 % Normal 1.7-13.0 [facility] ([place]) Comment on above: Performed By: #### C BC, ADIFF, ANEU, FERR, FE #### [address] [address] Neutrophils/100 WBC (Bld) 52.6 % Normal 37.0-80.0 [facility] ([place]) Comment on above: Performed By: #### C BC, ADIFF, ANEU, FERR, FE #### [address] [address] .GFRon 05-10-2023 GFR 97 ml/min/1.73sqm Normal [facility] ([place]) Comment on above: Result Comment: GFR Population [...] C FRANK ELAM ANEU, FERR, FE #### [address] [address] GFR Non- 80 ml/min/1.73sqm Normal [facility] ([place]) Comment on above: Result Comment: GFR Population [...] C FRANK ELAM ANEU, FERR, FE #### [address] [address] .Morphon 05-10-2023 Platelet Estimate Normal Normal [facility] ([place]) Comment on above: Performed By: #### C FRANK ELAM ANEU, FERR, FE #### [address] [address] .NEUABSon 05-10-2023 Neutrophil, Absolute 3.1 10 3/mcL Normal 2.9-6.2 [facility] ([place]) Comment on above: Performed By: #### C BC, ADIFF, ANEU, FERR, FE #### [address] [address] BMPon 05-10-2023 BUN/Creatinine Ratio 14 ratio Normal 7-27 [facility] ([place]) Comment on above: Performed By: #### C BC, ADIFF, ANEU, FERR, FE #### [place] [address] Calcium [Mass/Vol] 10.3 mg/dL High 8.4-10.2 [facility] ([place]) Comment on above: Performed By: #### C BC, ADIFF, ANEU, FERR, FE #### [place] [address] Chloride [Moles/Vol] 109 mmol/L High 98-107 [facility] ([place]) Comment on above: Performed By: #### C BC, ADIFF, ANEU, FERR, FE #### [place] [address] CO2 [Moles/Vol] 27 mmol/L Normal 23-31 [facility] ([place]) Comment on above: Performed By: #### C BC, ADIFF, ANEU, FERR, FE #### [place] [address] Creatinine [Mass/Vol] 0.71 mg/dL Normal 0.55-1.02 On license of [facility] ([place]) Comment on above: Performed By: #### C BC, ADIFF, ANEU, FERR, FE #### [place] [id number] Electrolyte Balance 9.0 mEq/L Normal 4.0-15.0 [facility] ([place]) Comment on above: Performed By: #### C BC, ADIFF, ANEU, FERR, FE #### [place] [address] Glucose [Mass/Vol] 107 mg/dL Normal 83-110 [facility] ([place]) Comment on above: Performed By: #### C BC, ADIFF, ANEU, FERR, FE #### [address] [address] Potassium [Moles/Vol] 4.5 mmol/L Normal 3.5-5.1 On license of [facility] ([place]) Comment on above: Performed By: #### C BC, ADIFF, ANEU, FERR, FE #### [address] [address] Sodium [Moles/Vol] 145 mmol/L Normal 136-145 [facility] ([place]) Comment on above: Performed By: #### C BC, ADIFF, ANEU, FERR, FE #### [place] [address] Urea nitrogen [Mass/Vol] 10 mg/dL Normal 7-18 [facility] ([place]) Comment on above: Performed By: #### C BC, ADIFF, ANEU, FERR, FE #### [address] [address] CBCon 05-10-2023 Erythrocyte distribution width (RBC) [Ratio] 20.1 % High 11.5-14.5 [facility] ([place]) Comment on above: Performed By: #### C BC, ADIFF, ANEU, FERR, FE #### [place] [address] Hematocrit (Bld) [Volume fraction] 28.2 % Low 37.0-47.0 [facility] ([place]) Comment on above: Performed By: #### C BC, ADIFF, ANEU, FERR, FE #### [place] [address] Hgb 8.8 G/dL Low 12.0-16.0 [facility] ([place]) Comment on above: Performed By: #### C BC, ADIFF, ANEU, FERR, FE #### [place] [address] MCH (RBC) [Entitic mass] 21.7 pg Low 27.0-31.2 [facility] ([place]) Comment on above: Performed By: #### C BC, ADIFF, ANEU, FERR, FE #### [address] [address] MCHC 31.0 G/dL Low 33.0-37.0 [facility] ([place]) Comment on above: Performed By: #### C BC, ADIFF, ANEU, FERR, FE #### [address] [address] MCV (RBC) [Entitic vol] 69.9 fL Low 80.0-94.0 [facility] ([place]) Comment on above: Performed By: #### C BC, ADIFF, ANEU, FERR, FE #### [address] [address] Platelet 183 10 3/mcL Normal 130-400 [facility] ([place]) Comment on above: Performed By: #### C BC, ADIFF, ANEU, FERR, FE #### [address] [address] Platelet mean volume (Bld) [Entitic vol] 9.2 fL Normal 7.4-10.4 [facility] ([place]) Comment on above: Performed By: #### C BC, ADIFF, ANEU, FERR, FE #### [address] [address] RBC 4.04 10 6/mcL Low 4.20-5.40 [facility] ([place]) Comment on above: Performed By: #### C BC, ADIFF, ANEU, FERR, FE #### [address] [address] WBC 5.9 10 3/mcL Normal 4.6-10.8 [facility] ([place]) Comment on above: Performed By: #### C BC, ADIFF, ANEU, FERR, FE #### [address] [address] FEon 05-10-2023 Iron [Mass/Vol] 14 ug/dL Low 50-170 [facility] ([place]) Comment on above: Performed By: #### C BC, ADIFF, ANEU, FERR, FE #### [address] [address] Travis 05-10-2023 Ferritin [Mass/Vol] 6.0 ng/mL Low 8.0-252.0 [facility] ([place]) Comment on above: Performed By: #### C FRANK ELAM ANEU, FERR, FE #### [place] [id number] LABORATORYOrdered By: SYSTEM SYSTEM on 05-10-2023 Immature [...] Retic Fraction 0.33 IRF Normal 0.20-0.46 [facility] ([place]) Comment on above: Performed By: #### C FRANK ELAM ANEU, FERR, FE #### [place] [address] [place], [place] [address] Reticulocytes, Auto 1.0 % Normal 0.2-2.3 [facility] ([place]) Comment on above: Performed By: #### C BC, ADIFF, ANEU, FERR, FE #### [facility] [address] [place], [place] [address] TSHon 05-10-2023 TSH Qn 2.13 m[IU]/L Normal 0.36-3.74 [facility] ([place]) Comment on above: Performed By: #### C MARIALUISA, FRANK, ANEU, FERR, FE #### [facility] [address] [place], [place] [address] Absolute lymphocyte countOrd ered By: María Roque on 03-20-2023 Lymphocytes Auto (Unsp spec) [#/Vol] 1.52 10*3/uL 0.83-4.51 [facility] Basophil percentageOrdered B y: María Roque on 03-20-2023 Basophil percentage 10-25 SEEN /hpf 0-5 [facility] Basophils/100 WBC (Bld) 0.6 % 0-1 [facility] Chloride [Moles/Vol] 110 mmol/L 98-[address] [facility] Eosinophils/100 WBC (Bld) 0.8 % 0-5 [facility] Glucose [Mass/Vol] 95 mg/dL 74-106 [facility] Neutrophils (Bld) [#/Vol] 3.0 10*3/uL 2.0-7.7 [facility] Neutrophils/100 WBC (Bld) 60.9 % 47-70 [facility] Potassium [Moles/Vol] 4.1 mmol/L 3.5-5.1 [facility] Comment on above: Moderate Hemolysis, Result may be falsely increased. Sodium [Moles/Vol] 141 mmol/L 136-145 [facility] WBC (Bld) [#/Vol] 4.9 10*3/uL 4.4-11.0 [facility] Bilirubin Test strip Ql (U)O rdered By: María Roque on 03-20-2023 Bilirubin Ql (U) Negative Negative [facility] Blood erythrocytes count (nu mber/volume)Ordered By: María Roque on 03-20-2023 RBC (Bld) [#/Vol] 4.03 10*6/uL 4.2-5.4 [facility] Blood hemoglobin measurement (mass/volume)Ordered By: María Roque on 03-20-2023 Hemoglobin (Bld) [Mass/Vol] 8.5 g/dL 12.0-15.0 [facility] Blood lymphocytes/100 leukoc ytesOrdered By: María Roque on 03-20-2023 Lymphocytes/100 WBC (Bld) 30.8 % 19-41 [facility] Blood monocytes/100 leukocyt esOrdered By: María Roque on 03-20-2023 Monocytes/100 WBC (Bld) 6.9 % 0-10 [facility] Blood platelet mean volumeOr dered By: María Roque on 03-20-2023 Platelet mean volume (Bld) [Entitic vol] 11.2 fL 6.2-12.0 [facility] Determination of erythrocyte mean corpuscular volume (MCV)Ordered By: María Roque on 03-20-2023 MCV (RBC) [Entitic vol] 73.0 fL 81-99 [facility] Hematocrit Auto (Bld) [Volum e fraction]Ordered By: María Roque on 03-20-2023 Hematocrit (Bld) [Volume fraction] 29.4 % 37-47 [facility] Ketones Test strip Ql (U)Ord ered By: María Roque on 03-20-2023 Ketones Ql (U) 15 mg/dl Negative [facility] Laboratory - Chemistry and C hemistry - challengeOrdered By: María Roque on 03-20-2023 CO2 [Moles/Vol] 28.0 mmol/L 21.0-32.0 [facility] Natriuretic peptide B (Bld) [Mass/Vol] 101.3 pg/mL 0-100 [facility] Urea nitrogen/Creatinine [Mass ratio] 26.5 mg/mg 10-20 [facility] Laboratory - Hematology and Cell countsOrdered By: María Roque on 03-20-2023 Erythrocyte distribution width (RBC) [Entitic vol] 51.4 fL 35.1-43.9 [facility] Erythrocyte distribution width (RBC) [Ratio] 19.5 % 11.6-14.6 [facility] Immature granulocytes/100 WBC (Bld) 0.000 % 0.0-0.9 [facility] Comment on above: IG% - Immature Granu locytes (promyelocytes, myelocytes and metamyelocytes) > 1% indicates that a LEFT SHIFT is Present. MCH (RBC) [Entitic mass] 21.1 pg 27.0-32.0 [facility] Nucleated RBC/100 WBC (Bld) [Ratio] 0 % 0-5 [facility] MCHC Auto (RBC) [Mass/Vol]Or dered By: María Roque on 03-20-2023 MCHC (RBC) [Mass/Vol] 28.9 g/dL 32-36 [facility] Mucus LM Ql (Urine sed)Order ed By: María Roque on 03-20-2023 Mucus Ql (Urine sed) 0 SEEN /hpf [facility] Nitrite Test strip Ql (U)Ord ered By: María Roque on 03-20-2023 Nitrite Ql (U) Negative Negative [facility] No Panel InformationOrdered By: María Roque on 03-20-2023 Estimated Creatinine Clearance Calc 40.21 ml/min [facility] Estimated GFR (MDRD) Amer 125 mL/min >60 [facility] Comment on above: GFR Calc Estimated GFR (MDRD) Non-Af Amer 103 mL/min >60 [facility] Comment on above: Non- GFR Calc Troponin I High Sensitivity 7 pg/mL 3.0-54.0 [facility] Comment on above: Please Note: New Liliane t Units and Gender Specific Reference Ranges. For more information see Policy Stat Procedure Jones High Sensitivity Troponin (TNIH) and attachments. Platelets bldOrdered By: Emma Roque on 03-20-2023 Platelets (Bld) [#/Vol] 151 10*3/uL 150-450 [facility] Protein Test strip Ql (U)Ord ered By: María Mya on 03-20-2023 Protein Ql (U) Negative Negative [facility] Serum or plasma calcium crystal urement (mass/volume)Ordered By: María Roque on 03-20-2023 Calcium [Mass/Vol] 9.4 mg/dL 8.5-10.1 [facility] Serum or plasma creatinine m easurement (mass/volume)Ordered By: María Roque on 03-20-2023 Creatinine [Mass/Vol] 0.60 mg/dL 0.55-1.02 [facility] Comment on above: The validity of the calculated GFR & GFRAA in patients over 70 years has not been determined. Clinical correlation is essential. Serum or plasma urea nitroge n measurement (mass/volume)Ordered By: María Roque on 03-20-2023 Urea nitrogen [Mass/Vol] 16 mg/dL 7-18 [facility] Squamous epithelial cells de tection in urine sediment by light microscopyOrdered By: María Roque on 03-20-2023 Epithelial cells.squamous LM Ql (Urine sed) 0-5 SEEN /hpf 5-10 [facility] Thin prep Papanicolaou smear with manual screeningOrdered By: María Roque on 03-20-2023 Thin prep Papanicolaou smear with manual screening 3 5-15 [facility] Urine blood detectionOrdered By: María Roque on 03-20-2023 RBC Ql (U) Negative Negative [facility] RBC Ql (U) 0 SEEN /hpf 0-5 [facility] Urine clarityOrdered By: Emma Roque on 03-20-2023 Clarity (U) Sl. Cloudy Clear [facility] Urine color determinationOrd ered By: aMría Roque on 03-20-2023 Color (U) Yellow Yellow [facility] Urine glucose detectionOrder ed By: María Roque on 03-20-2023 Glucose Ql (U) Normal mg/dl Normal [facility] Urine leukocyte esterase det ection by dipstickOrdered By: María Roque on 03-20-2023 Leukocyte esterase Test strip Ql (U) 100 /ul Negative [facility] Urine pHOrdered By: María Un gur on 03-20-2023 pH (U) 6.5 [pH] 5.0 - 8.0 [facility] Urine sediment bacteria coun t by microscopy (number/high power field)Ordered By: María Roque on 03-20-2023 Bacteria LM.HPF (Urine sed) [#/Area] 0 /[HPF] None Seen [facility] Urine specific gravity measu rementOrdered By: María Roque on 03-20-2023 Specific gravity (U) [Rel density] 1.010 1.002-1.030 [facility] Urobilinogen Auto test strip Ql (U)Ordered By: María Roque on 03-20-2023 Urobilinogen Ql (U) 1 mg/dl Normal [facility] LABORATORYOrdered By: Jesus Anderson on 10-19-2022 Albumin DL <= 20 mg/L (U) [Mass/Vol] 1349 mcg/dL Invalid Interpretation Code AO ADM SS Albumin/Creatinine DL <= 20 mg/L (U) [Mass ratio] 9 mcg/mg Invalid Interpretation Code 0 - 30 mcg/mg AO ADM SS Creatinine (U) [Mass/Vol] 157.2 mg/dL Invalid Interpretation Code 28.0 - 117.0 mg/dL AO ADM SS LABORATORYOrdered By: [employer] on 10-19-2022 25-hydroxyvitamin D3 [Mass/Vol] 65.9 [...] bypass, intraop EGD CLINICAL INFORMATION: Morbid obesity [facility] CONVERTED ELECTRONIC SIGNATURE JO ANN BERRY M.D., PATHOLOGIST (Electronic signature on file) Final Signed Out: 09/06/2008 16:00 [facility] CONVERTED FINAL DIAGNOSIS FINAL DIAGNOSIS: GASTRIC AND BOWEL SEGMENTS, EXCISION - SEGMENTS OF UNREMARKABLE GASTRIC AND SMALL INTESTINAL TISSUES. SPECIMEN: GASTRIC [facility] CONVERTED GROSS DESCRIPTION GROSS DESCRIPTION: Gastric & bowel fragments Received in formalin labeled gastric and bowel fragments are multiple irregular fragments of gastric and intestinal tissues with stapled excision margins. The specimen in aggregate measures 6.5 x 4 x 2 cm. Sectioning reveals grossly unremarkable mucosa. Supervisor Blood sections of the tissue are submitted in three cassettes. EDS/gpl MICROSCOPIC DESCRIPTION: Slides reviewed. EDS/lrs [facility] CONVERTED ORDERING PROVIDER Ordering Provider: SYLVIA ROMERO [facility] Otheron 08-21-2008 CONVERTED CLINICAL HISTORY OPERATIVE PROCEDURE: Esophagogastroduode noscopy; colonoscopy CLINICAL INFORMATION: Screening; GERD [facility] CONVERTED ELECTRONIC SIGNATURE HALLIE CHURCH M.D. (Electronic signature on file) Final Signed Out: 08/21/2008 15:12 [facility] CONVERTED FINAL DIAGNOSIS FINAL DIAGNOSIS: A) GASTRIC BIOPSY (ANTRUM) - BENIGN GASTRIC MUCOSA WITH NO INFLAMMATORY PROCESS OR OTHER DIAGNOSTIC ABNORMALITY IDENTIFIED. B) BIOPSY OF GASTROESOPHAGEAL JUNCTION - CHRONICALLY INFLAMED SQUAMOUS AND GASTRIC-TYPE MUCOSA. COMMENT: No intestinal metaplasia is identified on the Alcian blue/PAS stain. SPECIMEN: (A) GASTRIC BIOPSY (B) G-E JUNCTION BIOPSY [facility] CONVERTED ORDERING PROVIDER Ordering Provider: SYLVIA ROMERO [facility] Vital Signs Date Time Vital Sign Value Performing Clinician Faci justin 04-14-2023 11:03-0500 Body temperature 97.7 [degF] Dr. Maksim Vitale Work Phone: [facility] 04-14-2023 11:03-0500 Diastolic blood pressure 82 mm[Hg] Dr. Maksim Vitale Work Phone: [facility] 04-14-2023 11:03-0500 Heart rate 58 /min Dr. Maksim Vitale Work Phone: [facility] 04-14-2023 11:03-0500 Respiratory rate 16 /min Dr. Maksim Vitale Work Phone: [facility] 04-14-2023 11:03-0500 SaO2% (BldA) [Mass fraction] 98 % Dr. Maksim Vitale Work Phone: [facility] 04-14-2023 11:03-0500 Systolic blood pressure 138 mm[Hg] Dr. Maksim Vitale Work Phone: [facility] 03-20-2023 13:39-0500 Diastolic blood pressure 77 mm[Hg] Dr. Maksim Vitale Work Phone: [facility] 03-20-2023 13:39-0500 Heart rate 81 /min Dr. Maksim Vitale Work Phone: [facility] 03-20-2023 13:39-0500 Respiratory rate 17 /min Dr. Maksim Vitale Work Phone: [facility] 03-20-2023 13:39-0500 SaO2% (BldA) [Mass fraction] 98 % Dr. Maksim Vitale Work Phone: [facility] 03-20-2023 13:39-0500 Systolic blood pressure 170 mm[Hg] Dr. Maksim Vitale Work Phone: [facility] 03-20-2023 10:45-0500 Body height 160.[address] Maksim Vitale Work Phone: [facility] 03-20-2023 10:45-0500 Body mass index (BMI) [Ratio] 30.9 kg/m2 Dr. Maksim Vitale Work Phone: [facility] 03-20-2023 10:45-0500 Body temperature 97.4 [degF] Dr. Maksim Vitale Work Phone: [facility] 03-20-2023 10:45-0500 Body weight 79.[address] Maksim Vitale Work Phone: [facility] 03-20-2023 10:33-0500 Diastolic blood pressure 96 mm[Hg] Dr. Maksim Vitale Work Phone: [facility] 03-20-2023 10:33-0500 Systolic blood pressure 222 mm[Hg] Dr. Maksim Vitale Work Phone: [facility] 03-20-2023 10:18-0500 Body mass index (BMI) [Ratio] 30.9 kg/m2 Dr. Maksim Vitale Work Phone: [facility] 03-20-2023 10:18-0500 Body temperature 97.7 [degF] Dr. Maksim Vitale Work Phone: [facility] 03-20-2023 10:18-0500 Body weight 79.[address] Maksim Vitale Work Phone: [facility] 03-20-2023 10:18-0500 Heart rate 77 /min Dr. Maksim Vitale Work Phone: [facility] 03-20-2023 10:18-0500 Respiratory rate 16 /min Dr. Maksim Vitale Work Phone: [facility] 03-20-2023 10:18-0500 SaO2% (BldA) [Mass fraction] 93 % Dr. Maksim Vitale Work Phone: [facility] 08-21-2008 15:120400 Body mass index (BMI) [Ratio] Sylvia Romero [facility] Encounters Encounter Date Encounter Type Care Provider Facility Start: 11-30-2024 End: 11-30-2024 ambulatory CHANDLER CADY DIRECTOR OF PLANNING-PREPARER MAKING DEPARTMENT Facility:[facility] Start: 11-30-2024 End: 11-30-2024 Patient encounter procedure LISA ENGEL MD [facility] Start: 09-21-2024 ambulatory MAKSIM VITALE DO Facil ity:[facility] Start: 08-11-2024 End: 08-11-2024 ambulatory Jas MONTERROSO Facility:[facility] Start: 07-10-2024 End: 07-10-2024 ambulatory MAKSIM VITALE DO Facility:[facility] Start: 06-03-2024 End: 06-03-2024 ambulatory Brittney Cross Facility:[facility] Start: 12-18-2023 End: 12-18-2023 ambulatory MAKSIM VITALE DO Facility:[facility] Start: 12-18-2023 End: 12-18-2023 Patient encounter procedure MAKSIM VITALE DO [facility] Start: 06-10-2023 End: 06-10-2023 ambulatory MAKSIM VITALE DO Facility:[facility] Start: 05-10-2023 End: 05-10-2023 ambulatory MAKSIM VITALE DO Facility:[facility] Start: 05-10-2023 End: 05-10-2023 Patient encounter procedure MAKSIM VITALE DO [facility] Start: 04-14-2023 End: 04-14-[address] Maksim Vitale Work Phone: [facility] Work Phone: Start: 04-14-2023 End: 04-14-[address] Maksim Vitale Work Phone: [facility] Work Phone: Start: 03-20-2023 Non-patient / Non-visit Dr. Naida Vitale Work Phone: [facility] Start: 03-20-2023 End: 03-20-2023 Emergency department patient visit Dr. Maksim Vitale Work Phone: [facility] Work Phone: Start: 03-20-2023 End: 03-20-[address] Maksim Vitale Work Phone: [facility] Work Phone: Start: 10-19-2022 End: 10-19-2022 Patient encounter procedure MAKSIM VITALE DO [facility] Start: 08-17-2008 End: 08-17-2008 Patient encounter procedure Sylvia Romero Work Phone: [facility] Start: 08-17-2008 Results Only Sylvia Armstrong Cesilia arriola Work Phone: [facility] Procedures Date Procedure Procedure Detail Performing [...] Date Care Activity Detail Author Start: 03-20-[address] [facility] Start: 12-19-2019 Influenza vaccination INFLUENZA (#1) [facility] Start: 11-21-2018 DIABETES SCREEN DIABETES SCREEN [facility] Start: 2013 ADVANCE DIRECTIVE DISCUSSION ADVANCE DIRECTIVE DISCUSSION [facility] Start: 2013 BONE DENSITY BONE DENSITY [facility] Start: 2013 PNEUMOVAX AGE 65 AND OVER WITH 5YR LOOKBACK (#1) PNEUMOVAX AGE 65 AND OVER WITH 5YR LOOKBACK (#1) [facility] Start: 1998 SHINGRIX VACCINE (1 of 2) SHINGRIX VACCINE (1 of 2) [facility] Start: 1998 Tuberculosis screening COLOREC GAYATRI CANCER SCREENING,SEE MODIFIER [facility] Start: 1993 LIPID SCREEN LIPID SCREEN [facility] Start: 1988 Mammography MAMMOGRAM [facility] Start: 1967 Urine microalbumin profile DTAP,TDAP,TD (1 - Tdap) [facility] Start: 1966 HEPATITIS C SCREENING HEPATITIS C SC [facility] Patient Education ED Peripheral Edema, Bilateral ED Hypertension, Established [facility] Work Phone: Patient referral [facility] Work Phone: Immunizations Immunization Date Immunization Notes Care Provider Jennifer lima 03-21-2023 RSV vaccine preF3, recombinant MAKSIM VITALE DO [facility] 01-22-2023 SARS-CoV-2 (COVID-19 ) [id number] MAKSIM VITALE DO [facility] 01-11-2023 influenza virus vacc ine, unspecified formulation MAKSIM VITALE DO [facility] 02-12-2022 influenza virus vacc ine, unspecified formulation MAKSIM VITALE DO [facility] 01-20-2022 SARS-CoV-2 (CV19)mRNA-1273 bivalent vac MAKSIM SIEGELY DO [facility] 07-27-2021 SARS-CoV-2 (COVID-19 ) mRNA-1273 vaccine MAKSIM VITALE DO [facility] 02-08-2021 SARS-CoV-2 (COVID-19 ) mRNA-1273 vaccine MAKSIM VITALE DO [facility] Comment on above: Result Comment: 2023: [id number] 07-01-2020 SARS-CoV-2 (COVID-19 ) mRNA-1273 vaccine MAKSIM VITALE DO [facility] 06-04-2020 SARS-CoV-2 (COVID-19 ) mRNA-1273 vaccine MAKSIM VITALE DO [facility] 02-15-2020 zoster vaccine recombinant MAKSIM AQUINOSAY DO [facility] 11-05-2019 zoster vaccine recombinant MAKSIM VITALE DO [facility] 05-29-2019 pneumococcal polysaccharide vaccine, 23 valent MAKSIM AQUINOSAY DO [facility] 05-27-2018 tetanus toxoid, redu diana diphtheria toxoid, and acellular pertussis vaccine, adsorbed MAKSIM AQUINOSAY DO [facility] 05-27-2017 pneumococcal conjuga te vaccine, 13 valent MAKSIM JAVI DO [facility] Payers Date Payer Category Payer Private Health Insurance [id number] 2024 Medicare [id number] 2024 Self-pay [id number] 2023 Medicare [id number] 2023 Private Health Insurance [id number] 2019 Medicare [id number] 1948 Unknown [id number] 1948 Unknown [id number] 1948 Unknown [id number] 1948 Unknown [id number] 1948 Unknown [id number] 1948 Unknown [id number] Private Health Insurance IDB [id number] Unknown [facility]ICAL [facility] [id number] Unknown [id number] Unknown [id number] Social History Date Type Detail Facility [facility] Sex Assigned At Not on file [facility] Start: 05-09-2019 End: 07-10-2024 Tobacco smoking status Never smoked tobacco (finding) [facility] Start: 1950 Sex Assigned At Female [facility] Start: 04-14-2023 Tobacco smoking stat [facility] Unknown if ever smoked [facility] Sexual Orientation [facility] Start: 10-12-2018 Sex Female (finding) [facility] Mental Status Date Assessment Result Facility 03-20-2023 Cognitive function Level Of Cons ciousness Awake;Alert;Appropriate;Follow s Commands [facility] Work Phone: Evaluation + Plan note Note Date & Type Note Facility Evaluation + Plan note Future Appointments Appointment Date:04/15/2023 03:30:00 PM Scheduled Provider:MAKSIM VITALE DO Location:[facility] Appointment Type:PC OV Diagnostic Tests PendingVitamin B12 Level 10/19/22 [facility] Evaluation + Plan note Note Date & Type Note Facility Evaluation + Plan note Future Appointments Appointment Date:06/10/2023 11:00:00 AM Scheduled Provider:MAKSIM VITALE DO Location:[facility] Appointment Type:PC OV [facility] Evaluation + Plan note Note Date & Type Note Facility Evaluation + Plan note Future Appointments Appointment Date:06/22/2024 01:00:00 PM Scheduled Provider:MAKSIM VITALE DO Location:[facility] Appointment Type:PC OV [facility] Evaluation + Plan note Laboratory Note Date & Type Note Facility Evaluation + Plan note Future Appointments Appointment Date:01/08/2025 01:00:00 PM Scheduled Provider:CHANDLER LAZAR Location:[facility] Appointment Type:PC OV Follow Up Future Scheduled TestsFerritin 06/22/24Iron Level 06/22/24Complete Blood Count 06/22/24Albumin/Creatinine Ratio, Random Urine 06/22/24Albumin/Creatinine Ratio, Random Urine 07/10/24Complete Metabolic Panel 06/22/24 [facility] Evaluation note Note Date & Type Note Facility Evaluation note Diagnosis Onset Date Hypertensive urgency acute Acute bronchitis acute Sinusitis, acute acute [facility] Work Phone: Hospital course Narrative Note Date & Type Note Facility Hospital course Narrative No data available for this section [facility] Hospital Discharge instructions Note Date & Type Note Facility Hospital Discharge instructions No data available for this section [facility] Progress note Note Date & Type Note Facility Progress note No data available for this section [facility] Chief Complaint and Reason for Visit Chief Complaint SWOLLEN ANKLES HTN COUGH, CONGESTION, NAUSEA Cough Reason for Visit Hypertensive urgency Acute bronchitis Sinusitis, acute Advance Directives No Advanced Directives Records Found Advance Directive Response Recorded Date/ Time Living Will No March 20 11:22am Power of Director Of Strategic Initiatives No March 20, 2023 11:22am Summary Purpose Family History No Family History Records Found Additional Source Comments Source Comments (unrecognize d section and content) In the event this informatio n is protected by the Federal Confidentiality of Alcohol and Drug Abuse Patient Records regulations: The Federal rules restrict any use of the information to criminally investigate or prosecute any alcohol or drug abuse patient.[facility] Patient Care team informatio n (unrecognized section [...] section and content) DATE CREATED AUTHOR 12/19/2023 [facility] ([place]) DATE CREATED AUTHOR AUTHOR'S ORGANIZ ATION 08/12/2024 [facility] DATE CREATED AUTHOR AUTHOR'S ORGANIZ ATION 12/02/2024 [facility] FOR RECORDS PERTAINING TO PATIENTS WHO ARE [...] BE BASED ON THE PRIMARY CLINICAL RECORDS. [facility] [employer] [facility]. provides no warranty or guarantee of the accuracy or completeness of information in this document.
--- NOTE | 2025-04-12 18:00 | ECHOD_ITS ---
Reason For Study Reason For Study: ARRYTHMIA Procedure This was a 2D Doppler, Color Flow transthoracic echocardiogram. Exam performed portable in patient room. Left Ventricle Normal LV size. Mild concentric left ventricular hypertrophy. The estimated ejection fraction is 55???60 %. Normal diastology for age. Right Ventricle Normal RV size. Normal systolic function. Atria The left and right atria are normal. Mitral Valve Mild diffuse mitral valve thickening. Mild diffuse mitral valve calcification. Mild mitral annular calcification. There is no mitral valve stenosis. Trivial mitral valve insufficiency. Tricuspid Valve Normal tricuspid valve. There is no tricuspid stenosis. Mild (1+) tricuspid valve insufficiency. Right ventricular systolic pressure estimated to be 35???40 mmHg. Mild pulmonary hypertension. Aortic Valve Trisinus/trileaflet aortic valve. Mild diffuse aortic valve thickening. Mild diffuse aortic valve calcification. There is no aortic valve stenosis. Trivial aortic valve insufficiency. Pulmonic Valve The pulmonic valve is not well visualized. There is no pulmonic valvular stenosis. Trivial pulmonic valve insufficiency. Great Vessels Ascending aorta borderline dilated measured at 3.4 cm. IVC is dilated with poor collapse. Right atrial pressure estimated at 15 mmHg. Pericardium/Pleural No pericardial effusion. MMode/2D Measurements & Calculations LVIDd: 5.2 cm IVSd: 0.95 cm Ao root diam: 3.8 cm LVIDs: 3.2 cm LVPWd: 1.1 cm FS: 37.7 % LAV(MOD-bp): 58.8 ml LVAd ap4: 32.0 cm2 SV(MOD-sp4): 56.9 ml LAV(MOD-bp) Indexed: 31.5 ml/m2 LVLd ap4: 8.6 cm SI(MOD-sp4): 30.5 ml/m2 LAV(MOD-sp2): 64.0 ml EDV(MOD-sp4): 96.8 ml LAV(MOD-sp4): 52.3 ml EDV(sp4-el): 101.0 ml LVAs ap4: 18.7 cm2 LVLs ap4: 7.5 cm ESV(MOD-sp4): 39.9 ml ESV(sp4-el): 39.8 ml EF(MOD-sp4): 58.8 % EF(sp4-el): 60.6 % SV(sp4-el): 61.2 ml LA A4 area: 18.9 cm2 RA A4 area: 14.2 cm2 Time Measurements MV dec time: 0.26 sec Doppler Measurements & Calculations MV E max dave: 81.3 cm/sec Lat Peak E' Dave: 9.0 cm/sec Med Peak E' Dave: 13.2 cm/sec MV A max dave: 82.4 cm/sec E/E' lat: 9.1 E/E' med: 6.2 MV E/A: 0.99 MV V2 max: 90.1 cm/sec Ao V2 max: 137.4 cm/sec MV max P.2 mmHg MV dec slope: 317.6 cm/sec2 Ao max P.6 mmHg MV V2 mean: 47.8 cm/sec Ao V2 mean: 95.3 cm/sec MV mean P.1 mmHg Ao mean P.0 mmHg MV V2 VTI: 34.0 cm Ao V2 VTI: 32.9 cm AV (velocity ratio): 0.88 LV V1 max: 121.5 cm/sec LV V1 max P.9 mmHg LV V1 mean P.8 mmHg LV V1 mean: 76.8 cm/sec LV V1 VTI: 29.1 cm
[2025-04-12 18:09] LABS: Magnesium 1.8 mg/dL (1.5-2.2)
[2025-04-12 19:46] LABS: Troponin T High Sens 4 HR 47 ng/L (<=14)
[2025-04-13 02:00] VITALS: BP 151/64; PULSE 60; RESP 16; TEMP 36.5; O2SAT 92
[2025-04-13 05:19] VITALS: BMI 32.5
--- NOTE | 2025-04-13 07:25 | PCM.PN.HOSP ---
Reason for Visit Chief Complaint: Dizziness, spots in her vision. Subjective Subjective No further episodes of SVT. Patient states she is back to baseline and feeling well. Anxious to go home. We did discuss if the echo looks okay cardiology felt she can discharge. Unfortunately echo not read today and will likely be able to discharge home tomorrow. Objective Data Objective Data Vital Signs: Vital Signs Temp Pulse Resp BP Pulse Ox O2 Del Method 97.7 F L 60 16 151/64 H 92 Room Air 04/13/25 02:00 04/13/25 02:00 04/13/25 02:00 04/13/25 02:00 04/13/25 02:00 04/13/25 04:59 Oxygen Delivery Method Room Air Weight: 83.5 kg Body Mass Index (BMI) 32.5 Lab / Micro Data 04/13/25 08:10 04/13/25 08:10 Labs: Laboratory Results - last 24 hr 04/12/25 14:02: WBC 6.6, RBC 4.37, Hgb 13.5, Hct 42.0, MCV 96.1, MCH 30.9, MCHC 32.1, RDW Std Deviation 48.8 H, RDW Coeff of Daphney 13.6, Plt Count 144 L, MPV 12.4 H, Immature Gran % (Auto) 0.300, Neut % (Auto) 71.4 H, Lymph % (Auto) 20.8, Fisher % (Auto) 6.0, Eos % (Auto) 1.2, Baso % (Auto) 0.3, Absolute Neuts (auto) 4.7, Absolute Lymphs (auto) 1.38, Nucleated RBC % 0, ESR 1, PT 13.3, INR 1.0, APTT 26.1, Sodium 145, Potassium 3.9, Chloride 107 H, Carbon Dioxide 24.7, Anion Gap 13, BUN 15, Creatinine 0.70, Estim Creat Clear Calc 59.54, Est GFR (MDRD) Non-Af 89, BUN/Creatinine Ratio 20.9 H, Glucose 127 H, Calcium 10.5, Total Bilirubin 0.50, AST 16, ALT 10, Alkaline Phosphatase 81, Troponin T High Sens 20 H, Total Protein 6.3, Albumin 4.0, Globulin 2.3, Albumin/Globulin Ratio 1.8 04/12/25 15:16: Lactic Acid 1.9 04/12/25 16:11: Magnesium 1.8, Troponin T Hi Sens 2 Hr 23 H 04/12/25 19:09: Troponin T Hi Sens 4Hr 47 H Micro: Microbiology 04/13/25 01:45 Mucosa - Nasopharyngeal Respiratory Panel (PCR) - Final Radiography Diagnostic Testing: Radiology Impression Brain CT 04/12/25 15:31 IMPRESSION: No acute intracranial abnormalities. Reading Location: COUNTS INCLUDE 234 BEDS AT THE [facility] Physical Exam Const alert, oriented x3, no apparent distress, healthy appearing and well nourished Constitutional Narrative: Obese, older, white female, sitting up in bed, multiple family members at bedside, patient appears comfortable, nontoxic HEENT head/scalp atraumatic and moist oral mucous membranes HEENT Narrative: Mallampati 2, no thrush Head and Scalp: normocephalic Resp normal respiratory effort, no retractions, no use of accessory muscles and clear to auscultation bilaterally Auscultation: Negative for rales, rhonchi or wheezes Cardio regular rate, regular rhythm, S1 normal heart sound, S2 normal heart sound, no murmurs, no rub, no gallops and no clicks GI normal to inspection, nondistended, normoactive bowel sounds, soft to palpation and non-tender Extremity no clubbing, cyanosis or edema Extremity Narrative: 2+ pedal pulses Neuro moves all extremities and no focal motor deficits Speech: speech normal Psych affect normal Psych Narrative: Very pleasant, joking, interacts appropriately, very pleasant Assessment & Plan Assessment/Plan (1) Accelerated hypertension: (2) Paroxysmal supraventricular tachycardia: (3) Lightheadedness: (4) Elevated troponin: (5) Hyperglycemia: (6) Thrombocytopenia: PLAN: Plan Paroxysmal supraventricular tachycardia - Patient with episodes of narrow complex tachycardia of uncertain etiology - Concern for flutter versus AVNRT - Cardiology transition to carvedilol - Maintain magnesium greater than 2 and potassium greater than 4 -Mag is 1.8 so we will give 2 g and potassium is currently 4.0 - Echocardiogram is pending and if okay okay for discharge Uncontrolled hypertension - No end-stage changes so not hypertensive emergency - Continue carvedilol as started - Patient was placed on losartan 50 mg daily - Continue Cardura - Continue home Lasix - If blood pressure remains elevated tomorrow with these medications we will start amlodipine - Per cardiology if systolic pressure is consistently less than 170 okay to discharge with goal blood pressure less than 150/90 acutely and outpatient blood pressure medication can be pushed to long-term goal of less than 130/80 Elevated Troponin - likely related to SVT/HTN - ECHO Pending Headache - Resolved Acute thrombocytopenia - Mild and stable - Outpatient workup if persistent on recheck CKD stage II - Creatinine remains at baseline - Age-related kidney disease most likely +/- could be related to poor related HTN Hyperglycemia - A1c WNL Obesity - Recommend weight loss - BMI 32.6 - Complicates treatment, prognosis, outcomes DVT prophylaxis - Continue subcu enoxaparin CODE STATUS - Full code was verified at the time of admission Charges/Coding Visit Charges Inpatient E&M: 14725 Subs Hosp L2
[2025-04-13 08:05] VITALS: BP 178/79; PULSE 60; RESP 14; TEMP 36.8; O2SAT 94
[2025-04-13 08:27] LABS: Hematocrit 37.3 % (37-47); Hemoglobin 12.2 g/dL (12.0-15.0); Immature Granulocytes Count 0.020 X10^3/uL (0.0-0.0); Mean Corp Hgb Conc 32.7 g/dL (32-36); Mean Corpuscular Volume 94.0 fL (81-99); Mean Platelet Vol. 11.7 fl (6.2-12.0); NRBC Flagged by Analyzer 0 % (0-5); Platelet Count 145 K/mm3 (150-450); RBC Distribution Width CV 13.8 % (11.6-14.6); RBC Distribution Width SD 47.5 fl (35.1-43.9); Red Blood Count 3.97 M/mm3 (4.2-5.4); White Blood Count 5.8 K/mm3 (4.4-11.0)
--- NOTE | 2025-04-13 08:28 | PCM.CONS.C ---
Assessment & Plan Assessment/Plan (1) Paroxysmal supraventricular tachycardia: PLAN: ? Patient with episodes of narrow complex tachycardia. Unsure of exact etiology concern for atrial flutter versus AVNRT ? It appears that beta-roxanne has reduced the frequency of episodes. Will discontinue metoprolol and start patient on carvedilol to help with controlling arrhythmias as well as blood pressure management. ? Prefer carvedilol over atenolol and elderly patient with history of CKD. ? Recommend maintaining normal electrolytes with goal potassium greater than 4.0 and magnesium greater than 2.0. ? If no significant abnormalities noted on echocardiogram then patient will be overall okay for discharge from cardiology standpoint. Would recommend that she follow-up in office with cardiology as outpatient likely needs referral to electrophysiology and consideration for EP study and ablation. (2) Severe hypertension: PLAN: ? Blood pressure remains poorly controlled. Could be situational related to anxiousness as well as pain related to her headache ? As noted above start patient on carvedilol 6.25 mg twice daily, losartan 50 mg daily, and continuation of doxazosin and Lasix. If blood pressure remains elevated consideration for starting on calcium channel roxanne either amlodipine or nifedipine ? Appreciate help with management from hospitalist team regarding treatment of her headache. ? Goal blood pressure less than 150/90. If able to maintain systolic blood pressure less than 170 then okay for discharge from cardiology standpoint. ? Will need to follow-up in office with her PCP for help with monitoring and management. Appreciate (3) Obesity (BMI 30-39.9): PLAN: ? BMI of 32.6. We discussed need for improved diet and exercise regiment along with weight loss ? Guideline recommendations for 150-180 minutes of moderate intensity exercise per week. (4) Chronic kidney disease: PLAN: ? Renal function currently with good control. Serum creatinine of 0.7. ? Monitor closely with addition of losartan as well as Lasix. ? Avoid nephrotoxic medications and treatments. PLAN: Plan ? Echocardiogram ordered will review however if no significant abnormalities then okay for discharge from cardiology standpoint. ? Recommend follow-up in office with cardiology after discharge. Consideration for EP referral and evaluation as outpatient ? Carvedilol and losartan along with other medications for better blood pressure control. ? If patient remains admitted cardiology will reevaluate tomorrow. HPI Consult Data Date of Consult: 04/13/25 HPI Narrative Reason for Consultation: Tachyarrhythmia HPI Narrative: IVAN MARTINES, is a 75 F with multiple comorbid conditions including manage limited to hypertension, hyperlipidemia, obesity, CKD, and chronic anemia presented to the emergency department due to multiple complaints. It appears that patient has been having a headache with some associated nausea but no vomiting also some episodes of lightheadedness/dizziness however denies any syncopal episodes. She reports that she has not been feeling well and after the headache and other symptoms started presented to the ED for evaluation. She denies any chest pain, shortness of breath, or other complaints. In the ED patient having episodes of narrow complex tachycardia [telemetry as well as EKGs personally reviewed patient appears to be likely in SVT] was provided adenosine which did resolve the narrow complex tachycardia. Patient admitted also due to accelerated hypertension blood pressure severely elevated during evaluation. Cardiology consulted due to episodes of tachyarrhythmia with associated lightheadedness/dizziness. Upon my evaluation this morning patient denies any concerning cardiovascular complaints or issues except for continued headache. She was evaluated with a CT scan negative for any acute abnormalities. Overall remains hemodynamically stable however blood pressure remains elevated. On telemetry patient continues to have some short episodes of narrow complex tachycardia unsure exactly of the rhythm however rate appears to be a lot slower compared to yesterday. [facility] Medical History GERD (gastroesophageal reflux disease) History of gastric ulcer Frequent headaches Anemia Hemorrhoids Arthritis Hypertension Home Medications ?Medication ?Instructions ?Recorded ?Last Taken ?Type doxazosin 4 mg tablet 4 mg PO QDAY 08/08/17 Unknown History lactobacillus combination no.8 3 3,000 mmu cells PO QDAY 08/08/17 Unknown History billion cell capsule (Adult Probiotic) fluticasone propionate 50 2 spray intranasal DAILY #9.9 grams 01/09/18 Unknown Rx mcg/actuation nasal spray,suspension (Flonase Allergy Relief) atenolol 25 mg tablet 25 mg PO DAILY 04/12/25 Unknown History clobetasol 0.05 % topical cream 1 applic topical BID PRN yeast 04/12/25 Unknown History infection conjugated estrogens 0.625 mg 0.625 mg PO DAILY 04/12/25 Unknown History tablet (Premarin) ferrous gluconate 240 mg (27 mg 240 mg PO BID 04/12/25 Unknown History iron) tablet furosemide 20 mg tablet (Lasix) 20 mg PO DAILY 04/12/25 Unknown History omeprazole 20 mg capsule,delayed 20 mg PO DAILY 04/12/25 Unknown History release Allergy/AdvReac Type Severity Reaction Status Date / Time Penicillins Allergy Intermediate Hives Verified 04/12/25 13:49 Sulfa (Sulfonamide Allergy Intermediate hives Verified 04/12/25 13:49 Antibiotics) adhesive tape Allergy Mild unknown Verified 04/12/25 13:49 Family History Mother Diabetes Heart disease Hypertension Father Diabetes Prostate cancer Grandmother Breast cancer Both maternal and paternal grandmothers. Family History no significant family his Surgical History S/P bladder repair S/P appendectomy H/O gastric bypass S/P bilateral mastectomy S/P tonsillectomy and adenoidectomy S/P cataract extraction Social History household members: spouse Smoking Status: Former smoker alcohol intake: never substance use type: does not use ROS ROS Narrative 12 systems reviewed and negative less stated above Physical Exam Const alert, oriented x3 and no apparent distress HEENT normocephalic Eyes PERRL Neck no carotid bruits Resp normal respiratory effort and clear to auscultation bilaterally Cardio regular rate, regular rhythm, no murmurs, no rub, no gallops and no JVD GI normal to inspection, nondistended, normoactive bowel sounds, soft to palpation and non-tender Extremity normal to inspection and full ROM Extremity Narrative: 1+ left lower extremity pitting edema; no significant edema on the right lower extremity Skin no rashes or lesions noted Neuro Neuro Narrative: Moves all extremities; sensation intact Psych Psych Narrative: Normal mood and affect Objective Data Vital Signs: Vital Signs Temp Pulse Resp BP Pulse Ox O2 Del Method 98.2 F 60 14 178/79 H 94 Room Air 04/13/25 08:05 04/13/25 08:05 04/13/25 08:05 04/13/25 08:05 04/13/25 08:05 04/13/25 08:24 Oxygen Delivery Method Room Air Weight: 184 lb 1.376 oz Body Mass Index (BMI) 32.5 Lab / Micro Data Attestation: I reviewed the patient's lab results. Lab results narrative: That results reviewed and discussed with the patient 04/13/25 08:10 04/12/25 14:02 Labs: Laboratory Results - last 24 hr 04/12/25 14:02: WBC 6.6, RBC 4.37, Hgb 13.5, Hct 42.0, MCV 96.1, MCH 30.9, MCHC 32.1, RDW Std Deviation 48.8 H, RDW Coeff of Daphney 13.6, Plt Count 144 L, MPV 12.4 H, Immature Gran % (Auto) 0.300, Neut % (Auto) 71.4 H, Lymph % (Auto) 20.8, Smith % (Auto) 6.0, Eos % (Auto) 1.2, Baso % (Auto) 0.3, Absolute Neuts (auto) 4.7, Absolute Lymphs (auto) 1.38, Nucleated RBC % 0, ESR 1, PT 13.3, INR 1.0, APTT 26.1, Sodium 145, Potassium 3.9, Chloride 107 H, Carbon Dioxide 24.7, Anion Gap 13, BUN 15, Creatinine 0.70, Estim Creat Clear Calc 59.54, Est GFR (MDRD) Non-Af 89, BUN/Creatinine Ratio 20.9 H, Glucose 127 H, Calcium 10.5, Total Bilirubin 0.50, AST 16, ALT 10, Alkaline Phosphatase 81, Troponin T High Sens 20 H, Total Protein 6.3, Albumin 4.0, Globulin 2.3, Albumin/Globulin Ratio 1.8 04/12/25 15:16: Lactic Acid 1.9 04/12/25 16:11: Magnesium 1.8, Troponin T Hi Sens 2 Hr 23 H 04/12/25 19:09: Troponin T Hi Sens 4Hr 47 H 04/13/25 08:10: WBC 5.8, RBC 3.97 L, Hgb 12.2, Hct 37.3, MCV 94.0, MCH 30.7, MCHC 32.7, RDW Std Deviation 47.5 H, RDW Coeff of Daphney 13.8, Plt Count 145 L, MPV 11.7, Immature Gran % (Auto) 0.300, Neut % (Auto) 55.7, Lymph % (Auto) 35.0, Smith % (Auto) 6.4, Eos % (Auto) 2.3, Baso % (Auto) 0.3, Absolute Neuts (auto) 3.2, Absolute Lymphs (auto) 2.01, Nucleated RBC % 0 Micro: Microbiology 04/13/25 01:45 Mucosa - Nasopharyngeal Respiratory Panel (PCR) - Final Rhythm Strip Rhythm Strip: Sinus Rhythm (Mostly normal sinus rhythm however some sinus bradycardia noted as well as short episodes of narrow complex tachycardia) Cardiology Labs/Tests 04/12/25 14:02: WBC 6.6, RBC 4.37, Hgb 13.5, Hct 42.0, MCV 96.1, MCH 30.9, MCHC 32.1, Plt Count 144 L, MPV 12.4 H, Immature Gran % (Auto) 0.300, Neut % (Auto) 71.4 H, Lymph % (Auto) 20.8, Smith % (Auto) 6.0, Eos % (Auto) 1.2, Baso % (Auto) 0.3, Absolute Neuts (auto) 4.7, Nucleated RBC % 0, PT 13.3, INR 1.0, APTT 26.1, Sodium 145, Potassium 3.9, Chloride 107 H, Carbon Dioxide 24.7, Anion Gap 13, BUN 15, Creatinine 0.70, Est GFR (MDRD) Non-Af 89, BUN/Creatinine Ratio 20.9 H, Glucose 127 H, Calcium 10.5, Total Bilirubin 0.50 04/12/25 15:16: Lactic Acid 1.9 04/12/25 16:11: Magnesium 1.8 04/13/25 08:10: WBC 5.8, RBC 3.97 L, Hgb 12.2, Hct 37.3, MCV 94.0, MCH 30.7, MCHC 32.7, Plt Count 145 L, MPV 11.7, Immature Gran % (Auto) 0.300, Neut % (Auto) 55.7, Lymph % (Auto) 35.0, Smith % (Auto) 6.4, Eos % (Auto) 2.3, Baso % (Auto) 0.3, Absolute Neuts (auto) 3.2, Nucleated RBC % 0 Rhythm: EKG: ECHO: Stress Test: Cardiac Cath: PCI: CT Surgery: Holter monitor: EPS: PPM: CXR: Chest CT Scan: Radiography Diagnostic Testing: Radiology Impression Brain CT 04/12/25 15:31 IMPRESSION: No acute intracranial abnormalities. Reading Location: [facility] Risk Score for UA/STEMI Assesmment (YES = 1) Risk Stratification Applicable: No
[2025-04-13 09:05] LABS: AST(SGOT) 12 U/L (<=31); Alanine Aminotransfer ALT/SGPT 9 U/L (<=34); Albumin, Serum 3.5 g/dL (3.4-4.8); Alkaline Phosphatase 62 U/L (35-104); Anion Gap 9 (7-18); BUN 13 mg/dL (4-19); BUN/Creat Ratio 23.6 RATIO (10-20); Calcium,Total 10.0 mg/dL (7.6-11.0); Carbon Dioxide 24.6 mmol/L (20.0-29.0); Chloride 109 mmol/L (96-106); Cholesterol 175 mg/dL (<=200); Estimated Creatinine Clearance 60.28 ml/min (50-250); Globulin 1.9 g/dL (2.2-4.2); Glucose 98 mg/dL (70-99); Low Density Lipoprotein Calc. 97 mg/dL; Potassium 4.0 mmol/L (3.5-5.1); Triglycerides 83 mg/dL; Very Low Density Lipoprotein 17 mg/dL (5-40); cholesterol:hdl ratio screen 2.77
[2025-04-13] MEDS: Fluticasone 0.05% 1 SPRAY NASAL.SRY 2 SPRAY NASAL (09:17)
[2025-04-13] MEDS: Estrogens,Conj. 0.625 MG Tablet PO (09:18)
--- NOTE | 2025-04-13 13:46 | CASEMGMT ---
Social Work Face to Face with pt for initial transition planning/care coordination assessment. SW introduced self. Patient voices understanding and consents to assessment. Pt is A&O x4 and answers all questions appropriately at this time. Admitting Dx: symptomatic PSVT, accelerated HTN Primary Care Doctor: Dr. Alexei Huynh Speciality doctors: Tile Erector- Dr. Rg Insurance: [employer] and Medicare Pharmacy: Patient utilizes [facility] in [place]. Advanced directives: no. Information provided for review LNOK:. Christopher, 3 children- Kalie, Constance and Christopher. all three children live in the area. There are 4 steps into the home. Living Situation: Patient lives at home with her . ADL's/Prior level of functioning: independent Transportation: Patient still drives. DME: PATTIE, KASSY. MCC/home health history: none Mental Health: none Substance abuse history: none Assessment: Patient wants to [place] home. She does not want HH at [place]. PLAN: DC home no Liliana urias LISW
[2025-04-13 15:17] VITALS: BP 137/68; PULSE 62; RESP 14; TEMP 36.6; O2SAT 97
[2025-04-13 15:36] VITALS: BMI 32.5
--- NOTE | 2025-04-13 15:48 | CASEMGMT ---
Social Work Patient wants to DC and she does not HH at [place]. DARINEL Meyer
[2025-04-13] MEDS: Magnesium Sulfate 2 GM in Dextrose 5%-Water (100mL Bag) 100 ML IV (17:16)
[2025-04-13 21:20] VITALS: BP 206/87; PULSE 58; RESP 16; TEMP 36.9; O2SAT 97
[2025-04-13 21:28] VITALS: BP 206/87; PULSE 58
[2025-04-13] MEDS: 0.9% Saline Lock 10 ML Syringe IV (21:28)
[2025-04-13 21:38] VITALS: BMI 32.5
[2025-04-13 22:20] VITALS: BP 167/85; PULSE 61; RESP 14; TEMP 36.7; O2SAT 98
[2025-04-14 04:50] VITALS: BP 155/75; PULSE 60; RESP 14; TEMP 36.6; O2SAT 96
[2025-04-14 05:44] LABS: Mucous, Urine 0 SEEN /hpf (<or=2+); Red Blood Cells-Urine 0 SEEN /hpf (0-5); Squamous Epithelial Cells - UA 0 SEEN /hpf (5-10)
[2025-04-14 05:49] LABS: Color, Urine Yellow (Yellow); Glucose, Dipstick Normal (Normal); Ketone-Dipstick Negative (Negative); Leukocyte Esterase-Dipstick 500 /ul (Negative); Nitrite-Dipstick Negative (Negative); Occult Blood-Urine 25 /ul (Negative); Protein-Dipstick 30 mg/dl (Negative); Specific Gravity, Urine 1.010 (1.002-1.030); Urine Bilirubin Dipstick Negative (Negative)
[2025-04-14 06:00] VITALS: BMI 32.3
[2025-04-14 07:13] LABS: AST(SGOT) 13 U/L (<=31); Alanine Aminotransfer ALT/SGPT 7 U/L (<=34); Albumin, Serum 3.8 g/dL (3.4-4.8); Alkaline Phosphatase 65 U/L (35-104); Anion Gap 10 (7-18); BUN 10 mg/dL (4-19); BUN/Creat Ratio 17.3 RATIO (10-20); Calcium,Total 10.1 mg/dL (7.6-11.0); Carbon Dioxide 23.0 mmol/L (20.0-29.0); Chloride 108 mmol/L (96-106); Estimated Creatinine Clearance 60.02 ml/min (50-250); Globulin 2.1 g/dL (2.2-4.2); Glucose 112 mg/dL (70-99); Magnesium 2.0 mg/dL (1.5-2.2); Potassium 3.9 mmol/L (3.5-5.1)
[2025-04-14 07:59] VITALS: BP 204/83; PULSE 58; RESP 16; TEMP 36.3; O2SAT 95
[2025-04-14] MEDS: Fluticasone 0.05% 1 SPRAY NASAL.SRY 2 SPRAY NASAL (08:03)
[2025-04-14] MEDS: Estrogens,Conj. 0.625 MG Tablet PO (08:03)
--- NOTE | 2025-04-14 09:33 | PCM.PN.CARD ---
Subjective Subjective Patient seen and examined reports feeling significantly better this morning. Only complaint is dysuria with burning noted. She reports someone obtained a urinary sample this morning and was awaiting the results. Patient overall hemodynamically stable however blood pressure severely elevated this morning. No other concerning cardiovascular complaints or issues noted. Objective Data Vital Signs: Vital Signs Temp Pulse Resp BP Pulse Ox O2 Del Method 97.4 F L 58 L 16 204/83 H 95 Room Air 04/14/25 07:59 04/14/25 07:59 04/14/25 07:59 04/14/25 07:59 04/14/25 07:59 04/14/25 07:59 Oxygen Delivery Method Room Air Weight: 182 lb 8.684 oz Body Mass Index (BMI) 32.3 Intake & Output: Intake and Output for Last 24 Hours 04/12/25 04/13/25 04/14/25 23:59 23:59 23:59 Intake Total 1499 / 1499 Balance 1499 / 1499 Lab / Micro Data Attestation: I reviewed the patient's lab results. 04/13/25 08:10 04/14/25 05:59 Labs: Laboratory Results - last 24 hr 04/14/25 05:40: Urine Color Yellow, Urine Clarity Cloudy, Urine pH 7.0, Ur Specific [place] 1.010, Urine Protein 30 H, Urine Glucose (UA) Normal, Urine Ketones Negative, Urine Occult Blood 25 H, Urine Nitrite Negative, Urine Bilirubin Negative, Urine Urobilinogen 4 H, Ur Leukocyte Esterase 500 H, Urine RBC 0 SEEN, Urine WBC 10-25 SEEN, Ur Squamous Epith Cells 0 SEEN, Urine Bacteria 1+, Urine Mucus 0 SEEN 04/14/25 05:59: Sodium 141, Potassium 3.9, Chloride 108 H, Carbon Dioxide 23.0, Anion Gap 10, BUN 10, Creatinine 0.59 L, Estim Creat Clear Calc 60.02, Est GFR (MDRD) Non-Af 93, BUN/Creatinine Ratio 17.3, Glucose 112 H, Calcium 10.1, Magnesium 2.0, Total Bilirubin 0.80, AST 13, ALT 7, Alkaline Phosphatase 65, Total Protein 5.8 L, Albumin 3.8, Globulin 2.1 L, Albumin/Globulin Ratio 1.8 Micro: Microbiology 04/13/25 01:45 Mucosa - Nasopharyngeal Respiratory Panel (PCR) - Final Rhythm Strip Rhythm Strip: Sinus Rhythm (Mostly sinus rhythm. No further episodes of narrow complex tachycardia appreciated since admission) Cardiology Labs/Tests 04/14/25 05:40: Urine Color Yellow, Urine Clarity Cloudy, Urine pH 7.0, Ur Specific [place] 1.010, Urine Protein 30 H, Urine Glucose (UA) Normal, Urine Ketones Negative, Urine Occult Blood 25 H, Urine Nitrite Negative, Urine Bilirubin Negative, Urine Urobilinogen 4 H, Ur Leukocyte Esterase 500 H, Urine RBC 0 SEEN, Urine WBC 10-25 SEEN 04/14/25 05:59: Sodium 141, Potassium 3.9, Chloride 108 H, Carbon Dioxide 23.0, Anion Gap 10, BUN 10, Creatinine 0.59 L, Est GFR (MDRD) Non-Af 93, BUN/Creatinine Ratio 17.3, Glucose 112 H, Calcium 10.1, Magnesium 2.0, Total Bilirubin 0.80 Rhythm: EKG: ECHO: Stress Test: Cardiac Cath: PCI: CT Surgery: Holter monitor: EPS: PPM: CXR: Chest CT Scan: Radiography Diagnostic Testing: Radiology Impression Echocardiogram 04/12/25 18:00 Interpretation Summary The estimated ejection fraction is 55-60 %. Normal LV size. Mild concentric left ventricular hypertrophy. Normal diastology for age. Mild (1+) tricuspid valve insufficiency. Right ventricular systolic pressure estimated to be 35-40 mmHg. Mild pulmonary hypertension. IVC is dilated with poor collapse. Right atrial pressure estimated at 15 mmHg. Ordering Physician: Clemencia Yun Referring Physician: CHANDLER LAZAR Performed By: Winnie Cullen RCS Physical Exam Const alert and no apparent distress Orientation / Consciousness: awake Resp normal respiratory effort and clear to auscultation bilaterally Cardio regular rate, regular rhythm, no murmurs, no rub and no gallops GI normal to inspection, nondistended, normoactive bowel sounds and soft to palpation Extremity normal to inspection and no clubbing, cyanosis or edema Extremity Narrative: Left lower extremity with some mild swelling, difficult to appreciate edema Neuro Neuro Narrative: Moves all extremities Psych Psych Narrative: Normal mood and affect Assessment & Plan Assessment/Plan (1) Paroxysmal supraventricular tachycardia: PLAN: ? Resolution of episodes on telemetry. Unsure of exact etiology concern for atrial flutter versus AVNRT ? Recommend continuation of carvedilol at time of discharge ? Prefer carvedilol over atenolol and elderly patient with history of CKD. ? Recommend maintaining normal electrolytes with goal potassium greater than 4.0 and magnesium greater than 2.0. ? Echocardiogram with no significant abnormalities. ? Patient okay for discharge from cardiology standpoint if able to obtain adequate blood pressure control. Recommend that she follow-up in office with cardiology and consider referral to electrophysiology for further evaluation. (2) Severe hypertension: PLAN: ? Blood pressure with poor control this morning. For now continue carvedilol, losartan, and Lasix. Hospitalist team has added amlodipine ? Goal blood pressure less than 150/90. If able to maintain systolic blood pressure less than 170 then okay for discharge from cardiology standpoint. ? Will need to follow-up in office with her PCP for help with monitoring and management. (3) Obesity (BMI 30-39.9): PLAN: ? BMI of 32.3. We discussed need for improved diet and exercise regiment along with weight loss ? Guideline recommendations for 150-180 minutes of moderate intensity exercise per week. (4) Chronic kidney disease: PLAN: ? Renal function overall stable ? Recommend avoiding nephrotoxic medications and treatments PLAN: Plan ? As noted above patient okay for discharge from cardiology standpoint as long as blood pressure is able to be adequately controlled ? Recommend continuation of carvedilol instead of atenolol along with other medications ? Advised patient to follow-up in office with cardiology and consider electrophysiology referral to further evaluate arrhythmias. ? If patient remains admitted cardiology will reevaluate tomorrow Charges/Coding Visit Charges Inpatient E&M: 24503 Subs Hosp L2
[2025-04-14 09:50] VITALS: BP 147/82; PULSE 54
--- NOTE | 2025-04-14 12:04 | DS.PCM_ITS ---
Providers Date of Admission: 04/12/25 Date of Discharge: 04/14/25 Primary Care Physician: JAMES LUU Consultations 04/12/25 18:00 Consult: Cardiology Routine Consulting Provider: Raghavendra Pickard Reason for Consult: Symptomatic PSVT EMERGENT Consult: No MD Notified: Yes Date Notified: 04/12/25 Time Notified: 17:41 Method of Notification: Text Reason For Visit: SYMPTOMATIC PSVT, ACCELERATED HTN Diagnosis Discharge Diagnosis (1) Paroxysmal supraventricular tachycardia: Status: Acute Code(s): I47.10 - Supraventricular tachycardia, unspecified (2) Severe hypertension: Status: Acute Code(s): I10 - Essential (primary) hypertension (3) Obesity (BMI 30-39.9): Status: Acute Code(s): E66.9 - Obesity, unspecified (4) Chronic kidney disease: Status: Chronic Code(s): N18.9 - Chronic kidney disease, unspecified Medications at Discharge Home Medications doxazosin 4 mg tablet 4 mg PO QDAY 08/08/17 lactobacillus combination no.8 3 billion cell capsule (Adult Probiotic) 3,000 mmu cells PO QDAY 08/08/17 fluticasone propionate 50 mcg/actuation nasal spray,suspension (Flonase Allergy Relief) 2 spray intranasal DAILY #9.9 grams 01/09/18 clobetasol 0.05 % topical cream 1 applic topical BID PRN yeast infection 04/12/25 conjugated estrogens 0.625 mg tablet (Premarin) 0.625 mg PO DAILY 04/12/25 ferrous gluconate 240 mg (27 mg iron) tablet 240 mg PO BID 04/12/25 furosemide 20 mg tablet (Lasix) 20 mg PO DAILY 04/12/25 omeprazole 20 mg capsule,delayed release 20 mg PO DAILY 04/12/25 amlodipine 5 mg tablet 5 mg PO DAILY #30 tabs 04/14/25 carvedilol 6.25 mg tablet 6.25 mg PO BIDCM #60 tabs 04/14/25 cephalexin 500 mg capsule 500 mg PO Q12 #9 caps 04/14/25 losartan 50 mg tablet 50 mg PO DAILY #30 tabs 04/14/25 Hospital Course Operations None Procedures 2-D Echocardiogram, EKG and - (CT brain) Summary of Care Provided Minutes Spent on Discharge: 39 Hospital Course: Mrs. Quach is a 75-year-old white female who presented to the emergency department [facility] on 04/12/2025 due to dizziness/lightheadedness and spots in her vision. Symptoms started on the day of presentation. She also complained of acute bilateral headache that started out 30 minutes prior to arrival in the emergency department. She had moderate to severe associated nausea with no emesis. Visual disturbances started in the morning of presentation and given these ongoing symptoms she elicited evaluation emergency department. She did report that in mid March she had URI type symptoms with headache and congestion, rhinorrhea, sore throat and bodyaches and was tested for strep however it was negative. She stated on the interim she been placed on a 10-day course of antibiotic therapy which she has completed. Vital signs on presentation showed temperature of 98, heart rate 125, blood pressure was 189/94, respiratory 16 and pulse ox was 99% on room air. She was noted to have transient tachycardia on telemetry in the emergency department with heart rates accelerated up to 190 at 1 point. She also was persistently hypertensive. CBC was overtly unremarkable. Chemistry panel was overtly unremarkable. Lactic acid was 1.9. Hepatic profile was normal. Initial troponin was 20 with a delta of 23. She had a 4-hour troponin of 47. CT of the brain was unremarkable. EKG showed paroxysmal SVT with subtle ST-T wave changes. She was treated with 6 mg of adenosine and converted to normal sinus rhythm in the emergency department. NIH stroke scale was noted to be 0. She was given 5 mg of IV metoprolol, labetalol 30 mg x 1 dose and hydralazine 10 mg in addition to the adenosine. She was admitted to PCU due to paroxysmal SVT and accelerated hypertension. Cardiology was consulted and echocardiogram was ordered. Echocardiogram was performed and showed an EF of 55 to 60% with mild concentric LVH, 1+ tricuspid valve insufficiency, right ventricular systolic pressure of 35 to 40 mmHg and right atrial pressure estimated at 15 mmHg. Cardiology evaluated patient transitioned her beta-roxanne from atenolol to carvedilol and added losartan 50 mg daily. She was kept on her home Lasix and Cardura. Blood pressure still remains slightly elevated through the night from the 06/10-27 so we did add low-dose amlodipine at 5 mg as well. There was concern that this was potentially a flutter versus AVNRT and possibly EP evaluation would be required in the future. We did send her home with a 15-day event monitor and explicit instructions to follow-up with cardiology within next 2 weeks after discharge. Prescriptions for the above medications were sent at the time of discharge. She also developed dysuria overnight on the 26 and a UA was sent which was consistent with infection. Culture was sent and pending at the time of discharge and she was started on Keflex to complete a total of 5 days at the time of discharge. Patient needs to follow-up with cardiology as noted above and primary care physician within 1 to 2 weeks. Patient was discharged home with prescriptions sent to her local pharmacy and stable condition. Discharge diagnoses: Paroxysmal supraventricular tachycardia Lightheadedness-resolved Headache-resolved Uncontrolled hypertension Elevated troponin secondary to demand ischemia from SVT and elevated blood pressure Acute thrombocytopenia Hyperglycemia CKD stage II Obesity Physical Exam Narrative Patient complaining of significant dysuria that started last night. I did discuss with her UA was sent and looks infected so culture was sent as well and is pending but we will treat her as if she has a urinary tract infection. She states she feels well otherwise. Const alert, oriented x3, no apparent distress, no limitations, healthy appearing and well nourished; Negative for average body habitus Constitutional Narrative: Obese, older, white female, lying in bed, appears comfortable, nontoxic General Appearance: cooperative, comfortable, well kempt and well developed Exam Limitations: no limitations Nutritional Appearance: obese HEENT normocephalic, head/scalp atraumatic and moist oral mucous membranes HEENT Narrative: Mild hearing loss, Mallampati 2, no thrush Eyes conjunctivae normal Eyes Narrative: No scleral icterus Neck supple Neck Narrative: Trachea midline Resp normal respiratory effort, no retractions, no use of accessory muscles and clear to auscultation bilaterally Auscultation: Negative for rales, rhonchi or wheezes Cardio regular rate, regular rhythm, S1 normal heart sound, S2 normal heart sound, no murmurs, no rub, no gallops and no clicks GI normal to inspection, nondistended, normoactive bowel sounds, soft to palpation and non-tender Extremity no clubbing, cyanosis or edema Extremity Narrative: 2+ pedal pulses Skin no jaundice, no petechiae and no mottling Neuro moves all extremities and no focal motor deficits Speech: speech normal Psych affect normal Psych Narrative: Very pleasant, interacts appropriately, makes good eye contact Weight / BMI Weight Weight: 82.8 kg Body Mass Index (BMI) 32.3 ABG / Lab / Microbiology Data 04/13/25 08:10 04/14/25 05:59 Laboratory: Laboratory Results - last 24 hr 04/14/25 05:40: Urine Color Yellow, Urine Clarity Cloudy, Urine pH 7.0, Ur Specific [place] 1.010, Urine Protein 30 H, Urine Glucose (UA) Normal, Urine Ketones Negative, Urine Occult Blood 25 H, Urine Nitrite Negative, Urine Bilirubin Negative, Urine Urobilinogen 4 H, Ur Leukocyte Esterase 500 H, Urine RBC 0 SEEN, Urine WBC 10-25 SEEN, Ur Squamous Epith Cells 0 SEEN, Urine Bacteria 1+, Urine Mucus 0 SEEN 04/14/25 05:59: Sodium 141, Potassium 3.9, Chloride 108 H, Carbon Dioxide 23.0, Anion Gap 10, BUN 10, Creatinine 0.59 L, Estim Creat Clear Calc 60.02, Est GFR (MDRD) Non-Af 93, BUN/Creatinine Ratio 17.3, Glucose 112 H, Calcium 10.1, Magnesium 2.0, Total Bilirubin 0.80, AST 13, ALT 7, Alkaline Phosphatase 65, T otal Protein 5.8 L, Albumin 3.8, Globulin 2.1 L, Albumin/Globulin Ratio 1.8 Microbiology: Microbiology 04/13/25 01:45 Mucosa - Nasopharyngeal Respiratory Panel (PCR) - Final Radiography Diagnostic Testing: Radiology Impression Echocardiogram 04/12/25 18:00 Interpretation Summary The estimated ejection fraction is 55???60 %. Normal LV size. Mild concentric left ventricular hypertrophy. Normal diastology for age. Mild (1+) tricuspid valve insufficiency. Right ventricular systolic pressure estimated to be 35???40 mmHg. Mild pulmonary hypertension. IVC is dilated with poor collapse. Right atrial pressure estimated at 15 mmHg. Ordering Physician: Clemencia Yun Referring Physician: CHANDLER LAZAR Performed By: Widder, Winnie, RCS D/C Instructions Discharge Activity: Return to Normal Activity DC O2, CPAP, BIPAP Needs Home O2 Discharge instructions: No DC home with Oxygen: No Patient's Goals Of Care - F/U Goals Reviewed Goals of care reviewed with patient: Yes - No change Meaningful Use Info Meaningful Use Meaningful Use Diagnoses (Choose all that apply): None applicable Discharge Plan Admission Admit Date/Time: 04/12/25 16:53 Primary Reason for Your Visit: Lightheadedness/visual changes Attending Provider: Halle Ramirez Primary Care Provider: CHANDLER LAZAR Consulting Providers: Raghavendra Pickard; Clemencia Yun Instructions Additional Instructions / Restrictions: 1. Please call the robotic technician office on Wednesday to get set up for a follow-up appointment 2. Please take all medications below as instructed 3. Per our discussion you will be sent what is called an event monitor to wear for 14 days. Please follow the instructions in the insert. Discharge Orders/Prescriptions Prescriptions: New amlodipine 5 mg Tablet 5 mg PO DAILY Qty: 30 0RF carvedilol 6.25 mg Tablet 6.25 mg PO BIDCM Qty: 60 0RF cephalexin 500 mg Capsule 500 mg PO Q12 Qty: 9 0RF losartan 50 mg Tablet 50 mg PO DAILY Qty: 30 0RF Continued lactobacillus combination no.8 [Adult Probiotic] 3 billion cell capsule 3,000 mmu cells PO QDAY doxazosin 4 mg tablet 4 mg PO QDAY fluticasone propionate [Flonase Allergy Relief] 50 mcg/actuation spray,suspension 2 spray INTRANASAL DAILY Qty: 9.9 0RF Rx Instructions: administer into each nostril clobetasol 0.05 % cream 1 applic topical BID PRN (Reason: yeast infection) ferrous gluconate 240 mg (27 mg iron) tablet 240 mg PO BID conjugated estrogens [Premarin] 0.625 mg tablet 0.625 mg PO DAILY omeprazole 20 mg capsule,delayed release(DR/EC) 20 mg PO DAILY furosemide [Lasix] 20 mg tablet 20 mg PO DAILY Discontinued atenolol 25 mg tablet 25 mg PO DAILY Other Ambulatory Orders: 14 Day Event Recorder Preventi (Urgent) Timeframe: 1 Day Facility: [facility] - Location: Cardiovascular Services Ordered By: Dr. Halle Ramirez Referrals / Follow Up: Ricki Marcelo MD [Med Staff - Active Staff, Cardiology] - Within 2 Weeks Referral Note: Call Wednesday to set up an appointment CHANDLER LAZAR NP-C [Primary Care Provider, Family Practice] - Within 2 Weeks Disposition Disposition (needs filled in before D/C Order can be placed): Home, Self Care Charges/Coding Visit Charges Inpatient E&M: 00695 Disch Hosp >30min
== END 2025-04-14 14:50 | disposition home or self-care (01) | DRG 309 ==
LOC: ED 16:44 → PCU 17:30
PROVIDERS: Internal Medicine; Admitting Provider Family Medicine; Emergency Provider Emergency Medicine; PCP Nurse Practitioner Family; Visit Provider Internal Medicine
DX: I47.10 Supraventricular tachycardia, unspecified (principal); I24.89 Other forms of acute ischemic heart disease; I16.9 Hypertensive crisis, unspecified; D69.6 Thrombocytopenia, unspecified; I12.9 Hypertensive chronic kidney disease with stage 1 through stage 4 chronic kidney disease, or unspecified chronic kidney disease; E66.9 Obesity, unspecified; N18.2 Chronic kidney disease, stage 2 (mild); R73.9 Hyperglycemia, unspecified; Z68.31 Body mass index [BMI] 31.0-31.9, adult; Z79.899 Other long term (current) drug therapy; Z87.891 Personal history of nicotine dependence
CPT/HCPCS: 36415; 70450; 80053; 80061; 81001; 83036; 83605; 83735; 84443; 84484; 85025; 85610; 85652; 85730; 87086; 87088; 87633; 93005; 93306; 94668; 97162; 97165; 99283; A4216; J0153